=== PATIENT | female | born 1955 | race Caucasian/White ===

== ENCOUNTER 2024-01-01 12:44 | Outpatient (OUT) | payer MEDICARE, SELFPAY ==
--- NOTE | 2024-01-01 12:55 | MM_ITS ---
Patient Name: CASEY HAYES MR#: [id number] : 1955 Exam Date: 01/01/2024 Ordering Doctor: MARIETTA WASHINGTON CNP RADIOLOGY REPORT PROCEDURE: MM TOMOSYNTHESIS SCREENING BI COMPARISON: MG MAMM SCREEN 3D AMNA CAD, 12/30/2022. MG MAMM SCREEN 3D AMNA CAD, 04/22/2021. MG MAMM SCREEN AMNA W CAD, 08/31/2019. MG MAMM AMNA DIAG W CAD DIG, 03/21/2009. INDICATIONS: Screening Calculator Name NCI Breast Cancer Risk Assessment Tool 5 Year Breast Cancer Risk 1.90% Lifetime Breast Cancer Risk 6.40% Personal Breast Cancer No Personal Ovarian Cancer No Treatments None Family Cancers Aunt-maternal with breast cancer at age 80; Mother with colon cancer at age 79; Sister with cervical cancer at age 60. LOCATION: [facility] BREAST COMPOSITION: Scattered areas fibroglandular density. FINDINGS: DIAGNOSTIC CATEGORY 2--BENIGN FINDING: RIGHT BREAST: No significant suspicious finding. Stable rim calcified oil cysts. No significant change has occurred. LEFT BREAST: No significant suspicious finding. Scattered benign-appearing lymph nodes are present. No significant change has occurred. RECOMMENDATIONS: ROUTINE MAMMOGRAM AND CLINICAL EVALUATION IN 12 MONTHS. PLEASE NOTE: A NORMAL MAMMOGRAM DOES NOT EXCLUDE THE POSSIBILITY OF BREAST CANCER. A CLINICALLY SUSPICIOUS PALPABLE LUMP SHOULD BE BIOPSIED. Dictated by: Frank Friedman M.D. on 01/01/2024 at 15:26 Approved by: Frank Friedman M.D. on 01/01/2024 at 15:28
== END 2024-01-01 12:45 | disposition home or self-care (01) ==
LOC: MAMMO 12:49
PROVIDERS: Visit Provider Nurse Practitioner Family
DX: Z12.31 Encounter for screening mammogram for malignant neoplasm of breast (principal); Z80.3 Family history of malignant neoplasm of breast; Z80.0 Family history of malignant neoplasm of digestive organs; Z80.8 Family history of malignant neoplasm of other organs or systems
CPT/HCPCS: 77063; 77067

== ENCOUNTER 2024-03-03 08:41 | Outpatient (OUT) | payer MEDICARE, SELFPAY ==
[2024-03-03 09:23] LABS: Basophils Absolute Auto 0.1 10^3/uL (0.0-0.1); Eosinophils Absolute Auto 0.3 10^3/uL (0.0-0.7); Eosinophils Percent Auto 3.5 % (0.9-7.0); Hematocrit 39.9 % (36.0-48.0); Hemoglobin 12.9 g/dL (12.0-16.0); Immature Granulocytes Abs Auto 0.01 10^3/uL (0.00-0.03); Immature Granulocytes Pct Auto 0.1 % (0.0-0.5); Lymphocytes Absolute Auto 2.1 10^3/uL (1.2-3.8); Mean Corpuscular HGB Conc 32.3 g/dL (29.9-35.2); Mean Corpuscular Hemoglobin 29.7 pg (26.7-34.0); Mean Corpuscular Volume 91.9 fL (81.0-99.0); Mean Platelet Volume 10.8 fL (9.5-13.5); Monocytes Absolute Auto 0.4 10^3/uL (0.3-0.8); Monocytes Percent Auto 6.1 % (1.7-12.0); Neutrophils Absolute Auto 4.3 10^3/uL (1.4-6.5); Neutrophils Percent Auto 60.3 % (43.0-75.0); Platelet Count 180 10^3/uL (150-450); Red Blood Count 4.34 10^6/uL (4.20-5.40); Red Cell Distribution Width 13.3 % (11.0-15.0); White Blood Count 7.2 10^3/uL (4.0-11.0)
[2024-03-03 09:51] LABS: Estimated Average Glucose 171 mg/dL; Glycohemoglobin A1C 7.6 % (4.5-6.2)
[2024-03-03 10:45] LABS: Alanine Aminotransferase 47 U/L (14-59); Albumin Globulin Ratio 1.1; Albumin Level 3.6 g/dL (3.4-5.0); Alkaline Phosphatase 84 U/L (46-116); Anion Gap 13.7; Aspartate Amino Transferase 30 U/L (15-37); Bilirubin Total 0.5 mg/dL (0.2-1.0); Calcium 9.3 mg/dL (8.5-10.1); Carbon Dioxide 25.7 mmol/L (21.0-32.0); Chloride 101 mmol/L (98-107); Chol HDL Ratio 3.3; Cholesterol 131 mg/dL (<=200); Estimated GFR (African America >60 (>=60); Estimated GFR (Non-African Ame >60 (>=60); Free T3 2.36 pg/mL (2.18-3.98); Globulin 3.2 g/dL; Glucose 162 mg/dL (74-106); HDL Cholesterol 40 mg/dL (40-60); Potassium 4.4 mmol/L (3.5-5.1); Sodium 136 mmol/L (136-145); Thyroid Stimulating Hormone 2.278 uIU/mL (0.358-3.740); Total Protein 6.8 g/dL (6.4-8.2); Triglycerides 216 mg/dL (<=150); VLDL CHOLESTEROL 43.2 mg/dL
[2024-03-04 11:11] LABS: Insulin 21.2 uIU/mL (2.6-24.9)
== END 2024-03-03 08:42 | disposition home or self-care (01) ==
LOC: LAB 08:43
PROVIDERS: PCP Nurse Practitioner Family; Visit Provider Nurse Practitioner Family
DX: E11.9 Type 2 diabetes mellitus without complications (principal)
CPT/HCPCS: 36415; 80053; 80061; 82306; 83036; 83525; 83540; 84436; 84443; 84481; 85025

== ENCOUNTER 2024-11-08 15:34 | Outpatient (OUT) | payer MEDICARE, SELFPAY ==
[2024-11-08 15:55] LABS: Hematocrit 41.7 % (36.0-48.0); Hemoglobin 13.8 g/dL (12.0-16.0); Mean Corpuscular HGB Conc 33.1 g/dL (29.9-35.2); Mean Corpuscular Volume 90.7 fL (81.0-99.0); Mean Platelet Volume 10.8 fL (9.5-13.5); Platelet Count 222 10^3/uL (150-450); Red Cell Distribution Width 12.9 % (11.0-15.0); White Blood Count 25.3 10^3/uL (4.0-11.0)
[2024-11-08 16:05] LABS: Alanine Aminotransferase 30 U/L (14-59); Albumin Globulin Ratio 0.8; Albumin Level 3.4 g/dL (3.4-5.0); Alkaline Phosphatase 74 U/L (46-116); Anion Gap 12.8; Aspartate Amino Transferase 25 U/L (15-37); BUN Creatinine Ratio 17.9; Bilirubin Total 1.5 mg/dL (0.2-1.0); Calcium 9.4 mg/dL (8.5-10.1); Carbon Dioxide 29.2 mmol/L (21.0-32.0); Chloride 94 mmol/L (98-107); Estimated GFR (African America >60 (>=60 mL/min/1.73m^2); Estimated GFR (Non-African Ame 52 (>=60 mL/min/1.73m^2); Globulin 4.1 g/dL; Glucose 291 mg/dL (74-106); Sodium 132 mmol/L (136-145); Total Protein 7.5 g/dL (6.4-8.2)
[2024-11-08 16:35] LABS: Lymphocytes Absolute Manual 1.01 10^3/uL (1.20-3.80); Monocytes Absolute Manual 2.02 10^3/uL (0.30-0.80); Segmented Neut Absolute Manual 22.26 10^3/uL (1.4-6.5)
== END 2024-11-08 15:35 | disposition home or self-care (01) ==
PROVIDERS: PCP Nurse Practitioner Family; Visit Provider Nurse Practitioner Family
DX: R10.31 Right lower quadrant pain (principal)
CPT/HCPCS: 36415; 80053; 85007; 85027

== ENCOUNTER 2024-11-08 16:32 | Emergency (ER) | payer MEDICARE, SELFPAY ==
[2024-11-08] VITALS (40 sets, daily range): BP systolic 133; BP diastolic 69; PULSE 81–102; TEMP 36.6; O2SAT 87–98; BMI 43.1
--- NOTE | 2024-11-08 17:14 | ED_ITS ---
HPI HPI - General Adult General Chief complaint: Recheck/Abnormal Lab/Rx Stated complaint: abnormal labs Time Seen by Provider: 11/08/24 16:50 Source: patient Mode of arrival: walk-in Limitations: no limitations History of Present Illness HPI narrative: Patient presented to 4 days of right lower quadrant abdominal pain associated with recently more nausea and vomiting than her baseline, this is associated with no constipation, and also associated with decreased p.o. intake Patient mentioned that the pain is severe 10 out of 10 whenever she moves but when she is resting it can be down to 8 The pain is associated with nausea and vomiting and decreased p.o. intake No burning with urination no blood in urine or stool The patient still have her appendix Related Data Home Medications ?Medication ?Instructions ?Recorded ?Confirmed atorvastatin 40 mg tablet 40 mg PO DAILY 11/08/24 11/08/24 lisinopril 40 mg tablet 40 mg PO DAILY 11/08/24 11/08/24 metformin 1,000 mg tablet 1,000 mg PO BID 11/08/24 11/08/24 Allergies Allergy/AdvReac Type Severity Reaction Status Date / Time No Known Drug Allergies Allergy Verified 11/08/24 16:52 Opioid HPI Opioid Management Most Recent Opioid Data: Last Pain Scale 3 11/08/24 16:55 11/08/24 Review of Systems ROS Status of ROS 10 or more systems reviewed and unremark able except as noted in history and below PFSH PFSH Social History Little interest or pleasure in doing things: not at all Feeling down, depressed, or hopeless: not at all Exam Narrative Exam Narrative: Nurses notes and vital signs reviewed and patient is not hypoxic. General: Well-appearing and in no apparent distress. Skin: Warm, dry, no pallor noted. No rash. Head: Normocephalic, atraumatic. Neck: Supple, non-tender. Eye: Pupils are equal, round and EOMI. No scleral icterus Cardiovascular: Regular Rate and Rhythm without murmur, gallop or rub. Respiratory: No accessory muscle use or respiratory distress. Lungs are clear to auscultation, no wheezing, rales or rhonchi Chest Wall: no tenderness Back: No midline thoracic or lumbar vertebral tenderness. No CVA tenderness Musculoskeletal: normal ROM, no calf or popliteal tenderness, no lower extremity edema/swelling GI: Abdomen is soft, obese abdomen with a right lower quadrant tenderness noted on palpation Constitutional Vital Signs, click to edit/add: Last Vital Signs Temp 97.8 F 11/08/24 16:47 Pulse 95 H 11/08/24 16:47 Resp 15 11/08/24 16:47 BP 133/69 11/08/24 16:47 Pulse Ox 97 11/08/24 16:47 Course Vital Signs Vital signs: Vital Signs Temperature 97.8 F 11/08/24 16:47 Pulse Rate 95 H 11/08/24 16:47 Respiratory Rate 15 11/08/24 16:47 Blood Pressure 133/69 11/08/24 16:47 Pulse Oximetry 97 11/08/24 16:47 Temperature 97.8 F 11/08/24 16:47 Pulse Rate 95 H 11/08/24 16:47 Respiratory Rate 15 11/08/24 16:47 Blood Pressure 133/69 11/08/24 16:47 Pulse Oximetry 97 11/08/24 16:47 Medical Decision Making MDM Narrative Medical decision making narrative: The patient did have a lactic acid 2.8 with a white blood cell that 25 The patient chemistry showed no acute significant pathology except for some low mildly sodium The patient right now had a CAT scan abdomen pelvis with contrast and showed that she have acute cystitis IV fluid given with 1 L with a blood culture obtained and the patient was started on Zosyn The patient case was discussed with And Pepe Pulido from general surgery and Dr. Domenico Dillon accepted the patient under his direct service He requested the patient to be given another liter of fluid not the total sepsis protocol for now as the patient is not tachycardic and to repeat the lactic acid after the second liter of fluid Patient Lab Data Labs: Lab Results 11/08/24 Range/Units 17:43 Lactate 2.8 H* (0.4-2.0) mmol/L Discharge Plan Discharge Chief Complaint: Recheck/Abnormal Lab/Rx Clinical Impression: Acute cholecystitis Patient Disposition: [facility] Time of Disposition Decision: 18:44 Discharge location: pepe Dillon
--- NOTE | 2024-11-08 17:28 | CT_ITS ---
The [address] [address] Patient Name: CASEY HAYES MRN: [id number] date: 1955 Sex: F Assigned Patient Location: ER Current Patient Location: ER Accession/Order Number: [id number] Exam Date: 11/08/2024 17:14 Report Date: 11/08/2024 18:30 At the request of: MARIETTA WASHINGTON Procedure: CT abdomen pelvis w con EXAM: CT abdomen pelvis w con TECHNIQUE: Axial CT images were obtained of the abdomen and pelvis with intravenous contrast. Sagittal and coronal reformatted images were also obtained. Dose reduction techniques were achieved by using automated exposure control and/or adjustment of mA and/or kV according to patient size and/or use of iterative reconstruction technique. HISTORY: Right lower quadrant pain COMPARISON: None. FINDINGS: Lower chest: The lower lungs are clear. Liver: Liver demonstrates diffuse decreased attenuation consistent with steatosis. Gallbladder: There is gallbladder wall thickening and pericholecystic edema. No biliary dilatation. Pancreas: The pancreas is homogeneous without evidence for mass lesion or inflammation. Spleen: The spleen is unremarkable without evidence for mass lesion. Adrenal glands: The adrenal glands are unremarkable Kidneys and bladder: The kidneys are unremarkable with no evidence for mass lesion, hydronephrosis or inflammation. The ureters demonstrate normal caliber. The urinary bladder is unremarkable. GI Tract: Stomach is unremarkable. Visualized small bowel is unremarkable without evidence for obstruction or active inflammation. The appendix is unremarkable.Diverticula are seen of the colon, more significant involving the distal colon. The visualized large bowel is otherwise unremarkable. Reproductive: The uterus has been removed. Lymph nodes: No retroperitoneal or abdominal lymphadenopathy. Vascular: The aorta is not dilated. Dense calcification at the origins of the superior mesenteric and renal arteries. Peritoneum: Small amount of free fluid in the pelvis. Abdominal wall: Degenerative changes of the lumbar spine. Degenerative grade 1 anterolisthesis of L4 on L5. CT/CT abdomen pelvis w con IMPRESSION: Findings of acute cholecystitis. Electronically authenticated by: NILES DA SILVA Date: 11/08/2024 18:30
[2024-11-08] MEDS: 0.9 % SODIUM CHLORIDE 1,000 ML 1000 ML IV ×2 (17:29→19:24)
[2024-11-08] MEDS: ONDANSETRON PF 4 MG/2 ML VIAL IV (17:30)
[2024-11-08] MEDS: MORPHINE SULFATE 4 MG/ML VIAL IV ×2 (17:30→21:14)
[2024-11-08] MEDS: PIPERACILLIN SODIUM/TAZOBACTAM 4.5 GM in 0.9 % SODIUM CHLORIDE 50 ML IV (17:30)
[2024-11-08 18:35] LABS: Lactate/Lactic Acid 2.8 mmol/L (0.4-2.0)
[2024-11-08 21:40] LABS: Lactate/Lactic Acid 1.6 mmol/L (0.4-2.0)
[2024-11-09] VITALS (10 sets, daily range): O2SAT 91–95
== END 2024-11-09 02:04 | disposition short-term general hospital (02) ==
PROVIDERS: Emergency Provider Emergency Medicine; PCP Nurse Practitioner Family
DX: K81.0 Acute cholecystitis (principal); R10.31 Right lower quadrant pain
CPT/HCPCS: 36415; 74177; 80053; 83605; 83690; 85007; 85027; 87040; 96361; 96365; 96375; 96376; 99285; J2270; J2405; J2543; Q9966; Q9967

== ENCOUNTER 2025-01-03 09:52 | Outpatient (OUT) | payer MEDICARE, SELFPAY ==
--- NOTE | 2025-01-03 09:54 | MM_ITS ---
Patient Name: CASEY HAYES MR#: [id number] : 1955 Exam Date: 01/03/2025 Ordering Doctor: MARIETTA WASHINGTON [facility] RADIOLOGY REPORT PROCEDURE: MM TOMOSYNTHESIS SCREENING BI COMPARISON: MM TOMOSYNTHESIS SCREENING BI, 01/01/2024. MG MAMM SCREEN 3D AMNA CAD, 12/30/2022. MG MAMM SCREEN 3D AMNA CAD, 04/22/2021. MG MAMM AMNA DIAG W CAD DIG, 03/21/2009. INDICATIONS: Screening Calculator Name NCI Breast Cancer Risk Assessment Tool 5 Year Breast Cancer Risk 1.90% Lifetime Breast Cancer Risk 6.20% Personal Breast Cancer No Personal Ovarian Cancer No Treatments None Family Cancers Aunt-maternal with breast cancer at age 80; Mother with colon cancer at age 79; Sister with cervical cancer at age 60. LOCATION: [facility] BREAST COMPOSITION: There are scattered areas of fibroglandular density. FINDINGS: DIAGNOSTIC CATEGORY 1--NEGATIVE. LEFT BREAST: No significant suspicious finding. RIGHT BREAST: No significant suspicious finding. RECOMMENDATIONS: ROUTINE MAMMOGRAM AND CLINICAL EVALUATION IN 12 MONTHS. PLEASE NOTE: A NORMAL MAMMOGRAM DOES NOT EXCLUDE THE POSSIBILITY OF BREAST CANCER. A CLINICALLY SUSPICIOUS PALPABLE LUMP SHOULD BE BIOPSIED. Dictated by: Sage Nguyen DO on 01/03/2025 at 16:03 Approved by: Sage Nguyen DO on 01/03/2025 at 16:08
--- OUTSIDE RECORDS SUMMARY | 2025-01-03 10:04 | XMS_ITS | CCD ---
Author Organization [facility] Care Team Providers Care National Account Representative Name Role Phone MARIETTA WASHINGTON Admitting Unavailable MARIETTA WASHINGTON Attending Unavailable SAMMY LAINEZ Primary Care Unavailable MARIETTA WASHINGTON Consulting Unavailable MARIETTA WASHINGTON Admitting Unavailable MARIETTA WASHINGTON Attending Unavailable SAMMY LAINEZ Primary Care Unavailable DR TRACE CALVO V Consulting Unavailable MARIETTA WASHINGTON Unavailable Domenico Loo Attending Unavailable Domenico Loo Admitting Unavailable MD Domenico Loo Attending Unavailable MD Domenico Loo Admitting Unavailable MARIETTA WASHINGTON Primary Care Physician [phone] MD Domenico Loo Attending Unavailable MD Domenico Loo Admitting Unavailable Jose Issa Attending Unavailable Tulio London Attending UnavailDannielle Park Referring Unavailable Medications Current Medications Medication Drug Class(es) Dates Sig (Normalized) Sig (Original) acetaminophen 325 mg oral tablet (2 sources) Start: 11-10-2024 take 3 tablets by mouth every six hours acetaminophen 325 mg Tab 975 mg = 3 tab(s), Oral, q6hr, Refills(s) 0 Start Date: 11/10/24 Status: Ordered amoxicillin 875 mg / clavulanate 125 mg oral tablet (1 source) Penicillin-class Antibacterial Start: 11-10-2024 End: 11-14-2024 take 1 tablet by mouth every twelve hours Augmentin 875 mg oral tablet = 1 tab(s), Oral, q12hr, X 4 day(s), # 8 tab(s), Refills(s) 0 Start Date: 11/10/24 Stop Date: 11/14/24 Status: Ordered aspirin 81 mg delayed release oral tablet (2 sources) Platelet Aggregation Inhibitor, Nonsteroidal Anti-inflammatory Drug Start: 11-09-2024 take 1 tablet by mouth once daily aspirin 81 mg Oral EC Tab 81 mg = 1 tab(s), Oral, Daily, # 30 tab(s), Refills(s) 0 Start Date: 11/09/24 Status: Ordered atorvastatin 40 mg oral tablet (2 sources) HMG-CoA Reductase Inhibitor Start: 11-09-2024 take 1 tablet by mouth once daily atorvastatin 40 mg Tab 40 mg = 1 tab(s), Oral, Daily, # 30 tab(s), Refills(s) 0 Start Date: 11/09/24 Status: Ordered Garlic preparation (2 sources) Non-Standardized Food Allergenic Extract Start: 11-09-2024 Garlic Refill(s) 0 Start Date: 11/09/24 Status: Ordered metFORMIN hydrochloride 1000 mg oral tablet (2 sources) Biguanide Start: 11-09-2024 take 1 tablet by mouth twice daily metformin 1000 mg Tab 1,000 mg = 1 tab(s), Oral, BID, # 180 tab(s), Refills(s) 0 Start Date: 11/09/24 Status: Ordered oxyCODONE hydrochloride 5 mg oral tablet (1 source) Opioid Agonist Start: 11-10-2024 End: 11-13-2024 oxyCODONE 5 mg Tab 5 mg = 1 tab(s), Oral, q6hr, PRN Pain 8-10, X 3 day(s), # 12 tab(s), Refills(s) 0 Start Date: 11/10/24 Stop Date: 11/13/24 Status: Ordered sennosides, senior living 8.6 mg oral tablet (2 sources) Start: 11-10-2024 End: 11-20-2024 take 1 tablet by mouth once daily at bedtime as needed for constipation senna 8.6 mg Tab 8.6 mg = 1 tab(s), Oral, Once a day (at bedtime), PRN as needed for constipation, X 10 day(s), # 10 tab(s), Refills(s) 0 Start Date: 11/10/24 Stop Date: 11/20/24 Status: Ordered Vitamin D3 1000 intl units (25 mcg) Tab (2 sources) Start: 11-09-2024 take 1 tablet by mouth once daily Vitamin D3 1000 intl units (25 mcg) Tab 25 mcg = 1 tab(s), Oral, Daily, Refills(s) 0 Start Date: 11/09/24 Status: Ordered Completed/Discontinued Medications Medication Drug Class(es) Dates Sig (Normalized) Sig (Original) lisinopril 20 mg oral tablet (3 sources) Angiotensin Converting Enzyme Inhibitor Start: 11-10-2024 End: 11-10-2024 lisinopril 20 mg Tab 40 mg = 2 tab(s), Tab, Oral, Start date 11/10/24 9:00:00 AM EST, 11/09/24 7:27:00 EST Start Date: 11/10/24 Stop Date: 11/10/24 Status: Completed Start: 11-09-2024 take 1 tablet by jose th once daily lisinopril 40 mg Tab 40 mg = 1 tab(s), Oral, Daily, # 30 tab(s), Refills(s) 0 Start Date: 11/09/24 Status: Ordered Problems Active Problems Problem Classification Problem Date Documented Date Episodic/Chronic Biliary tract disease (6 sources) Acute cholecystitis; Translations: [K81.0] Onset: 11-09-2024 Episodic Diabetes mellitus with complications (1 source) Hyperglycemia due to type 2 diabetes mellitus; Translations: [Type 2 diabetes mellitus with hyperglycemia] Onset: 11-10-2024 Chronic Diabetes mellitus without complication (4 sources) Type 2 diabetes mellitus without complications; Translations: [TYPE 2 DM WITHOUT COMPLICATIONS] Onset: 12-29-2022 Chronic Diabetes mellitus without complication (1 source) Other abnormal glucose; Translations: [OTHER ABNORMAL GLUCOSE] Onset: 01-05-2023 Episodic Disorders of lipid metabolism (1 source) Hyperlipidemia, unspecified; Translations: [HYPERLIPIDEMIA UNSPECIFIED] Onset: 01-05-2023 Chronic Other nervous system disorders (1 source) Postoperative pain ; Translations: [Other acute postprocedural pain] Onset: 11-10-2024 Episodic Other screening for suspected conditions (not mental disorders or infectious disease) (4 sources) Encounter for screening mammogram for malignant neoplasm of breast; Translations: [ENC SCR MAMMO MALIG NEOPLASM BREAST] Onset: 12-30-2022 Episodic Residual codes; unclassified (1 source) Family history of malignant neoplasm of breast; Translations: [FAMILY HX MALIG NEOPLASM OF BREAST] Onset: 01-05-2023 Episodic Residual codes; unclassified (1 source) Family history of malignant neoplasm of digestive organs; Translations: [FAM HX MALIG NEOPLASM DIGESTIV ORGN] Onset: 01-05-2023 Episodic Residual codes; unclassified (1 source) Family history of malignant neoplasm of other genital organs; Translations: [SALVADOR ALLAN NEOPLSM OTH GENIT ORGN] Onset: 01-05-2023 Episodic Past or Other Problems Problem Classification Problem Date Documented Da te Episodic/Chronic Chronic obstructive pulmonary disease and bronchiectasis (1 source) Chronic obstructive pulmonary disease and bronchiectasis 11-11-2024 Results Test Name Value Interpretation Reference Range Facility Trauma Office/Clinic Noteon 11-16-2024 Trauma Office/Clinic Note Trauma Office/Clinic Note Chief Complaint s/p cholecystectomy HPI Staff Ciera is a 69 y.o. female here for wound check Patient was a direct admit from OSH due to cholecystitis s/p cholecystectomy done 11/10/24. CALI drain placed patient states she has intermittent RLQ pain described as sharp or ache History of Present Illness 69-year-old female status postcholecystectomy, here for postop visit and CALI drain evaluation and removal. CALI drain placed due to concerns for potential of necrosis of the cystic duct stump. Patient states that she is overall doing well, CALI drain output has been minimal and serosanguineous per denies any dark green/brown or bile appearing fluid. Has been tolerating regular without issue, no fevers or chills, ambulating without issue. Review of Systems PHQ Score Initial Depression Screen Score: 0 SCORE All organ systems are reviewed. Pertinent positive and negative findings as mentioned in the HPI. Physical Exam Vitals & Measurements HR: 61(Peripheral) BP: 121/70 HT: 61 in HT: 154 cm WT: 103 kg WT: 227.076 lb BMI: 43.43 GENERAL: alert, pleasant, conversational. HEENT: normocephalic. oral mucosa moist. CARDIOVASCULAR: RRR. PULMONARY: CTAB. breathing comfortably on room air ABDOMINAL: abdomen is nontender., nondistended. Lap sandra incisions C/D/I. No erythema, drainage, induration, fluctuance noted. CALI drain right upper quadrant with scant amount of serosanguineous output. No evidence of bilious output. EXTREMITIES: moves all extremities with equal strength NEUROLOGICAL: AxO x3 Assessment/Plan 69-year-old female status postcholecystectomy, here for postop visit and CALI drain evaluation and removal - Pathology reviewed, no evidence of malignancy - Pt afebrile, VSS, incisions C/D/I without evidence of infection - Pt advancing as expected, tolerating diet w/o N/V. Voiding spontaneously -CALI drain without evidence of bile or bile leak, removed at bedside, patient tolerated well. - Pt to follow with [facility] clinic as needed, no indication for scheduled f/u Dannielle Kim PA-C Trauma Surgery/Surgical Critical Care/Emergency General Surgery Problem List/Past Medical History Ongoing No qualifying data Historical COPD (Chronic Obstructive Pulmonary Disease) Assessment Test scale Procedure/Surgical History Cholecystectomy (11/09/2024). Medications acetaminophen 325 mg Tab, 975 mg= 3 tab(s), Oral, q6hr aspirin 81 mg Oral EC Tab, 81 mg= 1 tab(s), Oral, Daily atorvastatin 40 mg Tab, 40 mg= 1 tab(s), Oral, Daily Garlic lisinopril 40 mg Tab, 40 mg= 1 tab(s), Oral, Daily metformin 1000 mg Tab, 1000 mg= 1 tab(s), Oral, BID senna 8.6 mg Tab, 8.6 mg= 1 tab(s), Oral, Once a day (at bedtime), PRN Vitamin D3 1000 intl units (25 mcg) Tab, 25 mcg= 1 tab(s), Oral, Daily Allergies No Known Allergies Social History Alcohol - Denies Alcohol Use, 11/11/2024 Substance Abuse - Denies Substance Abuse, 11/11/2024 Tobacco - Denies Tobacco Use, 11/11/2024 Never (less than 100 in lifetime) Tobacco Use:. Never Smokeless Tobacco Use:. Cigarettes, 11/16/2024 Immunizations Vaccine Date Status Comments zoster vaccine, inactivated 07/17/2023 Recorded influenza virus vaccine, inactivated 07/17/2023 Recorded zoster vaccine, inactivated 04/16/2023 Recorded SARS-CoV-2 (COVID-19) [id number] 08/21/2022 Recorded 2024-11-16: TPV65 SARS-CoV-2 (COVID-19) mRNA-1273 vaccine 10/23/2021 Recorded 2024-11-16: TPV65 SARS-CoV-2 (COVID-19) mRNA-1273 vaccine 01/12/2021 Recorded 2024-11-16: TPV65 SARS-CoV-2 (COVID-19) mRNA-1273 vaccine 12/15/2020 Recorded 2024-11-16: TPV65 influenza virus vaccine, inactivated 07/21/2017 Recorded pneumococcal 23-valent vaccine 03/19/2010 Recorded Normal [facility] Comment on above: Result Comment: Elec tronically Signed By: Dannielle Kim PA-C\.br\Date and Time Signed: 11/16/24 11:17 EST\.br\Electronically Co-Signed By: Lita KING, Tulio López\.br\Date and Time Co-Signed: 11/16/24 11:31 EST Surgical Pathology Reporton 11-14-2024 Surgical Pathology Report [facility] [address] [place] [address]- Surgical Pathology Report Collected Date/Time: 11/09/2024 14:16 EST Pathologist: Michael KING PhD, Melania Carlson Received Date/Time: 11/10/2024 08:31 EST Santana KING, Domenico Loo MD, Domenico Sky 07 Surgical Pathology Report - 11/14/2024 11:01 EST - Auth (Verified) Final Diagnosis GALLBLADDER, CHOLECYSTECTOMY: - EXTENSIVE HEMORRHAGIC GANGRENOUS CHOLECYSTITIS WITH TRANSMURAL INVOLVEMENT. (Electronic Signature) Melania Rodriguez MD PhD 11/14/2024 11:01 Clinical Information Acute cholecystitis Pre-Op Diagnosis: Acute cholecystitis Procedure: Cholecystectomy Post-Op Diagnosis: Acute gangrenous cholecystitis Specimen(s) Received Gallbladder Gross Description Received in formalin labeled with patient name, number, and gallbladder is a previously opened gallbladder measuring 9 x 5.4 x 3 cm. The serosal surface is guan, fatty, with a slightly hemorrhagic fragmented appearance. Surgical clip is identified at the cystic duct end which is inked green. The wall of the gallbladder measures up to 0.9 cm in thickness. The mucosal surface is guan, hemorrhagic, and has a light green plaque-like discoloration. Specimen is submitted in a total of six cassettes: 1 - Cystic duct region 2-6 - Real Estate Lawyer portion of the remainder of gallbladder (DC) DC:[facility] Microscopic Description Microscopic examination performed unless gross only specified. This report was transcribed using voice recognition technology and might contain unintended computerized bus mechanic errors. Normal [facility] Comment on above: Performed By: #### [id number] #### [facility] [address] [place] [id number] ED Clinical Summaryon 2024 ED Clinical Summary ED Clinical Summary [address] [address] ED Clinical Summary Person Information Name: CIERA HAYES [facility] Age: 69 Years : 1955 Sex: Female Language: Faroese PCP: MARIETTA WASHINGTON CNP Marital Status: Visit Id: Visit Reason: Post surgical problem; POST SURGICAL PROBLEMS Speciality: Acuity: 2 Enc Type: Emergency Med Service: Emergency Arrival: 11/11/2024 10:55:52 Discharge: 11/11/2024 12:14:41 LOS: 000 01:19 Checkin: 11/11/2024 10:55:52 Checkout: 11/11/2024 12:14:41 Dispo Type: Home (Routine DC) EVENTS: Event Name Event Status Request Date/Time Start Date/Time Complete Date/Time Arrive Complete 11/11/2024 10:55:52 11/11/2024 10:55:52 11/11/2024 10:55:52 Document Home Meds Request 11/11/2024 10:55:52 Triage Complete 11/11/2024 10:55:52 11/11/2024 11:14:57 11/11/2024 11:14:57 Bed Assign Complete 11/11/2024 11:04:54 11/11/2024 11:04:54 11/11/2024 11:04:54 Dr Exam Complete 11/11/2024 11:04:54 11/11/2024 11:05:13 11/11/2024 11:05:13 RN Exam Complete 11/11/2024 11:04:54 11/11/2024 11:16:07 11/11/2024 11:16:07 Registration Complete 11/11/2024 11:05:13 11/11/2024 11:05:22 11/11/2024 11:06:27 Reg Complete Request 11/11/2024 11:06:27 Reg Bed Request Complete 11/11/2024 11:06:27 11/11/2024 11:06:27 11/11/2024 11:06:27 Discharge Complete 11/11/2024 11:41:59 11/11/2024 12:14:46 11/11/2024 12:14:46 Patient Care Complete 11/11/2024 11:42:55 11/11/2024 12:13:45 Transfer Complete 11/11/2024 12:14:46 11/11/2024 12:14:46 11/11/2024 12:14:46 ADDRESS: [address] [id number] PHYS DOC NOTES: MEDICAL INFORMATION: Prescriptions Given: Medications to Continue with No Changes Other Medications acetaminophen (acetaminophen 325 mg Tab) 3 Tablets By Mouth every 6 hours. amoxicillin-clavulana te (Augmentin 875 mg oral tablet) 1 Tablets By Mouth every 12 hours for 4 Days. Refills: 0. aspirin (aspirin 81 mg Oral EC Tab) 1 Tablets By Mouth every day. atorvastatin (atorvastatin 40 mg Tab) 1 Tablets By Mouth every day. cholecalciferol (Vitamin D3 1000 intl units (25 mcg) Tab) 1 Tablets By Mouth every day. garlic (Garlic) lisinopril (lisinopril 40 mg Tab) 1 Tablets By Mouth every day. metformin (metformin 1000 mg Tab) 1 Tablets By Mouth 2 times a day. oxycodone (oxyCODONE 5 mg Tab) 1 Tablets By Mouth every 6 hours as needed Pain 8-10 for 3 Days. Refills: 0. senna (senna 8.6 mg Tab) 1 Tablets By Mouth once a day (at bedtime) as needed as needed for constipation for 10 Days. Refills: 0. PATIENT EDUCATION INFORMATION: Instructions: Follow up: With: Address: When: Domenico Bean, [facility] [address], [facility] [address] [place] [address] [phone] Business (1) In 5 days 11/16/2024 With: Address: When: MARIETTA WASHINGTON [address], [facility] [place] [address] [phone] Business (1) In 3 days DIAGNOSIS: Visit for wound check [facility] ED Note-Nursingon 11-11-2024 ED Note-Nursing ED Note-Nursing RN sent pt home with x3 t-sponge dressings and tape per Dr. Loo's request Normal [facility] ED Note-Physicianon 11-11-19 ED Note-Physician ED Note-Physician Basic Information Time Seen: Jose Issa DO 11/11/2024 11:05 Chief Complaint had gallbladder taken out by dr loo yesterday. reporting drainage around drain tube. History of Present Illness 69 female presents emergency department with concerns about postoperative drainage. Patient states that she was just here had a cholecystectomy yesterday with our surgical team. She came back today because she has noticed some drainage around the tube and became concerned about pathology around that tube. She is not complaining of any increased pain there is been no fevers no vomiting she otherwise feels okay. She does not recall any specific injury to this area but does recall that they told her she needed to be very careful so as not to pull out any of the stitches involved with this tube in the right side of her abdomen. She is not on any blood thinning medications has not noticed any blood from the area. She has had some drainage into her drain as well but reports no changes with this. No other aggravating or relieving factors no other associated symptoms no other prior treatments or complaints. Family: Reviewed and noncontributory Social: lives at home Review of systems negative unless otherwise specified in the HPI. Physical Exam Vitals & Measurements T: 37 ???C(Oral) HR: 95(Peripheral) RR: 18 BP: 150/75 SpO2: 95% HT: 154.94 cm WT: 1110.5 kg BMI: 462.58 General: The patient appears well and in no apparent distress. Patient is resting comfortably on cart. Skin: Warm, dry, no pallor noted. Incision sites are clean, dry, intact. I did take down the dressing around the CALI drain from the right side of the abdomen postsurgical sites and I do not see any active drainage or bleeding there is no redness or pus to this area. The tube does seem to be stitched to the skin surrounding the area Head: Normocephalic, atraumatic Neck: No JVD Eye: PERRLA, EOMI ENT: Moist mucus membranes Cardiovascular: Regular rate normal peripheral perfusion Respiratory: No respiratory distress no accessory muscle use no obvious audible wheezing Chest Wall: no deformity Musculoskeletal: normal ROM, no deformity, no swelling GI: Soft no obvious distention. No rebound or rigidity. No guarding. Appropriately tender to palpation given the patient's surgery yesterday however I was not able to elicit any focal tenderness or guarding. Neurological: A&O moves all extremities equal strength and symmetry Psychiatric: Cooperative and appropriate Medical Decision Making Case was discussed with surgery in consultation they did evaluate the patient. Dressing here was changed there was no further intervention needed at this time they will follow-up in the outpatient setting return to ER if symptoms should develop. Assessment/Plan Visit for wound check (Z51.89: Encounter for other specified aftercare) Orders: Dressing Care/Change Disposition Plan Discharge Prescription List Prescriptions Augmentin 875 mg oral tablet, 1 tab(s), Oral, q12hr oxyCODONE 5 mg Tab, 5 mg= 1 tab(s), Oral, q6hr, PRN senna 8.6 mg Tab, 8.6 mg= 1 tab(s), Oral, Once a day (at bedtime), PRN Follow-up With When Contact Information Domenico Loo In 5 days 11/16/[address] [facility], [facility] [address] [address] [phone] Business (1) Additional Instructions: MARIETTA WASHINGTON In 3 days [address] [facility], [facility] [place] [address] [phone] Business (1) Additional Instructions: Problem List/Past Medical History Ongoing No qualifying data Historical COPD (Chronic Obstructive Pulmonary Disease) Assessment Test scale Procedure/Surgical History Cholecystectomy (11/09/2024). Medications Inpatient No active inpatient medications Home acetaminophen 325 mg Tab, 975 mg= 3 tab(s), Oral, q6hr aspirin 81 mg Oral EC Tab, 81 mg= 1 tab(s), Oral, Daily atorvastatin 40 mg Tab, 40 mg= 1 tab(s), Oral, Daily Augmentin 875 mg oral tablet, 1 tab(s), Oral, q12hr Garlic lisinopril 40 mg Tab, 40 mg= 1 tab(s), Oral, Daily metformin 1000 mg Tab, 1000 mg= 1 tab(s), Oral, BID oxyCODONE 5 mg Tab, 5 mg= 1 tab(s), Oral, q6hr, PRN senna 8.6 mg Tab, 8.6 mg= 1 tab(s), Oral, Once a day (at bedtime), PRN Vitamin D3 1000 intl units (25 mcg) Tab, 25 mcg= 1 tab(s), Oral, Daily Allergies No Known Allergies Social History Alcohol - Denies Alcohol Use, 11/11/2024 Substance Abuse - Denies Substance Abuse, 11/11/2024 Tobacco - Denies Tobacco Use, 11/11/2024 Lab Results No qualifying data available. Diagnostic Results No qualifying data available. Normal [facility] Comment on above: Result Comment: Elec tronically Signed By: Jose Issa DO\.br\Date and Time Signed: 11/11/24 11:43 EST ED Patient Education Noteon 11-11-2024 ED Patient Education Note ED Patient Education Note Normal [facility] ED Patient Summaryon 025 ED Patient Summary ED Patient Summary [place] [id number] Patient Discharge Instructions Person Information Name: CIERA HAYES Age: 69 Years Arrival Date: 11/11/2024 10:55:52 Discharge Diagnosis: Visit for wound check Primary Care Physician: MARIETTA WASHINGTON CNP Provider Information Primary Provider: Jose Issa DO Advanced Automotive Project Engineer:None The exam and treatment you received in the Emergency Department were for an urgent problem and are not intended as complete care. It is important that you follow up with a doctor, nurse practitioner, or physician???s emergency room physician assistant for ongoing care. If your symptoms become worse or you do not improve as expected and you are unable to reach your usual health care provider, you should return to the Emergency Department. We are available 24 hours a day. CIERA HAYES has been given the following list of patient education materials, prescriptions and follow-up instructions: Follow-up Instructions: With: Address: When: Domenico Loo [address] [place] [address], [address], [place] [id number] [phone] Business (1) In 5 days 11/16/2024 With: Address: When: MARIETTA WASHINGTON [address], [place] [address] [phone] Business (1) In 3 days In the event that this physician does not participate in your insurance network, please consult with your insurance company to find a nearby participating provider. Patient Education Materials: A MESSAGE TO ALL PATIENTS REGARDING OPIOIDS PRESCRIPTION OPIOIDS: WHAT YOU NEED TO KNOW Prescription opioids can be used to help relieve [id number] pain and are often prescribed following a surgery or injury, or for certain health conditions. These medications can be an important part of the treatment but also come with serious risks. It is important to work with your healthcare provider to make sure you are getting the safest, most effective care. WHAT ARE THE RISKS AND SIDE EFFECTS OF OPIOID USE? Prescription opioids carry serious risks of addiction and overdose, especially with prolonged use. An opioid overdose, often marked by slowed breathing, can cause sudden . The use of prescription opioids can have a number of side effects as well, even when taken as directed: ??? Tolerance???meaning you might need to take more of the medication for the same pain relief ??? Physical dependence???meaning you have symptoms of withdrawal when a medication is stopped ??? Increased sensitivity to pain ??? Constipation ??? Nausea, vomiting, and dry mouth ??? Sleepiness and dizziness ??? Confusion ??? Depression ??? Low levels of testosterone that can result in lower sex drive, energy, and strength ??? Itching and sweating RISKS ARE GREATER WITH: ??? History of drug misuse, substance use disorder, or overdose ??? Mental health conditions (such as depression or anxiety) ??? Sleep apnea ??? Older age (65 years and older) ??? Avoid alcohol while taking prescription opioids. Also, unless specifically advised by your health care provider, medications to avoid include: ??? Benzodiazepines (such as Xanax or Valium) ??? Muscle relaxants (such as Soma or Flexeril) ??? Hypnotics (such as Ambien or Lunesta) ??? Other prescription opioids KNOW YOUR OPTIONS Talk to your health care provider about ways to manage your pain that don???t involve prescription opioids. Some of these options may actually work better and have fewer risks and side effects. Options may include: ??? Pain relievers such as acetaminophen, ibuprofen, and naproxen ??? Some medication that are also used for depression or seizures ??? Physical therapy and exercise ??? Cognitive behavioral therapy, a psychological, goal-directed approach, in which patients learn how to modify physical, behavioral, and emotional triggers of pain and stress. IF YOU ARE PRESCRIBED OPIOIDS FOR PAIN: ??? Never take opioids in greater amounts or more often than prescribed. ??? Follow up with your primary health care provider. o Work together to create a plan on how to manage your pain. o Talk about ways to help manage your pain that don???t involve prescription opioids. o Talk about any and all concerns and side effects. ??? Help prevent misuse and abuse o Never sell or share prescription opioids. o Never use another person???s prescription opioids. ??? Store prescription opioids in a secure place and out of reach of others (this may include visitors, children, friends, and family). ??? Safely dispose of unused prescription opioids: Find your community drug take-back program or your pharmacy mail-back program, or flush them down the toilet, following guidance from the Food and Drug Administration (www.fda.gov/Drugs/Re sourcesForYou). ??? Visit www.cdc.gov/drugoverd ose to learn about the risks of opioids abuse and overdose. ??? If you andie (more content not included)... Normal [facility] Main OR Intraoperative Recor don 11-11-2024 Main OR Intraoperative Record Main OR Intraoperative Record IntraOp Document Type FT Summary Primary Physician: Domenico Loo MD Finalized Date/Time: 11/11/24 08:40:02 Pt. Name: CIERA HAYES/Sex: 1955 Female Med Rec #: [id number] Physician: Domenico Loo MD Financial #: [id number] Pt. Type: O Room/Bed: N309/ Admit/Disch: 11/09/24 03:12:02 - 11/10/24 18:03:57 Institution: Case Times FT Entry 1 Patient Times In Room 11/09/24 13:03:00 Out Room 11/09/24 16:17:00 Procedure Times Start 11/09/24 13:24:00 Stop 11/09/24 16:06:00 Anesthesia Times Start 11/09/24 13:03:00 Stop 11/09/24 16:17:00 Last Modified By: Manuel SALCIDO, Arianna Gutiérrez 11/09/24 16:16:57 General Comments: 11/11/24 Chart opened to review and send charges [facility] Case Attendance FT Entry 1 Entry 2 Entry 3 Case Attendee Santana KING, Domenico FERRIS, Jose Jackson RN, Arianna Gutiérrez Role Performed Surgeon - Primary Anesthesiologist Demand Planning Manager - Primary Benefits Director Time In 11/09/24 13:14:00 11/09/24 13:03:00 11/09/24 13:03:00 Time Out 11/09/24 16:17:00 11/09/24 16:17:00 11/09/24 16:17:00 Procedure CHOLECYSTECTOMY CHOLECYSTECTOMY CHOLECYSTECTOMY LAPAROSCOPIC W/ LAPAROSCOPIC W/ LAPAROSCOPIC W/ CHOLANGI(.) CHOLANGI(.) CHOLANGI(.) Comments dr. kumar supervising out for break at [phone] Last Modified By: Manuel SALCIDO, Arianna Jackson RN, Arianna Jackson RN, Arianna Gutiérrez 11/09/24 Richa P 11/09/24 Richa P 11/09/24 16:16:58 16:16:58 16:16:58 Entry 4 Entry 5 Entry 6 Case Attendee Ruby Lynne SANDBLAST CARVER, Christine Demarco RN, Victorina Boogie Role Performed Scrub - Primary SANDBLAST CARVER/SA Staff - Other Time In 11/09/24 13:03:00 11/09/24 13:05:00 11/09/24 13:05:00 Time Out 11/09/24 16:17:00 11/09/24 13:19:00 11/09/24 13:17:00 Procedure CHOLECYSTECTOMY CHOLECYSTECTOMY CHOLECYSTECTOMY LAPAROSCOPIC W/ LAPAROSCOPIC W/ LAPAROSCOPIC W/ CHOLANGI(.) CHOLANGI(.) CHOLANGI(.) Comments helping in room Last Modified By: Manuel SALCIDO, Arianna Jackson RN, Arianna Jackson RN, Arianna Gutiérrez 11/09/24 Richa P 11/09/24 Richa P 11/09/24 16:16:58 16:16:58 16:16:58 Entry 7 Entry 8 Case Attendee Chase PENN, Bryant Cota, Jean Carlos Gutierrez Role Performed PA/[employer] [employer] [facility] Demand Planning Manager - Relief Time In 11/09/24 13:14:00 11/09/24 14:53:00 Time Out 11/09/24 16:17:00 11/09/24 15:17:00 Procedure CHOLECYSTECTOMY CHOLECYSTECTOMY LAPAROSCOPIC W/ LAPAROSCOPIC W/ CHOLANGI(.) CHOLANGI(.) Comments break relief Last Modified By: Manuel SALCIDO, Arianna Jackson RN, Arianna Gutiérrez 11/09/24 Richa Gutiérrez 11/09/24 16:16:58 16:16:58 Perioperative Protocols FT Pre-Care Text: Implements protective measures prior to operative or invasive procedure, confirms identity before the operative or invasive procedure, verifies operative procedure, surgical site, and laterality Entry 1 Procedure(s) CHOLECYSTECTOMY Patient Identity Birthday, Blood Band, LAPAROSCOPIC W/ Verified (select at ID Band Check, Patient CHOLANGI(.) least 2): Participation Consents / H and P Anesthesia Consent, Operative Site N/A Verified H&P, Surgery/Procedure Marking Verified Consent, Transfusion Consent Surgical Site Yes Laterality Verified n/a Verified Procedure Verified Yes Correct Patient Yes Position Verified Availability Equipment, Medication, Prep Dry Yes Verified (If X-ray Applicable) PreOp Antibiotic Yes Time Out Domenico Loo MD, Gower Given Participants Jose FERRIS, Manuel SALCIDO, Maged Pulido Laura C Time Out Complete 11/09/24 13:22:00 Outcomes Met? Yes Last Modified By: Arianna Jackson RN 11/09/24 13:56:16 Post-Care Text: The patient is free from signs and symptoms of injury caused by extraneous objects Allergy Information FT Pre-Care Text: Verifies allergies Entry 1 Allergies Reviewed? Yes Allergies Reviewed Self/Patient With Outcomes Met? Yes Last Modified By: Arianna Jackson RN 11/09/24 13:56:21 Post-Care Text: The patient received appropriate medication(s) safely administered during the perioperative period Surgical Procedures FT Entry 1 Procedure Description Procedure CHOLECYSTECTOMY Modifiers . LAPAROSCOPIC W/ CHOLANGIOGRAM Surgeon Description LAPAROSCOPIC CHOLECYSTECTOMY, INTRAOPERATIVE TAP BLOCK Primary Procedure Yes Primary Surgeon Domenico Loo MD Start 11/09/24 13:24:00 Stop 11/09/24 16:06:00 Anesthesia Type General Surgical Service General Wound Class 2 - Clean-Contaminated Last Modified By: Arianna Jackson RN 11/09/24 16:06:44 General Case Data FT Pre-Care Text: Classifies surgical wound, implements aseptic technique, initiates traffic control Entry 1 Case Information OR OR 4 FT Case Level Level 3 Wound Class 2 - Clean-Contaminated Specialty General ASA Class 3 Preop Diagnosis ACUTE CHOLECYSTITIS Postop Same As Preop Yes Postop Diagnosis ACUTE CHOLECYSTITIS Outcomes Met? Yes Last Modified By: Manuel SALCIDO, Arianna Chaudhry Marla 11/09/24 14:07:26 Post-C (more content not included)... Normal [facility] ABO/Rh History Checkon 11-10 ABO/Rh History Check Type verified by second s Normal [facility] Comment on above: Performed By: #### 1 [id number] #### [facility] [address] [place] [address] ABO/Rh Retypeon 11-10-2024 ABO/Rh Retype Interp Positive Invalid Interpretation Code [facility] Comment on above: Performed By: #### 1 [id number] #### [facility] [address] [place] [address] BLOOD BANKOrdered By: Jordyn Heck on 11-10-2024 ABO/Rh Retype Interp Positive Invalid Interpretation Code [facility] [place] Subsection BMPon 11-10-2024 Anion gap [Moles/Vol] 12 mmol/L Normal 6-16 [facility] Comment on above: Performed By: #### 2 [id number] #### [facility] [address] [place] [address] Calcium [Mass/Vol] 8.3 mg/dL Low 8.9-11.1 [facility] Comment on above: Performed By: #### 2 [id number] #### [facility] [address] [place] [address] Chloride [Moles/Vol] 101 mmol/L Normal 101-111 [facility] Comment on above: Performed By: #### 2 [id number] #### [facility] [address] [place] [address] CO2 [Moles/Vol] 24 mmol/L Normal 21-31 [facility] Comment on above: Performed By: #### 2 [id number] #### [facility] [address] [place] [address] Creatinine [Mass/Vol] 1.2 mg/dL Normal 0.5-1.3 [facility] Comment on above: Performed By: #### 2 [id number] #### [facility] [address] [place] [address] Glucose [Mass/Vol] 245 mg/dL High 55-199 [facility] Comment on above: Performed By: #### 2 [id number] #### [facility] [address] [place] [address] Potassium [Moles/Vol] 3.9 mmol/L Normal 3.5-5.3 [facility] Comment on above: Performed By: #### 2 [id number] #### [facility] [address] [place] [address] Sodium [Moles/Vol] 133 mmol/L Low 135-145 [facility] Comment on above: Performed By: #### 2 [id number] #### [facility] [address] [place] [address] Urea nitrogen [Mass/Vol] 35 mg/dL High 5-21 [facility] Comment on above: Performed By: #### 2 [id number] #### [facility] [address] [place] [address] Urea nitrogen/Creatinine [Mass ratio] 29 No Units High 10-20 [facility] Comment on above: Performed By: #### 2 [id number] #### [facility] [address] [place] [address] CBC w/ Auto Diffon 5 Basophils/100 WBC (Bld) 0.1 % Normal 0.0-2.0 [facility] Comment on above: Performed By: #### 2 [id number] #### [facility] [address] [place] [address] Basophils/Leukocytes Auto (Bld) [Pure # fraction] 0.0 E9/L Normal 0.0-0.2 [facility] Comment on above: Performed By: #### 2 [id number] #### [facility] [address] [place] [address] Eosinophils (Bld) [#/Vol] 0.0 E9/L Normal 0.0-0.5 [facility] Comment on above: Performed By: #### 2 [id number] #### [facility] [address] [place] [address] Eosinophils/100 WBC (Bld) 0.0 % Normal 0.0-8.0 [facility] Comment on above: Performed By: #### 2 [id number] #### [facility] [address] [place] [address] Erythrocyte distribution width (RBC) [Ratio] 13.7 % Normal 10.9-14.2 [facility] Comment on above: Performed By: #### 2 [id number] #### [facility] [address] [place] [address] Hematocrit (Bld) [Volume fraction] 30.5 % Low 34.0-46.0 [facility] Comment on above: Performed By: #### 2 [id number] #### [facility] [address] [place] [address] Hemoglobin (Bld) [Mass/Vol] 10.1 g/dL Low 12.0-16.0 [facility] Comment on above: Performed By: #### 2 [id number] #### [facility] [address] [place] [address] Lymphocytes (Bld) [#/Vol] 0.5 E9/L Low 1.0-4.0 [facility] Comment on above: Performed By: #### 2 [id number] #### [facility] [address] [place] [address] Lymphocytes/100 WBC (Bld) 3.9 % Low 14.0-50.0 [facility] Comment on above: Performed By: #### 2 [id number] #### [facility] [address] [place] [address] MCH (RBC) [Entitic mass] 30.1 pg Normal 27.0-34.0 [facility] Comment on above: Performed By: #### 2 [id number] #### [facility] [address] [place] [address] MCHC (RBC) [Mass/Vol] 33.2 g/dL Normal 31.4-36.0 [facility] Comment on above: Performed By: #### 2 [id number] #### [facility] [address] [place] [address] MCV (RBC) [Entitic vol] 90.9 fL Normal 80.0-100.0 [facility] Comment on above: Performed By: #### 2 [id number] #### [facility] [address] [place] [address] Monocytes (Bld) [#/Vol] 0.6 E9/L Normal 0.2-1.0 [facility] Comment on above: Performed By: #### 2 [id number] #### [facility] [address] [place] [address] Neutrophils (Bld) [#/Vol] 11.4 E9/L High 2.0-7.5 [facility] Comment on above: Performed By: #### 2 [id number] #### [facility] [address] [place] [address] Neutrophils/100 WBC (Bld) 90.9 % High 36.0-75.0 [facility] Comment on above: Performed By: #### 2 [id number] #### [facility] [address] [place] [address] Platelet mean volume (Bld) [Entitic vol] 9.5 fL Normal 6.4-10.8 [facility] Comment on above: Performed By: #### 2 [id number] #### [facility] [address] [place] [address] Platelets (Bld) [#/Vol] 151.0 E9/L Normal 150.0-500.0 [facility] Comment on above: Performed By: #### 2 [id number] #### [facility] [address] [place] [address] RBC (Bld) [#/Vol] 3.4 E12/L Low 4.3-5.9 [facility] Comment on above: Performed By: #### 2 [id number] #### [facility] [address] [place] [address] WBC corrected for nucl RBC Auto (Bld) [#/Vol] 12.5 E9/L High 4.0-11.0 [facility] Comment on above: Performed By: #### 2 [id number] #### [facility] [address] [place] [address] CHEMISTRYOrdered By: Lab ROP User on 11-10-2024 Glucose [Mass/Vol] 248 mg/dL High 55 - 99 mg/dL [facility] [place] Subsection Comment on above: Result Comment: Maris FUENTES POC Username CLARISSA COOPER Invalid Interpretation Code [facility] [place] Subsection Sodium [Moles/Vol] 458056809958 mmol/L Invalid Interpretation Code [facility] [place] Subsection Sodium [Moles/Vol] 385834715 mmol/L Invalid Interpretation Code [facility] [place] Subsection Glucose [Mass/Vol] 232 mg/dL High 55 - 99 mg/dL [facility] [place] Subsection Comment on above: Result Comment: Maris FUENTES POC Username CLARISSA COOPER Invalid Interpretation Code [facility] [place] Subsection Sodium [Moles/Vol] [id number] mmol/L Invalid Interpretation Code [facility] [place] Subsection Sodium [Moles/Vol] 341310896 mmol/L Invalid Interpretation Code [facility] [place] Subsection CHEMISTRYOrdered By: SYSTEM SYSTEM on 11-10-2024 Albumin [Mass/Vol] 3.4 g/dL Normal 3.3 - 5.0 gm/dL [facility] Albumin/Globulin [Mass ratio] 1.4 {ratio} Normal 1.1 - 2.2 [facility] ALP [Catalytic activity/Vol] 57 [iU]/d Normal 21 - 98 Int._Unit/L [facility] ALT No additional P-5'-P [Catalytic activity/Vol] 69 [iU]/d High 6 - 46 Int._Unit/L [facility] Anion gap [Moles/Vol] 12 mmol/L Normal 6 - 16 mEq/L R emisol Chem AST [Catalytic activity/Vol] 84 [iU]/d High 5 - 43 Int._Unit/L [facility] Bilirubin [Mass/Vol] 1.0 mg/dL Normal 0.0 - 1 .1 mg/dL [facility] Bilirubin.direct [Mass/Vol] 0.3 mg/dL Normal 0.0 - 0.4 mg/dL [facility] Bilirubin.indirect [Mass or moles/Vol] 0.7 mg/dL Normal 0.1 - 0.9 mg/dL [facility] Calcium [Mass/Vol] 8.3 mg/dL Low 8.9 - 11. 1 mg/dL [facility] Chloride [Moles/Vol] 101 mmol/L Normal 101 - 1 11 mmol/L [facility] CO2 [Moles/Vol] 24 mmol/L Normal 21 - 31 mmol/L [facility] Creatinine [Mass/Vol] 1.2 mg/dL Normal 0.5 - 1.3 mg/dL [facility] eGFR 49 mL/min/1.73 m2 Low >=59mL/min /1 .73 m2 [facility] Globulin (S) [Mass/Vol] 2.5 g/dL Normal 1.4 - 4.0 gm/dL [facility] Glucose [Mass/Vol] 245 mg/dL High 55 - 199 mg/dL [facility] Potassium [Moles/Vol] 3.9 mmol/L Normal 3.5 - 5.3 mmol/L [facility] Protein [Mass/Vol] 5.9 g/dL Low 6.0 - 7.8 gm/dL [facility] Sodium [Moles/Vol] 133 mmol/L Low 135 - 145 mmol/L [facility] Urea nitrogen [Mass/Vol] 35 mg/dL High 5 - 21 mg/dL [facility] Urea nitrogen/Creatinine [Mass ratio] 29 mg/mg High 10 - 20 [facility] Capillary Glucose [facility] 10-20 Glucose [Mass/Vol] 248 mg/dL High 55-99 [facility] Comment on above: Result Comment: Maris madrid RN/ Performed By: #### 2 [id number] #### [facility] [address] [place] [address] Glucose [Mass/Vol] 232 mg/dL High 55-99 [facility] Comment on above: Result Comment: Maris madrid RN/MD Performed By: #### 2 [id number] #### [facility] [address] [place] [address] Discharge Note-Nursingon Discharge Note-Nursing Discharge Note-Nursing CIERA HAYES :1955 Visit Date:11/09/2024 Inpatient Discharge Instructions Your Care Team Admitting Physician - Domenico Loo MD Reason for Your Visit ACUTE CHOLECYSTITIS Your Diagnosis Acute cholecystitis Poorly controlled diabetes mellitus Acute post-operative pain Tests Performed ABO/Rh History Check -- Results Pending -- ABO/Rh Retype -- Results Pending -- Gallbladder US Please visit your patient portal for your results or contact your primary care physician. This Is Your Medications List acetaminophen (acetaminophen 325 mg Tab) amoxicillin-clavulana te (Augmentin 875 mg oral tablet) aspirin (aspirin 81 mg Oral EC Tab) atorvastatin (atorvastatin 40 mg Tab) cholecalciferol (Vitamin D3 1000 intl units (25 mcg) Tab) garlic (Garlic) lisinopril (lisinopril 40 mg Tab) metformin (metformin 1000 mg Tab) oxycodone (oxyCODONE 5 mg Tab) senna (senna 8.6 mg Tab) Procedure History Cholecystectomy (11/09/2024). Discharge Vitals Temperature (Axillary) 36.6 ???C Heart Rate (Monitored) 76 Respiratory Rate 18 Blood Pressure 109/66 Weight 110.5 kg What to do next Instructions From Your Doctor Event Name Event Result Pending Diagnostic Test Results Biopsy/pathology Discharge Instructions Tylenol and Motrin for mild to moderate pain, oxycodone for severe pain. No lifting heavier than 15 pounds for 3 weeks. No swimming, submerging, soaking until CALI drain is removed and incision is healed. You may shower if the wound is covered. New Follow Up Appointments after Discharge Follow Up with trauma clinic When: 11/16/2024 09:45 AM EST Comments: Call to schedule/confirm followup appointment Where: [address] [facility] [address], second floor, [address] [place] [address]- [phone] Follow Up with MARIETTA WASHINGTON CNP When: 11/15/2024 10:30 AM EST Where: [address] [address]- [phone] Medications What How Much When Why Instructions Next Dose New acetaminophen (acetaminophen 325 mg Tab) 3 Tablets By Mouth Every 6 hours New amoxicillin-clavulana te (Augmentin 875 mg oral tablet) 1 Tablets By Mouth Every 12 hours Duration: 4 Days Printed Prescription New oxycodone (oxyCODONE 5 mg Tab) 1 Tablets By Mouth Every 6 hours as needed for Pain 8-10 Acute cholecystitis Duration: 3 Days Printed Prescription New senna (senna 8.6 mg Tab) 1 Tablets By Mouth Once a day (at bedtime) as needed for as needed for constipation Duration: 10 Days Printed Prescription Unchanged aspirin (aspirin 81 mg Oral EC Tab) 1 Tablets By Mouth Every day Unchanged atorvastatin (atorvastatin 40 mg Tab) 1 Tablets By Mouth Every day Unchanged cholecalciferol (Vitamin D3 1000 intl units (25 mcg) Tab) 1 Tablets By Mouth Every day Unchanged garlic (Garlic) Unchanged lisinopril (lisinopril 40 mg Tab) 1 Tablets By Mouth Every day Unchanged metformin (metformin 1000 mg Tab) 1 Tablets By Mouth 2 times a day Test Results CBC BMP WBC: 12.5 E9/L High (11/10/24 06:12:00) Glucose Lvl: 245 mg/dL High (11/10/24 06:12:00) RBC: 3.4 E12/L Low (11/10/24 06:12:00) BUN: 35 mg/dL High (11/10/24 06:12:00) HGB: 10.1 gm/dL Low (11/10/24 06:12:00) Creatinine: 1.2 mg/dL (11/10/24 06:12:00) Hct: 30.5 % Low (11/10/24 06:12:00) BUN/Creat Ratio: 29 High (11/10/24 06:12:00) MCV: 90.9 fL (11/10/24 06:12:00) Sodium Lvl: 133 mmol/L Low (11/10/24 06:12:00) MCH: 30.1 pg (11/10/24 06:12:00) Potassium Lvl: 3.9 mmol/L (11/10/24 06:12:00) MCHC: 33.2 gm/dL (11/10/24 06:12:00) Chloride: 101 mmol/L (11/10/24 06:12:00) RDW: 13.7 % (11/10/24 06:12:00) CO2: 24 mmol/L (11/10/24 06:12:00) Platelet: 151 E9/L (11/10/24 06:12:00) AGAP: 12 mEq/L (11/10/24 06:12:00) MPV: 9.5 fL (11/10/24 06:12:00) Calcium Lvl: 8.3 mg/dL Low (11/10/24 06:12:00) Allergies No Known Allergies Education Materials Carbohydrate Counting for Diabetes Mellitus, Adult Carbohydrate counting is a method of keeping track of how many carbohydrates you eat. Eating carbohydrates increases the amount of sugar (glucose) in the blood. Counting how many carbohydrates you eat improves how well you manage your blood glucose. This, in turn, helps you manage your diabetes. Carbohydrates are measured in grams (g) per serving. It is important to know how many carbohydrates (in grams or by serving size) you can have in each meal. This is different for every person. A dietitian can help you make a meal plan and calculate how many carbohydrates you should have at each meal and snack. What foods contain carbohydrates? Carbohydrates are found in the following foods: ??? Grains, such as breads and cereals. ??? Dried beans and soy products. ??? Starchy vegetables, such as potatoes, peas, and corn. ??? Fruit and fruit juices. ??? Milk and yogurt. ??? Sweets and snack foods, such as cake, cookies, candy, chips, and soft drinks. How do I co (more content not included)... Normal [facility] Discharge Note-Nursing Discharge Note-Nursing CIERA HAYES :1955 Visit Date:11/09/2024 Inpatient Discharge Instructions Your Care Team Admitting Physician - Domenico Loo MD Reason for Your Visit ACUTE CHOLECYSTITIS Your Diagnosis Acute cholecystitis Poorly controlled diabetes mellitus Acute post-operative pain Tests Performed ABO/Rh History Check -- Results Pending -- ABO/Rh Retype -- Results Pending -- Gallbladder US Please visit your patient portal for your results or contact your primary care physician. This Is Your Medications List acetaminophen (acetaminophen 325 mg Tab) amoxicillin-clavulana te (Augmentin 875 mg oral tablet) aspirin (aspirin 81 mg Oral EC Tab) atorvastatin (atorvastatin 40 mg Tab) cholecalciferol (Vitamin D3 1000 intl units (25 mcg) Tab) garlic (Garlic) lisinopril (lisinopril 40 mg Tab) metformin (metformin 1000 mg Tab) oxycodone (oxyCODONE 5 mg Tab) senna (senna 8.6 mg Tab) Procedure History Cholecystectomy (11/09/2024). Discharge Vitals Temperature (Axillary) 36.6 ???C Heart Rate (Monitored) 76 Respiratory Rate 18 Blood Pressure 109/66 Weight 110.5 kg What to do next Instructions From Your Doctor Event Name Event Result Pending Diagnostic Test Results Biopsy/pathology Discharge Instructions Tylenol and Motrin for mild to moderate pain, oxycodone for severe pain. No lifting heavier than 15 pounds for 3 weeks. No swimming, submerging, soaking until CALI drain is removed and incision is healed. You may shower if the wound is covered. New Follow Up Appointments after Discharge Follow Up with trauma clinic When: 11/16/2024 09:45 AM EST Comments: Call to schedule/confirm followup appointment Where: [address] [place] [address] [address], second floor, [address] [place] [address]- [phone] Follow Up with MARIETTA WASHINGTON CNP When: 11/15/2024 10:30 AM EST Where: [address] [place] [address]- [phone] Medications What How Much When Why Instructions Next Dose New acetaminophen (acetaminophen 325 mg Tab) 3 Tablets By Mouth Every 6 hours New amoxicillin-clavulana te (Augmentin 875 mg oral tablet) 1 Tablets By Mouth Every 12 hours Duration: 4 Days Printed Prescription New oxycodone (oxyCODONE 5 mg Tab) 1 Tablets By Mouth Every 6 hours as needed for Pain 8-10 Acute cholecystitis Duration: 3 Days Printed Prescription New senna (senna 8.6 mg Tab) 1 Tablets By Mouth Once a day (at bedtime) as needed for as needed for constipation Duration: 10 Days Printed Prescription Unchanged aspirin (aspirin 81 mg Oral EC Tab) 1 Tablets By Mouth Every day Unchanged atorvastatin (atorvastatin 40 mg Tab) 1 Tablets By Mouth Every day Unchanged cholecalciferol (Vitamin D3 1000 intl units (25 mcg) Tab) 1 Tablets By Mouth Every day Unchanged garlic (Garlic) Unchanged lisinopril (lisinopril 40 mg Tab) 1 Tablets By Mouth Every day Unchanged metformin (metformin 1000 mg Tab) 1 Tablets By Mouth 2 times a day Test Results CBC BMP WBC: 12.5 E9/L High (11/10/24 06:12:00) Glucose Lvl: 245 mg/dL High (11/10/24 06:12:00) RBC: 3.4 E12/L Low (11/10/24 06:12:00) BUN: 35 mg/dL High (11/10/24 06:12:00) HGB: 10.1 gm/dL Low (11/10/24 06:12:00) Creatinine: 1.2 mg/dL (11/10/24 06:12:00) Hct: 30.5 % Low (11/10/24 06:12:00) BUN/Creat Ratio: 29 High (11/10/24 06:12:00) MCV: 90.9 fL (11/10/24 06:12:00) Sodium Lvl: 133 mmol/L Low (11/10/24 06:12:00) MCH: 30.1 pg (11/10/24 06:12:00) Potassium Lvl: 3.9 mmol/L (11/10/24 06:12:00) MCHC: 33.2 gm/dL (11/10/24 06:12:00) Chloride: 101 mmol/L (11/10/24 06:12:00) RDW: 13.7 % (11/10/24 06:12:00) CO2: 24 mmol/L (11/10/24 06:12:00) Platelet: 151 E9/L (11/10/24 06:12:00) AGAP: 12 mEq/L (11/10/24 06:12:00) MPV: 9.5 fL (11/10/24 06:12:00) Calcium Lvl: 8.3 mg/dL Low (11/10/24 06:12:00) Allergies No Known Allergies Education Materials Carbohydrate Counting for Diabetes Mellitus, Adult Carbohydrate counting is a method of keeping track of how many carbohydrates you eat. Eating carbohydrates increases the amount of sugar (glucose) in the blood. Counting how many carbohydrates you eat improves how well you manage your blood glucose. This, in turn, helps you manage your diabetes. Carbohydrates are measured in grams (g) per serving. It is important to know how many carbohydrates (in grams or by serving size) you can have in each meal. This is different for every person. A dietitian can help you make a meal plan and calculate how many carbohydrates you should have at each meal and snack. What foods contain carbohydrates? Carbohydrates are found in the following foods: ??? Grains, such as breads and cereals. ??? Dried beans and soy products. ??? Starchy vegetables, such as potatoes, peas, and corn. ??? Fruit and fruit juices. ??? Milk and yogurt. ??? Sweets and snack foods, such as cake, cookies, candy, chips, and soft drinks. How do I co (more content not included)... Normal [facility] Discharge Note-Nursing Discharge Note-Nursing CIERA HAYES :1955 Visit Date:11/09/2024 Inpatient Discharge Instructions Your Care Team Admitting Physician - Domenico Loo MD Reason for Your Visit ACUTE CHOLECYSTITIS Your Diagnosis Acute cholecystitis Poorly controlled diabetes mellitus Acute post-operative pain Tests Performed ABO/Rh History Check -- Results Pending -- ABO/Rh Retype -- Results Pending -- Gallbladder US Please visit your patient portal for your results or contact your primary care physician. This Is Your Medications List acetaminophen (acetaminophen 325 mg Tab) amoxicillin-clavulana te (Augmentin 875 mg oral tablet) aspirin (aspirin 81 mg Oral EC Tab) atorvastatin (atorvastatin 40 mg Tab) cholecalciferol (Vitamin D3 1000 intl units (25 mcg) Tab) garlic (Garlic) lisinopril (lisinopril 40 mg Tab) metformin (metformin 1000 mg Tab) oxycodone (oxyCODONE 5 mg Tab) senna (senna 8.6 mg Tab) Procedure History Cholecystectomy (11/09/2024). Discharge Vitals Temperature (Axillary) 36.6 ???C Heart Rate (Monitored) 76 Respiratory Rate 18 Blood Pressure 109/66 Weight 110.5 kg What to do next Instructions From Your Doctor Event Name Event Result Pending Diagnostic Test Results Biopsy/pathology Discharge Instructions Tylenol and Motrin for mild to moderate pain, oxycodone for severe pain. No lifting heavier than 15 pounds for 3 weeks. No swimming, submerging, soaking until CALI drain is removed and incision is healed. You may shower if the wound is covered. New Follow Up Appointments after Discharge Follow Up with trauma clinic When: 11/16/2024 09:45 AM EST Comments: Call to schedule/confirm followup appointment Where: [address] [place] [address] 3, second floor, [address] [place] [address]- [phone] Follow Up with MARIETTA WASHINGTON CNP When: 11/15/2024 10:30 AM EST Where: [address] [place] [address]- [phone] Medications What How Much When Why Instructions Next Dose New acetaminophen (acetaminophen 325 mg Tab) 3 Tablets By Mouth Every 6 hours Resume as needed every 6 hours for pain to keep pain under control New amoxicillin-clavulana te (Augmentin 875 mg oral tablet) 1 Tablets By Mouth Every 12 hours Duration: 4 Days Printed Prescription 9pm New oxycodone (oxyCODONE 5 mg Tab) 1 Tablets By Mouth Every 6 hours as needed for Pain 8-10 Acute cholecystitis Duration: 3 Days Printed Prescription Next dose due after 7pm New senna (senna 8.6 mg Tab) 1 Tablets By Mouth Once a day (at bedtime) as needed for as needed for constipation Duration: 10 Days Printed Prescription 9pm Unchanged aspirin (aspirin 81 mg Oral EC Tab) 1 Tablets By Mouth Every day 11/11 @9am Unchanged atorvastatin (atorvastatin 40 mg Tab) 1 Tablets By Mouth Every day 11/11 @9am Unchanged cholecalciferol (Vitamin D3 1000 intl units (25 mcg) Tab) 1 Tablets By Mouth Every day 11/11 @9am Unchanged garlic (Garlic) resume Unchanged lisinopril (lisinopril 40 mg Tab) 1 Tablets By Mouth Every day 11/11 @9am Unchanged metformin (metformin 1000 mg Tab) 1 Tablets By Mouth 2 times a day 9pm Test Results CBC BMP WBC: 12.5 E9/L High (11/10/24 06:12:00) Glucose Lvl: 245 mg/dL High (11/10/24 06:12:00) RBC: 3.4 E12/L Low (11/10/24 06:12:00) BUN: 35 mg/dL High (11/10/24 06:12:00) HGB: 10.1 gm/dL Low (11/10/24 06:12:00) Creatinine: 1.2 mg/dL (11/10/24 06:12:00) Hct: 30.5 % Low (11/10/24 06:12:00) BUN/Creat Ratio: 29 High (11/10/24 06:12:00) MCV: 90.9 fL (11/10/24 06:12:00) Sodium Lvl: 133 mmol/L Low (11/10/24 06:12:00) MCH: 30.1 pg (11/10/24 06:12:00) Potassium Lvl: 3.9 mmol/L (11/10/24 06:12:00) MCHC: 33.2 gm/dL (11/10/24 06:12:00) Chloride: 101 mmol/L (11/10/24 06:12:00) RDW: 13.7 % (11/10/24 06:12:00) CO2: 24 mmol/L (11/10/24 06:12:00) Platelet: 151 E9/L (11/10/24 06:12:00) AGAP: 12 mEq/L (11/10/24 06:12:00) MPV: 9.5 fL (11/10/24 06:12:00) Calcium Lvl: 8.3 mg/dL Low (11/10/24 06:12:00) Allergies No Known Allergies Education Materials Carbohydrate Counting for Diabetes Mellitus, Adult Carbohydrate counting is a method of keeping track of how many carbohydrates you eat. Eating carbohydrates increases the amount of sugar (glucose) in the blood. Counting how many carbohydrates you eat improves how well you manage your blood glucose. This, in turn, helps you manage your diabetes. Carbohydrates are measured in grams (g) per serving. It is important to know how many carbohydrates (in grams or by serving size) you can have in each meal. This is different for every person. A dietitian can help you make a meal plan and calculate how many carbohydrates you should have at each meal and snack. What foods contain carbohydrates? Carbohydrates are found in the following foods: ??? Grains, such as breads and cereals. ??? Dried beans and soy products. ??? Starchy vegetables, such as potatoes, peas, and corn. ??? (more content not included)... Normal [facility] HEMATOLOGYOrdered By: SYSTEM SYSTEM on 11-10-2024 Basophils/100 WBC (Bld) 0.1 % Normal 0.0 - 2.0 % Remisol Heme Basophils/Leukocytes Auto (Bld) [Pure # fraction] 0.0 E9/L Normal 0.0 - 0.2 E9/L Remisol Heme Eosinophils (Bld) [#/Vol] 0.0 E9/L Normal 0.0 - 0.5 E9/L Remisol Heme Eosinophils/100 WBC (Bld) 0.0 % Normal 0.0 - 8.0 % Remisol Heme Erythrocyte distribution width (RBC) [Ratio] 13.7 % Normal 10.9 - 14.2 % Remisol Heme Hematocrit (Bld) [Volume fraction] 30.5 % Low 34.0 - 46.0 % Remisol Heme Hemoglobin (Bld) [Mass/Vol] 10.1 g/dL Low 12.0 - 16.0 gm/dL Remisol Heme Lymphocytes (Bld) [#/Vol] 0.5 E9/L Low 1.0 - 4.0 E9/L Remisol Heme Lymphocytes/100 WBC (Bld) 3.9 % Low 14.0 - 50.0 % Remisol Heme MCH (RBC) [Entitic mass] 30.1 pg Normal 27.0 - 34.0 pg Remisol Heme MCHC (RBC) [Mass/Vol] 33.2 g/dL Normal 31.4 - 36.0 gm/dL Remisol Heme MCV (RBC) [Entitic vol] 90.9 fL Normal 80.0 - 100.0 fL Remisol Heme Monocytes (Bld) [#/Vol] 0.6 E9/L Normal 0.2 - 1.0 E9/L Remisol Heme Monocytes/100 WBC (Bld) 5.1 % Normal 4.0 - 14.0 % Remisol Heme Neutrophils (Bld) [#/Vol] 11.4 E9/L High 2.0 - 7.5 E9/L Remisol Heme Neutrophils/100 WBC (Bld) 90.9 % High 36.0 - 75.0 % Remisol Heme Platelet mean volume (Bld) [Entitic vol] 9.5 fL Normal 6.4 - 10.8 fL Remisol Heme Platelets (Bld) [#/Vol] 151.0 E9/L Normal 150.0 - 500.0 E9/L Remisol Heme RBC (Bld) [#/Vol] 3.4 E12/L Low 4.3 - 5.9 E12/L Remisol Heme WBC corrected for nucl RBC Auto (Bld) [#/Vol] 12.5 E9/L High 4.0 - 11.0 E9/L Remisol Heme Hep Func Panelon 11-10-2024 Albumin [Mass/Vol] 3.4 g/dL Normal 3.3-5.0 [facility] Comment on above: Performed By: #### 2 [id number] #### [facility] [address] [place] [address] Albumin/Globulin (S) [Mass conc ratio] 1.4 Normal 1.1-2.2 [facility] Comment on above: Performed By: #### 2 [id number] #### [facility] [address] [place] [address] ALP [Catalytic activity/Vol] 57 Int._Unit/L Normal 21-98 [facility] Comment on above: Performed By: #### 2 [id number] #### [facility] [address] [place] [address] ALT No additional P-5'-P [Catalytic activity/Vol] 69 Int._Unit/L High 6-46 [facility] Comment on above: Performed By: #### 2 [id number] #### [facility] [address] [place] [address] AST [Catalytic activity/Vol] 84 Int._Unit/L High 5-43 [facility] Comment on above: Performed By: #### 2 [id number] #### [facility] [address] [place] [address] Bilirubin [Mass/Vol] 1.0 mg/dL Normal 0.0-1.1 [facility] Comment on above: Performed By: #### 2 [id number] #### [facility] [address] [place] [address] Bilirubin.direct [Mass/Vol] 0.3 mg/dL Normal 0.0-0.4 [facility] Comment on above: Performed By: #### 2 [id number] #### [facility] [address] [place] [address] Bilirubin.indirect [Mass or moles/Vol] 0.7 mg/dL Normal 0.1-0.9 [facility] Comment on above: Performed By: #### 2 [id number] #### [facility] [address] [place] [address] Globulin (S) [Mass/Vol] 2.5 g/dL Normal 1.4-4.0 [facility] Comment on above: Performed By: #### 2 [id number] #### [facility] [address] [place] [address] Protein [Mass/Vol] 5.9 g/dL Low 6.0-7.8 [facility] Comment on above: Performed By: #### 2 [id number] #### [facility] [address] [place] [address] Inpatient Clinical Summaryon 11-10-2024 Inpatient Clinical Summary Inpatient Clinical Summary [address] [address] Clinical Summary Person Information: Name: CIERA HAYES Age: 69 Years : 1955 Sex: Female PCP: MARIETTA WASHINGTON CNP Marital Status: Race: White Ethnicity: Non- or Language: Faroese N: [id number] Visit Id: Visit Reason: ACUTE CHOLECYSTITIS Speciality: Acuity: Enc Type: Observation Med Service: Surgery Arrival: 11/09/2024 03:12:02 Discharge: Dispo Type: Address: [place] [address] [id number] Provider Notes: Diagnosis: 2:Poorly controlled diabetes mellitus; 3:Acute post-operative pain Problems No Problems Documented Smoking Status: Former Smoker Functional Status: Sensory Deficits: History of Falls: Mobility Assistance Prior to Admission: ADLs: Independent Current Level of Assistance for Self-Care/Mobility: Cognitive Status: Allergies No Known Allergies Measurements: Height: 154.94 cm Weight: 110.5 kg Blood Pressure: 109 mmHg / 66 mmHg BMI: 44.53 kg/m2 Procedures Cholecystectomy (11/09/2024) Immunizations No Immunizations Documented This Visit Final Med List: acetaminophen (acetaminophen 325 mg Tab) 3 Tablets By Mouth every 6 hours. amoxicillin-clavulana te (Augmentin 875 mg oral tablet) 1 Tablets By Mouth every 12 hours for 4 Days. Refills: 0. aspirin (aspirin 81 mg Oral EC Tab) 1 Tablets By Mouth every day. atorvastatin (atorvastatin 40 mg Tab) 1 Tablets By Mouth every day. cholecalciferol (Vitamin D3 1000 intl units (25 mcg) Tab) 1 Tablets By Mouth every day. garlic (Garlic) lisinopril (lisinopril 40 mg Tab) 1 Tablets By Mouth every day. metformin (metformin 1000 mg Tab) 1 Tablets By Mouth 2 times a day. oxycodone (oxyCODONE 5 mg Tab) 1 Tablets By Mouth every 6 hours as needed Pain 8-10 for 3 Days. Refills: 0. senna (senna 8.6 mg Tab) 1 Tablets By Mouth once a day (at bedtime) as needed as needed for constipation for 10 Days. Refills: 0. Care Team Members: Attending Physician: Domenico Loo MD Consulting Physician: Referring Physician: Follow up: With: Address: When: trauma clinic [address] [place] [address] 3, second floor, [address] [place] [address] 11/16/2024 9:45 AM Comments: Call to schedule/confirm followup appointment With: Address: When: MARIETTA WASHINGTON CNP [address] [phone] Within 7 to 10 days Comments: Call to schedule appointment for hospital follow up and high blood sugars Patient Education Information: Carbohydrate Counting for Diabetes Mellitus, Adult; Hyperglycemia, [id number]; Mckinnon - JacksonPratt Drainage Tube Care(CUSTOM); Minimally Invasive Cholecystectomy, Care After, [id number]; Cholecystitis Normal [facility] Inpatient Patient Summaryon 11-10-2024 Inpatient Patient Summary Inpatient Patient Summary [address] [address] Patient Discharge Instructions PERSON INFORMATION Name: CIERA HAYES Date of : 1955 Current Date: 11/10/2024 13:52:42 PHYSICIANS Admitting Physician: Domenico Loo MD Primary Care Physician: MARIETTA WASHINGTON CNP PCP Phone Number: [phone] Comment: Discharge Diagnosis: 2:Poorly controlled diabetes mellitus; 3:Acute post-operative pain Condition at Discharge: Improved CIERA HAYES has been given the following list of follow-up instructions, prescriptions, and patient education materials: PATIENT FOLLOW-UP INFORMATION Diet: Discharge Activity: Discharge Restrictions: Wound Care Instructions: Remove Your Dressing In Days Call Your Doctor For: IF UNABLE TO CONTACT YOUR PHYSICIAN AND YOU FEEL IT IS AN EMERGENCY, GO TO THE NEAREST EMERGENCY ROOM OR CALL 911 Home Treatment: Devices/Equipment: None Special Services: Additional Instructions: Tylenol and Motrin for mild to moderate pain, oxycodone for severe pain. No lifting heavier than 15 pounds for 3 weeks. No swimming, submerging, soaking until CALI drain is removed and incision is healed. You may shower if the wound is covered. Primary Care Physician to provide the following pending test results: Biopsy/pathology Follow up: With: Address: When: trauma clinic [address] [place] [address] 3, second floor, [address] [place] [address] 11/16/2024 9:45 AM Comments: Call to schedule/confirm followup appointment With: Address: When: MARIETTA WASHINGTON CNP [address] [place] [phone] Within 7 to 10 days Comments: Call to schedule appointment for hospital follow up and high blood sugars In the event that this physician does not participate in your insurance network, please consult with your insurance company to find a nearby participating provider. Comment: ABIGAIL Caba ELLEN S, have received the attached patient education materials/instruction s and have verbalized understanding: Patient Signature Date Clinican/Nurse Signature Date HERE ARE THE MEDICATION CHANGES THAT OCCURRED DURING YOUR HOSPITAL STAY New Medications Printed Prescriptions amoxicillin-clavulana te (Augmentin 875 mg oral tablet) 1 Tablets By Mouth every 12 hours for 4 Days. Refills: 0. Last Dose: ____Next Dose: ____ oxycodone (oxyCODONE 5 mg Tab) 1 Tablets By Mouth every 6 hours as needed Pain 8-10 for 3 Days. Refills: 0. Last Dose: ____Next Dose: ____ senna (senna 8.6 mg Tab) 1 Tablets By Mouth once a day (at bedtime) as needed as needed for constipation for 10 Days. Refills: 0. Last Dose: ____Next Dose: ____ Other Medications acetaminophen (acetaminophen 325 mg Tab) 3 Tablets By Mouth every 6 hours. Last Dose: ____Next Dose: ____ Medications to Continue with No Changes Other Medications aspirin (aspirin 81 mg Oral EC Tab) 1 Tablets By Mouth every day. Last Dose: ____Next Dose: ____ atorvastatin (atorvastatin 40 mg Tab) 1 Tablets By Mouth every day. Last Dose: ____Next Dose: ____ cholecalciferol (Vitamin D3 1000 intl units (25 mcg) Tab) 1 Tablets By Mouth every day. Last Dose: ____Next Dose: ____ garlic (Garlic) Last Dose: ____Next Dose: ____ lisinopril (lisinopril 40 mg Tab) 1 Tablets By Mouth every day. Last Dose: ____Next Dose: ____ metformin (metformin 1000 mg Tab) 1 Tablets By Mouth 2 times a day. Last Dose: ____Next Dose: ____ Comment: MEDICATION LIST PROVIDED FOR YOU IS A LIST OF YOUR CURRENT MEDICATIONS. PLEASE CARRY THIS WITH YOU AT ALL TIMES. acetaminophen (acetaminophen 325 mg Tab) 3 Tablets By Mouth every 6 hours. amoxicillin-clavulana te (Augmentin 875 mg oral tablet) 1 Tablets By Mouth every 12 hours for 4 Days. Refills: 0. aspirin (aspirin 81 mg Oral EC Tab) 1 Tablets By Mouth every day. atorvastatin (atorvastatin 40 mg Tab) 1 Tablets By Mouth every day. cholecalciferol (Vitamin D3 1000 intl units (25 mcg) Tab) 1 Tablets By Mouth every day. garlic (Garlic) lisinopril (lisinopril 40 mg Tab) 1 Tablets By Mouth every day. metformin (metformin 1000 mg Tab) 1 Tablets By Mouth 2 times a day. oxycodone (oxyCODONE 5 mg Tab) 1 Tablets By Mouth every 6 hours as needed Pain 8-10 for 3 Days. Refills: 0. senna (senna 8.6 mg Tab) 1 Tablets By Mouth once a day (at bedtime) as needed as needed for constipation for 10 Days. Refills: 0. Pharmacy Information: Comment: PATIENT EDUCATION INFORMATION Instructions: Carbohydrate Counting (more content not included)... [facility] Interdisciplinary Note - Bravo e Manageron 11-10-2024 Interdisciplinary Note - Machinist Interdisciplinary Note - Machinist CRM to room 309 Patient is awake, alert and oriented. Patient is from home with her spouse. Him or family will be her ride at [place]. Patient verified PCP, DME and insurance. Patient is an observation. She came in from [facility] for Acute Sandra. Patient declined DC needs for DME, HH or Paramed . She declined any concerns to return home. Patient is assigned to Trauma, CRM is awaiting updates. CRM provided contact info, white board updated. CRM following DC date TBD Per Dannielle patient is a possible DC Desat ordered, still pending Patient was put on RA at 1053 AM Does not require home O2 CRM did update her daughter in hospital that she is a possible DC today [facility] Comment on above: Result Comment: Elec tronically Signed By: Neha Keyes\.br\Date and Time Signed: 11/10/24 12:57 EST Interdisciplinary Note - Machinist Interdisciplinary Note - Machinist CRM to room 309 Patient is awake, alert and oriented. Patient is from home with her spouse. Him or family will be her ride at [place]. Patient verified PCP, DME and insurance. Patient is an observation. She came in from [facility] for Acute Sandra. Patient declined DC needs for DME, HH or Paramed . She declined any concerns to return home. Patient is assigned to Trauma, CRM is awaiting updates. CRM provided contact info, white board updated. CRM following DC date TBD [facility] Comment on above: Result Comment: Elec tronically Signed By: Neha Keyes\.br\Date and Time Signed: 11/10/24 09:41 EST Operative Reporton 5 Operative Report Operative Report [facility] [place]ative Report Date of Service: 11/09/24 Preop Diagnosis: Acute cholecystitis Postop Diagnosis: Acute gangrenous cholecystitis Procedure: laparoscopic cholecystectomy Surgeon:Domenico Loo MD Benefits Director: Bryant Stone PA-C Anesthesia: General endotracheal EBL: 20 mL Wound Class: Clean contaminated Drains: None Complications: None Specimens: Gallbladder Intraoperative Findings: Patchy areas of gangrene over the gallbladder, severely thickened peritoneum overlying the gallbladder, dense inflammatory reaction at the infundibulum Indications: CIERA HAYES is a 69 Years Female who was having abdominal pain the past 2 days. Her signs and symptoms were consistent with acute cholecystitis. The risks, benefits, and alternatives to laparoscopic cholecystectomy were explained to the patient who provided informed consent for the procedure. Operative Note: The patient was brought to the operating room and positioned on the operating table in a supine manner. SCDs were placed on bilateral lower extremities and pre-operative antibiotics were administered. General endotracheal anesthesia was induced. The patient was then prepped and draped in the usual sterile fashion. A time out was performed by the entire operating room team to confirm the correct patient, the correct site, and the correct procedure. An vision was made in the left upper quadrant and a Veress needle was introduced and pneumoperitoneum was achieved. A 5 mm Optiview trocar was then placed in the supra umbilical space, which was later upsized to a 12 mm trocar. Three additional 5 mm trocars were placed in the epigastrium and along the right upper quadrant under direct visualization. The patient was placed in reverse Trendelenburg position with the right side up. The right upper quadrant was inspected and there was noted to be murky fluid in the gallbladder fossa and around the liver. There were omental adhesions covering the gallbladder that were lysed with electrocautery. The gallbladder was tense so an aspiration needle was used to decompress the gallbladder. Once the gallbladder was able to be visualized there were multiple areas throughout the length of the gallbladder that appeared gangrenous. The peritoneum overlying the gallbladder was severely thickened as well. The gallbladder dome was grasped and elevated over the dome of the liver. The the peritoneum overlying the infundibulum was dissected with electrocautery. The infundibulum was retracted laterally and the peritoneum overlying the cystic duct and artery was dissected. Once the cystic duct and artery were identified, multiple endoclips were placed on the structures and were sharply divided. The gallbladder was then dissected off the liver with electrocautery the posterior wall of the gallbladder was adherently fused to the liver bed. During the retraction and dissection of the gallbladder multiple holes were made in the gallbladder due to its friable nature and there was bile spillage. The gallbladder fossa was then inspected for hemostasis and achieved through electrocautery the gallbladder was placed in an Endo Catch bag. The gallbladder fossa and right upper quadrant were copiously irrigated with normal saline until the aspirate was clear the clips on the cystic artery and duct were again visualized and found to be in good position there was raw surface oozing coming from the liver edge which was controlled with Brianne powder. A 15 Grenadian round CALI drain was inserted through the right most lateral port and placed into the gallbladder fossa. This was mainly done in case the cystic duct stump became necrotic, leading to a cystic duct leak. A bilateral tap block was then performed using a mixture of Marcaine, Exparel and injectable saline. The gallbladder was then removed through the supraumbilical 12 mm port site. Because of the thickened peritoneum on the gallbladder it was not easily compressible and the fascial defect had to be widened to allow for extraction. The fascial defect was closed with 0 Vicryl. The skin for this incision was closed with interrupted, 3-0 Vicryl deep dermal sutures. The rest of the skin incisions were closed with 4-0 Monocryl. Steri-Strips and a sterile surgical dressing were then applied over the incisions At the end of the case, all instrument and sponge counts were correct. General anesthesia was withdrawn and the patient was awoken and extubated. The patient was transferred to PACU in good condition. I was present for all parts of the procedure. Domenico Loo MD [facility] Comment on above: Result Comment: Elec tronically Signed By: Santana KING, Domenico Sky\.br\Date and Time Signed: 11/10/24 17:45 EST eGFRon 11-10-2024 eGFR 49 mL/min/1.73 m2 Low >=59 [facility] Comment on above: Performed By: #### 1 [id number] #### [facility] [address] [place] [id number] ABO/Rhon 11-09-2024 ABO/Rh Positive Invalid Interpretation Code [facility] Comment on above: Performed By: #### 2 [id number] #### [facility] [address] [place] [address] ABSCon 11-09-2024 ABSC Gel Interp Negative Normal [facility] Comment on above: Performed By: #### 1 [id number] #### [facility] [address] [place] [address] BLOOD BANKOrdered By: Gage Chan on 11-09-2024 ABO/Rh Interp Positive Invalid Interpretation Code [facility] [place] Subsection ABSC Gel Interp Negative (11/09/24 7:44 AM) Normal [facility] [place] BB Subsection BMPon 11-09-2024 Anion gap [Moles/Vol] 12 mmol/L Normal 6-16 [facility] Comment on above: Performed By: #### 2 [id number] #### [facility] [address] [place] [address] Calcium [Mass/Vol] 9.1 mg/dL Normal 8.9-11.1 [facility] Comment on above: Performed By: #### 2 [id number] #### [facility] [address] [place] [address] Chloride [Moles/Vol] 97 mmol/L Low 101-111 [facility] Comment on above: Performed By: #### 2 [id number] #### [facility] [address] [place] [address] CO2 [Moles/Vol] 27 mmol/L Normal 21-31 [facility] Comment on above: Performed By: #### 2 [id number] #### [facility] [address] [place] [address] Creatinine [Mass/Vol] 0.8 mg/dL Normal 0.5-1.3 [facility] Comment on above: Performed By: #### 2 [id number] #### [facility] [address] [place] [address] Glucose [Mass/Vol] 222 mg/dL High 55-199 [facility] Comment on above: Performed By: #### 2 [id number] #### [facility] [address] [place] [address] Potassium [Moles/Vol] 3.8 mmol/L Normal 3.5-5.3 [facility] Comment on above: Performed By: #### 2 [id number] #### [facility] [address] [place] [address] Sodium [Moles/Vol] 132 mmol/L Low 135-145 [facility] Comment on above: Performed By: #### 2 [id number] #### [facility] [address] [place] [address] Urea nitrogen [Mass/Vol] 21 mg/dL Normal 5-21 [facility] Comment on above: Performed By: #### 2 [id number] #### [facility] [address] [place] [address] Urea nitrogen/Creatinine [Mass ratio] 26 No Units High 10-20 [facility] Comment on above: Performed By: #### 2 [id number] #### [facility] [address] [place] [address] Blood Bank ID#on 11-09-2024 BBID# [id number] Invalid Interpretation Code [facility] Comment on above: Performed By: #### 1 [id number] #### [facility] [address] [place] [address] CBC w/ Auto Diffon 5 Band form neutrophils/100 WBC (Bld) 1.0 % Normal 0.0-6.0 [facility] Comment on above: Performed By: #### 2 [id number] #### [facility] [address] [place] [address] Basophils (Bld) [#/Vol] 0.0 E9/L Normal 0.0-0.2 [facility] Comment on above: Performed By: #### 2 [id number] #### [facility] [address] [place] [address] Eosinophils (Bld) [#/Vol] 0.0 E9/L Normal 0.0-0.5 [facility] Comment on above: Performed By: #### 2 [id number] #### [facility] [address] [place] [address] Eosinophils/100 WBC (Bld) 0.0 % Normal 0.0-8.0 [facility] Comment on above: Performed By: #### 2 [id number] #### [facility] [address] [place] [address] Lymphocytes (Bld) [#/Vol] 1.4 E9/L Normal 1.0-4.0 [facility] Comment on above: Performed By: #### 2 [id number] #### [facility] [address] [place] [address] Lymphocytes/100 WBC (Bld) 7.0 % Low 14.0-50.0 [facility] Comment on above: Performed By: #### 2 [id number] #### [facility] [address] [place] [address] Monocytes (Bld) [#/Vol] 0.6 E9/L Normal 0.2-1.0 [facility] Comment on above: Performed By: #### 2 [id number] #### [facility] [address] [place] [address] Neutrophils (Bld) [#/Vol] 18.1 E9/L Invalid Interpretation Code [facility] Comment on above: Performed By: #### 2 [id number] #### [facility] [address] [place] [address] Segmented neutrophils/100 WBC (Bld) 89.0 % High 36.0-75.0 [facility] Comment on above: Performed By: #### 2 [id number] #### [facility] [address] [place] [address] Erythrocyte distribution width (RBC) [Ratio] 13.6 % Normal 10.9-14.2 [facility] Comment on above: Performed By: #### 2 [id number] #### [facility] [address] [place] [address] Hematocrit (Bld) [Volume fraction] 36.0 % Normal 34.0-46.0 [facility] Comment on above: Performed By: #### 2 [id number] #### [facility] [address] [place] [address] Hemoglobin (Bld) [Mass/Vol] 12.4 g/dL Normal 12.0-16.0 [facility] Comment on above: Performed By: #### 2 [id number] #### [facility] [address] [place] [address] MCH (RBC) [Entitic mass] 30.4 pg Normal 27.0-34.0 [facility] Comment on above: Performed By: #### 2 [id number] #### [facility] [address] [place] [address] MCHC (RBC) [Mass/Vol] 34.6 g/dL Normal 31.4-36.0 [facility] Comment on above: Performed By: #### 2 [id number] #### [facility] [address] [place] [address] MCV (RBC) [Entitic vol] 87.9 fL Normal 80.0-100.0 [facility] Comment on above: Performed By: #### 2 [id number] #### [facility] [address] [place] [address] Platelet 168.0 E9/L Normal 150.0-500.0 [facility] Comment on above: Performed By: #### 2 [id number] #### [facility] [address] [place] [address] Platelet mean volume (Bld) [Entitic vol] 8.8 fL Normal 6.4-10.8 [facility] Comment on above: Performed By: #### 2 [id number] #### [facility] [address] [place] [address] RBC (Bld) [#/Vol] 4.1 E12/L Low 4.3-5.9 [facility] Comment on above: Performed By: #### 2 [id number] #### [facility] [address] [place] [address] WBC corrected for nucl RBC Auto (Bld) [#/Vol] 20.1 E9/L High 4.0-11.0 [facility] Comment on above: Performed By: #### 2 [id number] #### [facility] [address] [place] [address] CHEMISTRYOrdered By: Lab ROP User on 11-09-2024 Glucose [Mass/Vol] 266 mg/dL High 55 - 99 mg/dL [facility] [place] Comment on above: Result Comment: Maris madrid RN/ POC Username TAINA MOORE Invalid Interpretation Code [facility] [place] Subsection Sodium [Moles/Vol] 734456534841 mmol/L Invalid Interpretation Code [facility] [place] Subsection Sodium [Moles/Vol] 626163603 mmol/L Invalid Interpretation Code [facility] [place] Sub[place] CHEMISTRYOrdered By: SYSTEM SYSTEM on 11-09-2024 Albumin [Mass/Vol] 3.7 g/dL Normal 3.3 - 5.0 gm/dL [facility] Albumin/Globulin [Mass ratio] 1.2 {ratio} Normal 1.1 - 2.2 [facility] ALP [Catalytic activity/Vol] 63 [iU]/d Normal 21 - 98 Int._Unit/L [facility] ALT No additional P-5'-P [Catalytic activity/Vol] 44 [iU]/d Normal 6 - 46 Int._Unit/L [facility] Anion gap [Moles/Vol] 12 mmol/L Normal 6 - 16 mEq/L R em[facility] Chem AST [Catalytic activity/Vol] 45 [iU]/d High 5 - 43 Int._Unit/L [facility] Bilirubin [Mass/Vol] 2.0 mg/dL High 0.0 - 1 .1 mg/dL [facility] Bilirubin.direct [Mass/Vol] 0.7 mg/dL High 0.0 - 0.4 mg/dL [facility] Bilirubin.indirect [Mass or moles/Vol] 1.3 mg/dL High 0.1 - 0.9 mg/dL [facility] Calcium [Mass/Vol] 9.1 mg/dL Normal 8.9 - 11. 1 mg/dL [facility] Chloride [Moles/Vol] 97 mmol/L Low 101 - 1 11 mmol/L [facility] CO2 [Moles/Vol] 27 mmol/L Normal 21 - 31 mmol/L [facility] Creatinine [Mass/Vol] 0.8 mg/dL Normal 0.5 - 1.3 mg/dL [facility] eGFR 80 mL/min/1.73 m2 Normal >=59mL/min /1 .73 m2 [facility] Globulin (S) [Mass/Vol] 3.0 g/dL Normal 1.4 - 4.0 gm/dL [facility] Glucose [Mass/Vol] 222 mg/dL High 55 - 199 mg/dL [facility] Potassium [Moles/Vol] 3.8 mmol/L Normal 3.5 - 5.3 mmol/L [facility] Protein [Mass/Vol] 6.7 g/dL Normal 6.0 - 7.8 gm/dL [facility] Sodium [Moles/Vol] 132 mmol/L Low 135 - 145 mmol/L [facility] Urea nitrogen [Mass/Vol] 21 mg/dL Normal 5 - 21 mg/dL [facility] Urea nitrogen/Creatinine [Mass ratio] 26 mg/mg High 10 - 20 [facility] Capillary Glucose POCon 10-20 Glucose [Mass/Vol] 266 mg/dL High 55-99 [facility] Comment on above: Result Comment: Maris FUENTES Performed By: #### 2 [id number] #### [facility] [address] [place] [address] Glucose [Mass/Vol] 272 mg/dL High 55-99 [facility] Comment on above: Result Comment: Maris FUENTES Performed By: #### 2 [id number] #### [facility] [address] [place] [address] Glucose [Mass/Vol] 215 mg/dL High 55-99 [facility] Comment on above: Result Comment: Maris FUENTES Performed By: #### 2 [id number] #### [facility] [address] [place] [address] Glucose [Mass/Vol] 216 mg/dL High 55-99 [facility] Comment on above: Result Comment: Maris madrid RN/ Performed By: #### 2 [id number] #### [facility] [address] [place] [address] Extra Blueon 11-09-2024 Tube Collected Plasma Yes Invalid Interpretation Code [facility] Comment on above: Performed By: #### 1 [id number] #### [facility] [address] [place] [address] HEMATOLOGYOrdered By: SYSTEM SYSTEM on 11-09-2024 Band form neutrophils/100 WBC (Bld) 1.0 % Normal 0.0 - 6.0 % [facility] Basophils (Bld) [#/Vol] 0.0 E9/L Normal 0.0 - 0.2 E9/L [facility] Basophils/100 WBC (Bld) 0.0 % Normal 0.0 - 2.0 % [facility] Eosinophils (Bld) [#/Vol] 0.0 E9/L Normal 0.0 - 0.5 E9/L [facility] Eosinophils/100 WBC (Bld) 0.0 % Normal 0.0 - 8.0 % [facility] Erythrocyte distribution width (RBC) [Ratio] 13.6 % Normal 10.9 - 14.2 % [facility] Hematocrit (Bld) [Volume fraction] 36.0 % Normal 34.0 - 46.0 % [facility] Hemoglobin (Bld) [Mass/Vol] 12.4 g/dL Normal 12.0 - 16.0 gm/dL [facility] Lymphocytes (Bld) [#/Vol] 1.4 E9/L Normal 1.0 - 4.0 E9/L [facility] Lymphocytes/100 WBC (Bld) 7.0 % Low 14.0 - 50.0 % [facility] MCH (RBC) [Entitic mass] 30.4 pg Normal 27.0 - 34.0 pg [facility] MCHC (RBC) [Mass/Vol] 34.6 g/dL Normal 31.4 - 36.0 gm/dL [facility] MCV (RBC) [Entitic vol] 87.9 fL Normal 80.0 - 100.0 fL [facility] Monocytes (Bld) [#/Vol] 0.6 E9/L Normal 0.2 - 1.0 E9/L [facility] Monocytes/100 WBC (Bld) 3.0 % Low 4.0 - 14.0 % [facility] Neutrophils (Bld) [#/Vol] 18.1 E9/L Invalid Interpretation Code [facility] Platelet 168.0 E9/L Normal 150.0 - 500.0 E9/L [facility] Platelet mean volume (Bld) [Entitic vol] 8.8 fL Normal 6.4 - 10.8 fL [facility] RBC (Bld) [#/Vol] 4.1 E12/L Low 4.3 - 5.9 E12/L [facility] Segmented neutrophils/100 WBC (Bld) 89.0 % High 36.0 - 75.0 % [facility] WBC corrected for nucl RBC Auto (Bld) [#/Vol] 20.1 E9/L High 4.0 - 11.0 E9/L [facility] Hep Func Panelon 11-09-2024 Albumin [Mass/Vol] 3.7 g/dL Normal 3.3-5.0 [facility] Comment on above: Performed By: #### 2 [id number] #### [facility] [address] [place] [address] Albumin/Globulin (S) [Mass conc ratio] 1.2 Normal 1.1-2.2 [facility] Comment on above: Performed By: #### 2 [id number] #### [facility] [address] [place] [address] ALP [Catalytic activity/Vol] 63 Int._Unit/L Normal 21-98 [facility] Comment on above: Performed By: #### 2 [id number] #### [facility] [address] [place] [address] ALT No additional P-5'-P [Catalytic activity/Vol] 44 Int._Unit/L Normal 6-46 [facility] Comment on above: Performed By: #### 2 [id number] #### [facility] [address] [place] [address] AST [Catalytic activity/Vol] 45 Int._Unit/L High 5-43 [facility] Comment on above: Performed By: #### 2 [id number] #### [facility] [address] [place] [address] Bilirubin [Mass/Vol] 2.0 mg/dL High 0.0-1.1 [facility] Comment on above: Performed By: #### 2 [id number] #### [facility] [address] [place] [address] Bilirubin.direct [Mass/Vol] 0.7 mg/dL High 0.0-0.4 [facility] Comment on above: Performed By: #### 2 [id number] #### [facility] [address] [place] [address] Bilirubin.indirect [Mass or moles/Vol] 1.3 mg/dL High 0.1-0.9 [facility] Comment on above: Performed By: #### 2 [id number] #### [facility] [address] [place] [address] Globulin (S) [Mass/Vol] 3.0 g/dL Normal 1.4-4.0 [facility] Comment on above: Performed By: #### 2 [id number] #### [facility] [address] [place] [address] Protein [Mass/Vol] 6.7 g/dL Normal 6.0-7.8 [facility] Comment on above: Performed By: #### 2 [id number] #### [facility] [address] [place] [address] Interdisciplinary Note - Bravo e Manageron 11-09-2024 Interdisciplinary Note - Machinist Interdisciplinary Note - Machinist CRM to room 309 Patient is getting ready to be taken to the OR CRM will come back later this date if able or on 11/10 Patient was a direct admit from [facility] for Acute Sandra. Patient is going to OR today with Dr Loo Patient DC dates and plans TBD. CRM contact info to [place]. CRM following Patient is still not back from OR CRM will have to see on 11/10 [facility] Comment on above: Result Comment: Elec tronically Signed By: Neha Keyes\.br\Date and Time Signed: 11/09/24 15:27 EST Interdisciplinary Note - Machinist Interdisciplinary Note - Machinist CRM to room 309 Patient is getting ready to be taken to the OR CRM will come back later this date if able or on 11/10 Patient was a direct admit from [facility] for Acute Sandra. Patient is going to OR today with Dr Loo Patient DC dates and plans TBD. CRM contact info to [place] nathan. CRM following Normal [facility] Comment on above: Result Comment: Elec tronically Signed By: Neha Keyes\.br\Date and Time Signed: 11/09/24 11:47 EST Main OR Intraoperative Recor don 11-09-2024 Main OR Intraoperative Record Main OR Intraoperative Record IntraOp Document Type FT Summary Primary Physician: Domenico Loo MD Finalized Date/Time: 11/09/24 16:18:01 Pt. Name: CIERA HAYES Perfecto Linares/Sex: 1955 Female Med Rec #: [id number] Physician: Domenico Loo MD Financial #: [id number] Pt. Type: O Room/Bed: [place] [address] Admit/Disch: 11/09/24 03:12:02 - Institution: Case Times FT Entry 1 Patient Times In Room 11/09/24 13:03:00 Out Room 11/09/24 16:17:00 Procedure Times Start 11/09/24 13:24:00 Stop 11/09/24 16:06:00 Anesthesia Times Start 11/09/24 13:03:00 Stop 11/09/24 16:17:00 Last Modified By: Manuel SALCIDO, Arianna Gutiérrez 11/09/24 16:16:57 Case Attendance FT Entry 1 Entry 2 Entry 3 Case Attendee Domenico Loo MD [facility], Jose Jackson RN, Arianna Gutiérrez Role Performed Surgeon - Primary Anesthesiologist Demand Planning Manager - Primary Benefits Director Time In 11/09/24 13:14:00 11/09/24 13:03:00 11/09/24 13:03:00 Time Out 11/09/24 16:17:00 11/09/24 16:17:00 11/09/24 16:17:00 Procedure CHOLECYSTECTOMY CHOLECYSTECTOMY CHOLECYSTECTOMY LAPAROSCOPIC W/ LAPAROSCOPIC W/ LAPAROSCOPIC W/ CHOLANGI(.) CHOLANGI(.) CHOLANGI(.) Comments dr. kumar supervising out for break at [phone] Last Modified By: Manuel RN, Arianna Jackson RN, Arianna Jackson RN, Arianna Chaudhry P 11/09/24 Richa P 11/09/24 Richa P 11/09/24 16:16:58 16:16:58 16:16:58 Entry 4 Entry 5 Entry 6 Case Attendee Ruby Lynne SANDBLAST CARVER, Christine Demarco RN, Victorina Boogie Role Performed Scrub - Primary SANDBLAST CARVER/SA Staff - Other Time In 11/09/24 13:03:00 11/09/24 13:05:00 11/09/24 13:05:00 Time Out 11/09/24 16:17:00 11/09/24 13:19:00 11/09/24 13:17:00 Procedure CHOLECYSTECTOMY CHOLECYSTECTOMY CHOLECYSTECTOMY LAPAROSCOPIC W/ LAPAROSCOPIC W/ LAPAROSCOPIC W/ CHOLANGI(.) CHOLANGI(.) CHOLANGI(.) Comments helping in room Last Modified By: Manuel RN, Arianna Jackson RN, Arianna Jackson RN, Arianna Chaudhry P 11/09/24 Richa P 11/09/24 Richa P 11/09/24 16:16:58 16:16:58 16:16:58 Entry 7 Entry 8 Case Attendee Chase PENN, Jean Carlos Rojas Role Performed PA/[facility] Demand Planning Manager - Relief Time In 11/09/24 13:14:00 11/09/24 14:53:00 Time Out 11/09/24 16:17:00 11/09/24 15:17:00 Procedure CHOLECYSTECTOMY CHOLECYSTECTOMY LAPAROSCOPIC W/ LAPAROSCOPIC W/ CHOLANGI(.) CHOLANGI(.) Comments break relief Last Modified By: Manuel RN, Arianna Jackson RN, Arianna Chaudhry P 11/09/24 Richa P 11/09/24 16:16:58 16:16:58 Perioperative Protocols FT Pre-Care Text: Implements protective measures prior to operative or invasive procedure, confirms identity before the operative or invasive procedure, verifies operative procedure, surgical site, and laterality Entry 1 Procedure(s) CHOLECYSTECTOMY Patient Identity Birthday, Blood Band, LAPAROSCOPIC W/ Verified (select at ID Band Check, Patient CHOLANGI(.) least 2): Participation Consents / H and P Anesthesia Consent, Operative Site N/A Verified H&P, Surgery/Procedure Marking Verified Consent, Transfusion Consent Surgical Site Yes Laterality Verified n/a Verified Procedure Verified Yes Correct Patient Yes Position Verified Availability Equipment, Medication, Prep Dry Yes Verified (If X-ray Applicable) PreOp Antibiotic Yes Time Out Domenico Loo MD, Gower Given Participants Jose FERRIS, Manuel SALCIDO, Maged Pulido Laura C Time Out Complete 11/09/24 13:22:00 Outcomes Met? Yes Last Modified By: Arianna Jackson RN 11/09/24 13:56:16 Post-Care Text: The patient is free from signs and symptoms of injury caused by extraneous objects Allergy Information FT Pre-Care Text: Verifies allergies Entry 1 Allergies Reviewed? Yes Allergies Reviewed Self/Patient With Outcomes Met? Yes Last Modified By: Arianna Jackson RN 11/09/24 13:56:21 Post-Care Text: The patient received appropriate medication(s) safely administered during the perioperative period Surgical Procedures FT Entry 1 Procedure Description Procedure CHOLECYSTECTOMY Modifiers . LAPAROSCOPIC W/ CHOLANGIOGRAM Surgeon Description LAPAROSCOPIC CHOLECYSTECTOMY, INTRAOPERATIVE TAP BLOCK Primary Procedure Yes Primary Surgeon Domenico Loo MD Start 11/09/24 13:24:00 Stop 11/09/24 16:06:00 Anesthesia Type General Surgical Service General Wound Class 2 - Clean-Contaminated Last Modified By: Arianna Jackson RN 11/09/24 16:06:44 General Case Data FT Pre-Care Text: Classifies surgical wound, implements aseptic technique, initiates traffic control Entry 1 Case Information OR OR 4 FT Case Level Level 3 Wound Class 2 - Clean-Contaminated Specialty General ASA Class 3 Preop Diagnosis ACUTE CHOLECYSTITIS Postop Same As Preop Yes Postop Diagnosis ACUTE CHOLECYSTITIS Outcomes Met? Yes Last Modified By: Arianna Jackson RN 11/09/24 14:07:26 Post-Care Text: The patient is free from signs and symptoms of infection Skin Assessment (Pre Procedure (more content not included)... Normal [facility] Main OR PACU I Recordon 10-20 Main OR PACU I Record Main OR PACU I Rec ord PACU Phase I Document Type FT Summary Primary Physician: Domenico Loo MD Finalized Date/Time: 11/09/24 17:40:25 Pt. Name: CIERA HAYES Perfecto Greenberg/Sex: 1955 Female Med Rec #: [id number] Physician: Domenico Loo MD Financial #: [id number] Pt. Type: O Room/Bed: [place] [address] Admit/Disch: 11/09/24 03:12:02 - Institution: Case Times PACU I FT Pre-Care Text: Identifies barriers to communication and implements measures to provide psychological support Develops individualized plan of care, and ensures continuity of care Maintains patient's dignity and privacy, and maintains patient confidentiality Identifies and reports philosophical, cultural, and spiritual beliefs and values Identifies individual values and wishes concerning care Implements aseptic technique, and administers prescribed antibiotic therapy and immunizing agents as ordered Evaluates postoperative tissue perfusion Implements thermoregulation measures, and monitors body temperature Evaluates postoperative respiratory status Evaluates postoperative cardiac status Evaluates postoperative neurological status Assesses pain control, collaborated in initiating patient-controlled analgesia and implements alternative methods of pain control Verifies allergies, administers prescribed medications and solutions, evaluates response to medications Entry 1 In PACU I 11/09/24 16:19:00 Discharge from PACU 11/09/24 16:49:00 I Outcomes Met? Yes Last Modified By: Sun Michael RN 11/09/24 17:40:11 Post-Care Text: The patient demonstrates knowledge of the expected response to the operative or invasive procedure The patient's care is consistent with the individualized perioperative plan of care The patient's right to privacy is maintained The patient's value system, lifestyle, ethnicity, and culture are considered, respected, and incorporated into the perioperative plan of care The patient participates in decisions affecting his or her perioperative plan of care The patient is free from signs and symptoms of infection The patient has wound/tissue perfusion consistent with or improved from baseline levels established preoperatively The patient is at or returning to normothermia at the conclusion of the immediate postoperative period The patient's respiratory function is consistent with or improved from baseline levels established preoperatively The patient's cardiovascular status is consistent with or improved from baseline levels established preoperatively The patient's cardiovascular status is consistent with or improved from baseline levels established preoperatively The patient demonstrates and/or reports adequate pain control throughout the perioperative period The patient received appropriate medication(s), safely administered during the perioperative period Acuity Level PACU I FT Entry 1 Start Time 11/09/24 16:19:00 Stop Time 11/09/24 16:49:00 Acuity Level Acuity Level I Last Modified By: Sun Michael RN 11/09/24 17:40:21 Finalized By: Sun Michael RN Document Signatures Signed By: Sun Michael RN 11/09/24 17:40 Normal [facility] Main OR Preoperative Recordo n 11-09-2024 Main OR Preoperative Record Main OR Preoperative Record PreOp Document Type FT Summary Primary Physician: Domenico Loo MD Finalized Date/Time: 11/09/24 14:07:41 Pt. Name: CIERA HAYES Perfecto /Sex: 1955 Female Med Rec #: [id number] Physician: Domenico Loo MD Financial #: [id number] Pt. Type: O Room/Bed: [place] [address] Admit/Disch: 11/09/24 03:12:02 - Institution: Case Times PreOp FT Pre-Care Text: Verifies consent for planned procedure, identifies individual values and wishes concerning care, includes family members in perioperative teaching Entry 1 Patient Times. In Pre Surgery 11/09/24 12:00:00 Out Pre Surgery 11/09/24 13:01:00 Outcomes Met? Yes Last Modified By: Arianna Jackson RN 11/09/24 14:07:40 Post-Care Text: The patient participates in decisions affecting his or her perioperative plan of care Finalized By: Arianna Jackson RN Document Signatures Signed By: Arianna Jackson RN 11/09/24 14:07 Normal [facility] US Gallbladderon 11-09-2024 US Gallbladder Exam Date/Time: 11/09/2024 09:43 EST Reason for Exam: eval gallbladder;Other (please specify) Report IMPRESSION: FINDINGS CONSISTENT WITH ACUTE CHOLECYSTITIS. MILDLY ENLARGED FATTY LIVER. EXAM: US Gallbladder DATE: 11/09/2024 9:05 AM CLINICAL HISTORY: eval gallbladder. COMPARISON: Outside CT abdomen and pelvis 11/08/2024. TECHNIQUE: Transabdominal ultrasound of the right upper quadrant was performed. FINDINGS: The study is moderately limited by the patient's body habitus. Small gallstones are noted within the mild to moderately distended gallbladder. Moderate irregular wall thickening and mild pericholecystic fluid appears similar to the previous CT. There is no abnormal biliary dilatation or other acute findings identified. The common duct measures approximately 4 mm at the reyes hepatis. The liver is mildly enlarged measuring over 20 cm in length with mildly increased echogenicity, most consistent with fatty infiltration. The visualized pancreas, right kidney, and great vessels are unremarkable. Ordering Provider: Bryant Stone FINAL REPORT Dictated: 11/09/2024 12:17 pm Guillermo Adkins MD Signed (Electronic Signature): 11/09/2024 12:17 pm Signed by: Guillermo Adkins MD Transcribed by: [employer] Technologist: NIMISHA Otero [facility] eGFRon 11-09-2024 eGFR 80 mL/min/1.73 m2 Normal >=59 [facility] Comment on above: Performed By: #### 1 [id number] #### [facility] [address] [place] [address] MG MAMM SCREEN 3D AMNA CADon 12-30-2022 MG MAMM SCREEN 3D AMNA CAD Patient: CIERA HAYES Exam Date: 12/30/2022 : 1955 Gender:F Ordering : [facility] Admission #: [id number] Family : Order #: [id number] CLICK HERE TO VIEW EXAM RADIOLOGY REPORT PROCEDURE: MAMMOGRAM SCREENING 3D BILATERAL CAD COMPARISON: MG MAMM SCREEN AMNA W CAD, 08/31/2019. MG MAMM SCREEN 3D AMNA CAD, 04/22/2021. INDICATIONS: Screening mammography Calculator Name NCI Breast Cancer Risk Assessment Tool 5 Year Breast Cancer Risk 1.90% Lifetime Breast Cancer Risk 6.70% Personal Breast Cancer No Personal Ovarian Cancer No Treatments None Family Cancers Aunt-maternal with breast cancer at age 80; Mother with colon cancer at age 79; Sister with cervical cancer at age 60. LOCATION: [facility] BREAST COMPOSITION: Scattered areas fibroglandular density. FINDINGS: DIAGNOSTIC CATEGORY 2--BENIGN FINDING. NO CHANGE FROM COMPARISON. Scattered benign-appearing nodules are present. Scattered benign-appearing calcifications are present. Scattered benign-appearing lymph nodes are present. RIGHT BREAST: No significant suspicious finding. Multiple stable coarse calcifications anterior breast. LEFT BREAST: No significant suspicious finding. RECOMMENDATIONS: ROUTINE MAMMOGRAM AND CLINICAL EVALUATION IN 12 MONTHS. PLEASE NOTE: A NORMAL MAMMOGRAM DOES NOT EXCLUDE THE POSSIBILITY OF BREAST CANCER. A CLINICALLY SUSPICIOUS PALPABLE LUMP SHOULD BE BIOPSIED. Dictated by: Trace Calvo MD on 12/31/2022 at 06:51 Approved by: Trace Calvo MD on 12/31/2022 at 06:55 Normal [facility] CBC AUTO DIFFon 12-29-2022 BASO # 0.1 103/ul Normal 0.0-0.1 [facility] Comment on above: Performed By: #### C BC #### [facility] [address] [place] [address] Dr. Melania Rodriguez Basophils/100 WBC (Bld) 0.6 % Normal 0.2-2.0 [facility] Comment on above: Performed By: #### C BC #### [facility] [address] [place] [address] Dr. Melania Rodriguez EO # 0.3 103/ul Normal 0.0-0.7 [facility] Comment on above: Performed By: #### C BC #### [facility] [address] [place] [address] Dr. Melania Rodriguez Eosinophils/100 WBC (Bld) 3.9 % Normal 0.9-7.0 [facility] Comment on above: Performed By: #### C BC #### [facility] [address] [place] [address] Dr. Melania Rodriguez Erythrocyte distribution width (RBC) [Ratio] 13.4 % Normal 11.0-15.0 [facility] Comment on above: Performed By: #### C BC #### [facility] [address] [place] [address] Dr. Melania Rodriguez Hematocrit (Bld) [Volume fraction] 42.5 % Normal 36.0-48.0 [facility] Comment on above: Performed By: #### C BC #### [facility] [address] [place] [address] Dr. Melania Rodriguez Hemoglobin (Bld) [Mass/Vol] 13.8 g/dL Normal 12.0-16.0 [facility] Comment on above: Performed By: #### C BC #### [facility] [address] [place] [address] Dr. Melania Rodriguez IG # 0.03 10e3/ul Normal 0.00-0.03 [facility] Comment on above: Performed By: #### C BC #### [facility] [address] [place] [address] Dr. Melania Rodriguez IG % 0.4 % Normal 0.0-0.5 [facility] Comment on above: Performed By: #### C BC #### [facility] [address] [place] [address] Dr. Melania Rodriguez LYMPH # 3.0 103/ul Normal 1.2-3.8 [facility] Comment on above: Performed By: #### C BC #### [facility] [address] [place] [address] Dr. Melania Rodriguez Lymphocytes/100 WBC (Bld) 35.1 % Normal 20.5-60.0 [facility] Comment on above: Performed By: #### C BC #### [facility] [address] [place] [address] Dr. Melania Rodriguez MANUAL DIFF REQ NO Normal [facility] Comment on above: Performed By: #### C BC #### [facility] [address] [place] [address] Dr. Melania Rodriguez MCH (RBC) [Entitic mass] 29.5 pg Normal 26.7-34.0 [facility] Comment on above: Performed By: #### C BC #### [facility] [address] [place] [address] Dr. Melania Rodriguez MCHC (RBC) [Mass/Vol] 32.5 g/dL Normal 29.9-35.2 [facility] Comment on above: Performed By: #### C BC #### [facility] [address] [place] [address] Dr. Melania Rodriguez MCV (RBC) [Entitic vol] 90.8 fL Normal 81.0-99.0 [facility] Comment on above: Performed By: #### C BC #### [facility] [address] [address] [address] Melania Rodriguez MONO # 0.4 103/ul Normal 0.3-0.8 [facility] Comment on above: Performed By: #### C BC #### [facility] [address] [address] [address] Melania Rodriguez Monocytes/100 WBC (Bld) 5.1 % Normal 1.7-12.0 [facility] Comment on above: Performed By: #### C BC #### [facility] [address] [place] [address] Dr. Melania Rodriguez NEUT # 4.7 103/ul Normal 1.4-6.5 [facility] Comment on above: Performed By: #### C BC #### [facility] [address] [place] [address] Dr. Melania Rodriguez Neutrophils/100 WBC (Bld) 54.9 % Normal 43.0-75.0 [facility] Comment on above: Performed By: #### C BC #### [facility] [address] [place] [address] Dr. Melania Rodriguez Platelet mean volume (Bld) [Entitic vol] 10.9 fL Normal 9.5-13.5 [facility] Comment on above: Performed By: #### C BC #### [facility] [address] [place] [address] Dr. Melania Rodriguez PLT 196 103/ul Normal 150-450 [facility] Comment on above: Performed By: #### C BC #### [facility] [address] [place] [address] Dr. Melania Rodriguez RBC 4.68 106/ul Normal 4.20-5.40 [facility] Comment on above: Performed By: #### C BC #### [facility] [address] [place] [address] Dr. Melania Rodriguez WBC 8.6 103/ul Normal 4.0-11.0 [facility] Comment on above: Performed By: #### C BC #### [facility] [address] [place] [address] Dr. Melania Rodriguez FREE THYROXINE INDEX T7on FTI 2.58 Normal 1.30-4.50 [facility] Comment on above: Performed By: #### C MP, T7, TSH, LIPID #### [facility] [address] [place] [address] Dr. Melania Rodriguez T3U 34.0 % Normal 30.0-39.0 [facility] Comment on above: Performed By: #### C MP, T7, TSH, LIPID #### [facility] [address] [place] [address] Dr. Melania Rodriguez T4 [Mass/Vol] 7.60 ug/dL Normal 4.80-13.90 [facility] Comment on above: Performed By: #### C MP, T7, TSH, LIPID #### [facility] [address] [place] [address] Dr. Melania Rodriguez GLYCOHEMOGLOBIN A1Con 2022 ADA RECOMMENDATION SEE BELOW Normal [facility] Comment on above: Result Comment: ADA RECOMMENDED LIMIT 4.0 - 6.0 ADA THERAPEUTIC TARGET < 7.0 ACTION SUGGESTED > 7.0 Performed By: #### A 1C #### [facility] [address] [place] [address] Dr. Melania Rodriguez Glucose [Mass/Vol] 146 mg/dL Normal [facility] Comment on above: Performed By: #### A 1C #### [facility] [address] [place] [address] Dr. Melania Rodriguez HbA1c (Bld) [Mass fraction] 6.7 % Critically high 4.5-6.2 [facility] Comment on above: Performed By: #### A 1C #### [facility] [address] [place] [address] Dr. Melania Rodriguez LIPID PROFILEon 12-29-2022 CHOL-HDL RATIO NORM SEE BELOW Normal [facility] Comment on above: Result Comment: 3.3 - 4.4 LOW RISK 4.4 - 7.1 AVERAGE RISK 7.1 - 11.0 MODERATE RISK >11.0 HIGH RISK Performed By: #### C MP, T7, TSH, LIPID #### [facility] [address] [address] [address] Melania Rodriguez Cholesterol [Mass/Vol] 140 mg/dL Normal <=200 [facility] Comment on above: Performed By: #### C MP, T7, TSH, LIPID #### [facility] [address] [address] [address] Melania Rodriguez Cholesterol in HDL [Mass/Vol] 40 mg/dL Normal 40-60 [facility] Comment on above: Performed By: #### C MP, T7, TSH, LIPID #### [facility] [address] [address] [address] Melania Rodriguez Cholesterol in LDL [Mass/Vol] 57.2 mg/dL Normal [facility] Comment on above: Performed By: #### C MP, T7, TSH, LIPID #### [facility] [address] [address] [address] Melania Rodriguez Cholesterol.total/Cho lesterol in HDL [Mass ratio] 3.5 {ratio} Normal [facility] Comment on above: Performed By: #### C MP, T7, TSH, LIPID #### [facility] [address] [address] [address] Melania Rodriguez HDL NORMAL > or = 60 mg/dl - LO W CARDIOVASCULAR RISK <40 mg/dl - HIGH CARDIOVASCULAR RISK Normal [facility] Comment on above: Performed By: #### C MP, T7, TSH, LIPID #### [facility] [address] [address] [address] Melania Rodriguez LDL CALC NORMAL SEE BELOW Normal [facility] Comment on above: Result Comment: <100 mg/dl OPTIMAL 100 - 129 mg/dl NEAR OR ABOVE OPTIMAL 130 - 159 mg/dl BORDERLINE HIGH 160 - 189 mg/dl HIGH >190 mg/dl VERY HIGH Performed By: #### C MP, T7, TSH, LIPID #### [facility] [address] [address] [address] Melania Rodriguez Triglyceride [Mass/Vol] 214 mg/dL Critically high <=150 [facility] Comment on above: Performed By: #### C MP, T7, TSH, LIPID #### [facility] [address] [address] [address] Melania Rodriguez VLDL CALC 42.8 mg/dL Normal [facility] Comment on above: Performed By: #### C MP, T7, TSH, LIPID #### [facility] [address] [address] [address] Melania Rodriguez PROF 14(COMP METB)on 023 Albumin [Mass/Vol] 3.8 g/dL Normal 3.4-5.[address] [facility] Comment on above: Performed By: #### C MP, T7, TSH, LIPID #### [facility] [address] [address] [address] Melania Rodriguez Albumin/Globulin [Mass ratio] 1.2 {ratio} Normal [facility] Comment on above: Performed By: #### C MP, T7, TSH, LIPID #### [facility] [address] [place] [address] Dr. Melania Rodriguez ALP [Catalytic activity/Vol] 73 U/L Normal 46-116 [facility] Comment on above: Performed By: #### C MP, T7, TSH, LIPID #### [facility] [address] [place] [address] Dr. Melania Rodriguez ALT [Catalytic activity/Vol] 37 U/L Normal 14-59 [facility] Comment on above: Performed By: #### C MP, T7, TSH, LIPID #### [facility] [address] [address] [address] Melania Rodriguez Anion gap [Moles/Vol] 12.8 mmol/L Normal [facility] Comment on above: Performed By: #### C MP, T7, TSH, LIPID #### [facility] [address] [place] [address] Dr. Melania Rodriguez AST [Catalytic activity/Vol] 25 U/L Normal 15-37 [facility] Comment on above: Performed By: #### C MP, T7, TSH, LIPID #### [facility] [address] [place] [address] Dr. Melania Rodriguez Bilirubin [Mass/Vol] 0.7 mg/dL Normal 0.2-1.0 [facility] Comment on above: Performed By: #### C MP, T7, TSH, LIPID #### [facility] [address] [place] [address] Dr. Melania Rodriguez Calcium [Mass/Vol] 9.6 mg/dL Normal 8.5-10.[address] [facility] Comment on above: Performed By: #### C MP, T7, TSH, LIPID #### [facility] [address] [place] [address] Dr. Melania Rodriguez Chloride [Moles/Vol] 103 mmol/L Normal 98-107 [facility] Comment on above: Performed By: #### C MP, T7, TSH, LIPID #### [facility] [address] [place] [address] Dr. Melania Rodriguez CO2 [Moles/Vol] 29.4 mmol/L Normal 21.0-32.0 [facility] Comment on above: Performed By: #### C MP, T7, TSH, LIPID #### [facility] [address] [place] [address] Dr. Melania Rodriguez Creatinine [Mass/Vol] 0.59 mg/dL Normal 0.55-1.02 [facility] Comment on above: Performed By: #### C MP, T7, TSH, LIPID #### [facility] [address] [place] [address] Dr. Melania Rodriguez EGFR-AF CYMRO >60 Normal >=60 [facility] Comment on above: Performed By: #### C MP, T7, TSH, LIPID #### [facility] [address] [place] [address] Dr. Melania Rodriguez EGFR-NON AF CYMRO >60 Normal >=60 [facility] Comment on above: Performed By: #### C MP, T7, TSH, LIPID #### [facility] [address] [place] [address] Dr. Melania Rodriguez Globulin (S) [Mass/Vol] 3.1 g/dL Normal [facility] Comment on above: Performed By: #### C MP, T7, TSH, LIPID #### [facility] [address] [address] [address] Melania Rodriguez Glucose [Mass/Vol] 106 mg/dL Normal 74-106 [facility] Comment on above: Performed By: #### C MP, T7, TSH, LIPID #### [facility] [address] [address] [address] Melania Rodriguez Potassium [Moles/Vol] 4.2 mmol/L Normal 3.5-5.1 [facility] Comment on above: Performed By: #### C MP, T7, TSH, LIPID #### [facility] [address] [address] [address] Melania Rodriguez Protein [Mass/Vol] 6.9 g/dL Normal 6.4-8.2 [facility] Comment on above: Performed By: #### C MP, T7, TSH, LIPID #### [facility] [address] [place] [address] Dr. Melania Rodriguez Sodium [Moles/Vol] 141 mmol/L Normal 136-145 [facility] Comment on above: Performed By: #### C MP, T7, TSH, LIPID #### [facility] [address] [address] [address] Melania Rodriguez Urea nitrogen [Mass/Vol] 17.0 mg/dL Normal 7.0-18.0 [facility] Comment on above: Performed By: #### C MP, T7, TSH, LIPID #### [facility] [address] [address] [address] Melania Rodriguez Urea nitrogen/Creatinine [Mass ratio] 28.8 mg/mg Normal [facility] Comment on above: Performed By: #### C MP, T7, TSH, LIPID #### [facility] [address] [address] [address] Melania Rodriguez TSHon 12-29-2022 TSH 2.301 uIU/mL Normal 0.358-3.740 [facility] Comment on above: Performed By: #### C MP, T7, TSH, LIPID #### [facility] [address] [place] [address] Dr. Melania Rodriguez Vital Signs Date Time Vital Sign Value Performing Clinician Faci lity 11-16-2024 09:53-0500 Diastolic blood pressure 70 mm[Hg] Tulio London [facility] 11-16-2024 09:53-0500 Heart rate 61 /min Tulio London [facility] 11-16-2024 09:53-0500 Systolic blood pressure 121 mm[Hg] Tulio London [facility] 11-10-2024 15:00-0500 Hourly Rounding Domenico Loo [facility] 11-10-2024 15:00-0500 Promise to Return Domenico Loo [facility] 11-10-2024 14:00-0500 Hourly Rounding Domenico Loo [facility] 11-10-2024 14:00-0500 Promise to Return Domenico Loo [facility] 11-10-2024 13:00-0500 Hourly Rounding Domenico Loo [facility] 11-10-2024 13:00-0500 Promise to Return Domenico Loo [facility] 11-10-2024 11:07-0500 Heart rate 76 /min Domenico Loo [facility] 11-10-2024 11:07-0500 SaO2% (BldA) [Mass fraction] 98 % Domenico Loo [facility] 11-10-2024 11:03-0500 Body temperature 97.88 [degF] Domenico Loo [facility] 11-10-2024 11:03-0500 Diastolic blood pressure 66 mm[Hg] Domenico Loo [facility] 11-10-2024 11:03-0500 Mean blood pressure 80 mm[Hg] Domenico Loo [facility] 11-10-2024 11:03-0500 Systolic blood pressure 109 mm[Hg] Domenico Loo [facility] 11-10-2024 08:05-0500 Diastolic blood pressure 61 mm[Hg] Domenico Loo [facility] 11-10-2024 08:05-0500 Systolic blood pressure 95 mm[Hg] Domenico Loo [facility] 11-10-2024 07:53-0500 Heart rate 70 /min Domenico Loo [facility] 11-10-2024 07:53-0500 SaO2% (BldA) [Mass fraction] 99 % Domenico Loo [facility] 11-10-2024 07:52-0500 Body temperature 97.7 [degF] Domenico Loo [facility] 11-10-2024 07:52-0500 Diastolic blood pressure 61 mm[Hg] Domenico Loo [facility] 11-10-2024 07:52-0500 Mean blood pressure 72 mm[Hg] Domenico Loo [facility] 11-10-2024 07:52-0500 Systolic blood pressure 95 mm[Hg] Domenico Loo [facility] 11-10-2024 04:07-0500 Body temperature 97.52 [degF] Domenico Loo [facility] 11-10-2024 04:07-0500 Heart rate 68 /min Domenico Loo [facility] 11-10-2024 04:07-0500 Mean blood pressure 74 mm[Hg] Domenico Loo [facility] 11-10-2024 04:07-0500 Respiratory rate 18 /min Domenico Loo [facility] 11-10-2024 04:07-0500 SaO2% (BldA) [Mass fraction] 99 % Domenico Loo [facility] 11-10-2024 01:07-0500 Body temperature 97.16 [degF] Domenico Loo [facility] 11-10-2024 01:07-0500 Mean blood pressure 80 mm[Hg] Domenico Loo [facility] 11-10-2024 01:07-0500 Respiratory rate 18 /min Domenico Loo [facility] 11-09-2024 20:22-0500 Respiratory rate 16 /min Domenico Loo [facility] 11-09-2024 20:22-0500 Body temperature 98.06 [degF] Domenico Loo [facility] 11-09-2024 20:21-0500 Mean blood pressure 83 mm[Hg] Domenico Loo [facility] 11-09-2024 17:00-0500 Body temperature 97.7 [degF] Domenico Loo [facility] 11-09-2024 17:00-0500 Mean blood pressure 75 mm[Hg] Domenico Loo [facility] 11-09-2024 16:55-0500 Blood Pressure Location Domenico Loo [facility] 11-09-2024 16:55-0500 Body temperature 97.52 [degF] Domenico Loo [facility] 11-09-2024 16:55-0500 Respiratory rate 19 /min Domenico Loo [facility] 11-09-2024 16:45-0500 Respiratory rate 19 /min Domenico Loo [facility] 11-09-2024 16:40-0500 Respiratory rate 21 /min Domenico Loo [facility] 11-09-2024 16:19-0500 Body temperature 96.8 [degF] Domenico Loo [facility] 11-09-2024 16:15-0500 FIO2 100 1 Domenico Loo [facility] 11-09-2024 16:10-0500 FIO2 100 1 Domenico Loo [facility] 11-09-2024 16:05-0500 FIO2 60 1 Domenico Loo [facility] 11-09-2024 03:00-0500 Heart rate 93 /min Domenico Loo [facility] Encounters Encounter Date Encounter Type Care Provider Facility Start: 11-16-2024 End: 11-16-2024 [place]ulatory [place]io [place] [place]: 11-16-2024 End: 11-16-2024 Patient encounter procedure Tulio London [facility] Start: 11-11-2024 End: 11-11-2024 Emergency department patient visit Jose Issa [place] [place]: 11-09-2024 End: 11-10-2024 ambulatory Domenico X Loo [place] [place] Start: 11-09-2024 End: 11-10-2024 Observation Domenico X Loo [facility] Start: 12-30-2022 End: 12-31-2022 ambulatory [facility] [place] Facility:[facility] Start: 12-29-2022 End: 12-30-2022 ambulatory [facility] Facility:[facility] Procedures Date Procedure Procedure Detail Performing Clinician Start: 11-09-2024 Cholecystectomy Domenico Mccurdy in Immunizations Immunization Date Immunization Notes Care Provider Emily luther 07-17-2023 influenza virus vacc ine, unspecified formulation Tulio London [facility] 07-17-2023 zoster vaccine recombinant Tulio Lita [facility] 04-16-2023 zoster vaccine recombinant Tulio London [facility] 08-21-2022 SARS-CoV-2 (COVID-19 ) [id number] Tulio London [facility] Comment on above: Result Comment: 2024: [id number] 10-23-2021 SARS-CoV-2 (COVID-19 ) mRNA-1273 vaccine Tulio Lita [facility] Comment on above: Result Comment: 2024: [id number] 01-12-2021 SARS-CoV-2 (COVID-19 ) mRNA-1273 vaccine Tulio Lita [facility] Comment on above: Result Comment: 2024: [id number] 12-15-2020 SARS-CoV-2 (COVID-19 ) mRNA-1273 vaccine Tulio Lita [facility] Comment on above: Result Comment: 2024: [id number] 07-21-2017 influenza virus vacc ine, unspecified formulation Tulio London [facility] 03-19-2010 pneumococcal polysaccharide vaccine, 23 valent Tulio London [facility] Payers Date Payer Category Payer Private Health Insurance [id number] 2021 Unknown [id number] 1955 Unknown [id number] 2.16.84 [id number] 1955 Unknown [id number] 2.16.84 [id number] 1955 Unknown [id number] 2.16.8 [id number] 1956 Unknown [id number] 2.16.8 [id number] 1956 Unknown [id number] 2.16.8 [id number] 1956 Unknown [id number] 2.16.8 [id number] 1956 Unknown [id number] 2.16.8 [id number] 1956 Unknown [id number] 2.16.8 [id number] 1956 Unknown [id number] 2.16.8 [id number] 1956 Unknown [id number] 2.16.8 [id number] 1955 Unknown [id number] 2.16.8 [id number] Social History Date Type Detail Facility Tobacco smoking status No Smokin g Status Entered [facility] Sex Assigned At Female [facility] Start: 11-16-2024 Tobacco smoking status Never s moked tobacco (finding) [facility] Tobacco smoking status Never [facility] Functional Status Date Assessment Result Facility 11-09-2024 Functional Status N/A [facility] - [facility] History and physical note 11-11-2024 Note Date & Type Note Facility 11-11-2024 Note History and Physical ACUTE CARE SURGERY CONSULT / H&P ------ Patient Name: CIERA HAYES Admission Date: 11/09/2024 03:12:02 Chief Complaint: Acute cholecystitis Patient seen and examined on 11/09/2024 HISTORY OF PRESENT ILLNESS CIERA HAYES is a 69 Years-old Female with a PMHx of HTN, T2DM, HLD. Patient was a direct admit from OSH due to acute cholecystitis. Pt reports pain started suddenly on Thursday and has been constant since. Has had nausea and vomiting. Reports pain is located on the right side of the abdomen. does not radiate. Has not eaten much in those 4 days due to pain. Denies fevers or chills. CT abd/pelvis at OSH consistent with acute cholecystitis. Past surgical history includes total hysterectomy. No blood thinners. PAST MEDICAL HISTORY: HTN, HLD, T2DM PAST SURGICAL HISTORY: Total hysterectomy PRE-ADMISSION MEDICATIONS: aspirin: 81 mg = 1 tab(s), Oral, Daily atorvastatin: 40 mg = 1 tab(s), Oral, Daily cholecalciferol: 25 mcg = 1 tab(s), Oral, Daily garlic lisinopril: 40 mg = 1 tab(s), Oral, Daily metformin: 1,000 mg = 1 tab(s), Oral, BID ALLERGIES: Allergies (1) Active Severity Reaction No Known Allergies None Documented SOCIAL HISTORY: Social History No active social history has been recorded Psychosocial History No active psychosocial history has been recorded FAMILY HISTORY: No family history recorded. REVIEW OF SYSTEMS Constitutional: no? fever, no? chills, no? sweats, no? weakness. Skin: no? Jaundice, no? rash, no? lesions, no? petechiae. ENMT: no? ear pain, no? sore throat, no? congestion, no? hoarseness. Respiratory: no? shortness of breath, no? cough, no? orthopnea, no? wheezing. Cardiovascular: no? chest pain, no? palpitations, no? edema. Gastrointestinal: +abdominal pain, N/V Genitourinary: no? dysuria, no? hematuria, no? discharge, no? pain. Musculoskeletal: no? back pain, no? trauma. Neurologic: no? headache, no? dizziness, no? numbness, no? weakness. Psychiatric: no? sleeping problems, no? irritability, no? mood swings/depression. Heme/Lymph: no? bleeding tendency, no? bruising tendency, no? petechiae, no? swollen lymph nodes Allergy/Immunologic: Seasonal allergies, no? food allergies, no? recurrent infections, no? impaired immunity PHYSICAL EXAM ------- Constitutional: Sitting up in bed, no acute distress. Not ill appearing HEENT: Atraumatic, normocephalic Cardiovascular: RRR Pulmonary/Chest: Breathing comfortably on RA Abdominal: Soft. Non-distended. Pain with palpation in the RUQ and RLQ Musculoskeletal: Moves all extremities spontaneously. Neurological: A&O x 3 Skin: Warm, dry Psychiatric: Pt has a normal mood and affect. BASIC LABS ------- Last 24 Hours Basic Metabolic Panel: Hematology: : () HGB: 12.4 (11/09/24) : () : () : () : () : () : () : () : () Creatinine: 0.8 (11/09/24) : () Additional - Last 24 Hours A/G Ratio: 1.2 (11/09/24) ABO/Rh: O POS (11/09/24) ABSC Gel Interp: Negative (11/09/24) AGAP: 12 (11/09/24) Albumin Lvl: 3.7 (11/09/24) Alk Phos: 63 (11/09/24) ALT: 44 (11/09/24) AST: 45 (11/09/24) Band Man: 1.0 (11/09/24) Basophil Abs Man: 0.0 (11/09/24) Basophil Man: 0.0 (11/09/24) Bili Direct: 0.7 (11/09/24) Bili Indirect: 1.3 (11/09/24) Bili Total: 2.0 (11/09/24) BUN: 21 (11/09/24) BUN/Creat Ratio: 26 (11/09/24) Calcium Lvl: 9.1 (11/09/24) Chloride: 97 (11/09/24) CO2: 27 (11/09/24) eGFR: 80 (11/09/24) Eos Abs Man: 0.0 (11/09/24) Eos Man: 0.0 (11/09/24) Globulin: 3.0 (11/09/24) Glucose Cap: 215 (11/09/24) Glucose Lvl: 222 (11/09/24) Hct: 36.0 (11/09/24) Lymph Abs Man: 1.4 (11/09/24) Lymph Man: 7.0 (11/09/24) MCH: 30.4 (11/09/24) MCHC: 34.6 (11/09/24) MCV: 87.9 (11/09/24) [place] Abs Man: 0.6 (11/09/24) Monocyte Man: 3.0 (11/09/24) MPV: 8.8 (11/09/24) Platelet: 168.0 (11/09/24) POC Device SN: [id number] (11/09/24) POC User ID: [id number] (11/09/24) POC Username: [email or web address] (11/09/24) Potassium Lvl: 3.8 (11/09/24) RBC: 4.1 (11/09/24) RDW: 13.6 (11/09/24) Segs Abs Man: 18.1 (11/09/24) Segs Man: 89.0 (11/09/24) Sodium Lvl: 132 (11/09/24) Total Protein: 6.7 (11/09/24) WBC: 20.1 (11/09/24) RADIOLOG Y ---- RUQ US: FINDINGS CONSISTENT WITH ACUTE CHOLECYSTITIS. MILDLY ENLARGED FATTY LIVER. MEDICAL DECISION MAKING --------- ASSESSMENT/IMPRESSION: CIERA HAYES is a 69 Years-old Female with a PMHx of HTN, T2DM, HLD. Patient was a direct admit (more content not included)... [facility] Comment on above: Result Comment: Elec tronically Signed By: Chase PENN, Bryant Gutierrez\.br\Date and Time Signed: 11/09/24 16:47 EST\.br\Electronically Co-Signed By: Santana KING, Domenico Sky\.br\Date and Time Co-Signed: 11/11/24 17:28 EST Discharge summary note 11-11-2024 Note Date & Type Note Facility 11-11-2024 Note Discharge [place] [address] CIERA HAYES Date of : 1955 69 Years Female Attending Domenico Loo MD Date of Admission 11/08/2024 Date of Discharge 11/10/2024 DIAGNOSES: cholecystitis hyperglycemia in DM2 PROCEDURES: Procedures Cholecystectomy (11/09/2024) DISCHARGE MEDICATIONS: DISCHARGE MEDICATIONS Medication List Active Medications Ordered acetaminophen: 975 mg, 3 tab(s), Oral, q6hr. aspirin: 81 mg, 1 tab(s), Oral, Daily. atorvastatin: 40 mg, 1 tab(s), Oral, Daily. cholecalciferol: 25 mcg, 1 tab(s), Oral, Daily. enoxaparin: 40 mg, 0.4 mL, SubCutaneous, Daily. HYDROmorphone: 0.5 mg, 0.5 mL, IV Push, q4hr, PRN: Pain. insulin lispro: 0-10 unit(s), SubCutaneous, QIDACHS. lisinopril: 40 mg, 2 tab(s), Oral, Daily. oxycodone: 5 mg, 1 tab(s), Oral, q4hr, PRN: Pain 4-7. oxycodone: 10 mg, 2 tab(s), Oral, q4hr, PRN: Pain 8-10. piperacillin-tazobactam + Sodium Chloride 0.9% intravenous solution 100 mL: 3.375 gm, 1 EA, 200 mL/hr, IV Piggyback, q6hrFT. senna: 8.6 mg, 1 tab(s), Oral, Once a day (at bedtime). Documented acetaminophen: 975 mg, 3 tab(s), Oral, q6hr, 0 Refill(s). aspirin: 81 mg, 1 tab(s), Oral, Daily, 30 tab(s), 0 Refill(s). atorvastatin: 40 mg, 1 tab(s), Oral, Daily, 30 tab(s), 0 Refill(s). cholecalciferol: 25 mcg, 1 tab(s), Oral, Daily, 0 Refill(s). garlic: 0 Refill(s). lisinopril: 40 mg, 1 tab(s), Oral, Daily, 30 tab(s), 0 Refill(s). metformin: 1,000 mg, 1 tab(s), Oral, BID, 180 tab(s), 0 Refill(s). REASON FOR HOSPITALIZATION: CIERA HAYES is a 69 Years-old Female with a PMHx of HTN, T2DM, HLD. Patient was a direct admit from OSH due to acute cholecystitis. Pt reports pain started suddenly on Thursday and has been constant since. Has had nausea and vomiting. Reports pain is located on the right side of the abdomen. does not radiate. Has not eaten much in those 4 days due to pain. Denies fevers or chills. CT abd/pelvis at OSH consistent with acute cholecystitis. Past surgical history includes total hysterectomy. No blood thinners. SIGNIFICANT FINDINGS: acute cholecystitis HOSPITAL COURSE: Patient was seen and evaluated in the ER on 11/09, found to have acute cholecystitis and was taken to the OR for laparoscopic cholecystectomy. CALI drain was left intraoperatively due to concern for potential necrosis of the CBD. On postop day 1 patient is tolerating regular diet, ambulating unassisted, underwent a formal oxygen desaturation study without any documented requirements for home O2. Pain well-controlled. Patient medically cleared for discharge home, patient to be discharged home with CALI drain, given instructions on how to record and drain the drain. Patient given prescription for short course of antibiotics. Patient to follow-up with the [facility] clinic in 1 week for drain check and postop check. Patient to follow with PCP regarding hyperglycemia and poorly controlled diabetes. The patient was seen and examined on the day of discharge with the following findings: GENERAL: alert, pleasant, conversational. HEENT: normocephalic. oral mucosa moist. CARDIOVASCULAR: RRR. PULMONARY: CTAB. breathing comfortably on room air ABDOMINAL: abdomen is nontender., nondistended. Lap sandra incisions C/D/I. CALI drain right upper quadrant with blood-tinged serosanguineous output. EXTREMITIES: moves all extremities with equal strength NEUROLOGICAL: AxO x3 Given the excellent progress, the patient was determined stable for discharge. ANTICIPATED FOLLOW UP: With: Address: When: trauma clinic [address] second floor, [address] [place] [address] 11/16/2024 9:45 AM Comments: Call to schedule/confirm followup appointment With: Address: When: [facility] [address] [place] [address] [phone] Within 7 to 10 days Comments: Call to schedule appointment for hospital follow up and high blood sugars Dannielle Kim PA-C Trauma, Critical Care, & Emergency General Surgery >30 minutes was spent on the discharge of this patient including final examination of the patient, discussion of the hospital stay, instructions for continuing care to all relevant caregivers, preparation of discharge records, prescriptions and referral forms, and clear identification of reasons to return to clinic or to emergency room. [facility] Comment on above: Result Comment: Elec tronically Signed By: Dannielle Kim PA-C\.br\Date and Time Signed: 11/10/24 13:31 EST\.br\Electronically Co-Signed By: Domenico Loo MD\.br\Date and Time Co-Signed: 11/11/24 17:28 EST Hospital Discharge instructions 11-10-2024 Note Date & Type Note Facility 11-10-2024 Hospital Discharg e instructions Patient Education 11/10/2024 13:18:08 Carbohydrate Counting for Diabetes Mellitus, Adult Carbohydrate Counting for Diabetes Mellitus, Adult Carbohydrate counting is a method of keeping track of how many carbohydrates you eat. Eating carbohydrates increases the amount of sugar (glucose) in the blood. Counting how many carbohydrates you eat improves how well you manage your blood glucose. This, in turn, helps you manage your diabetes. Carbohydrates are measured in grams (g) per serving. It is important to know how many carbohydrates (in grams or by serving size) you can have in each meal. This is different for every person. A dietitian can help you make a meal plan and calculate how many carbohydrates you should have at each meal and snack. What foods contain carbohydrates? Carbohydrates are found in the following foods: Grains, such as breads and cereals. Dried beans and soy products. Starchy vegetables, such as potatoes, peas, and corn. Fruit and fruit juices. Milk and yogurt. Sweets and snack foods, such as cake, cookies, candy, chips, and soft drinks. How do I count carbohydrates in foods? There are two ways to count carbohydrates in food. You can read food labels or learn standard serving sizes of foods. You can use either of these methods or a combination of both. Using the Nutrition Facts label The Nutrition Facts list is included on the labels of almost all packaged foods and beverages in the [place]. It includes: The serving size. Information about nutrients in each serving, including the grams of carbohydrate per serving. To use the Nutrition Facts, decide how many servings you will have. Then, multiply the number of servings by the number of carbohydrates per serving. The resulting number is the total grams of carbohydrates that you will be having. Learning the standard serving sizes of foods When you eat carbohydrate foods that are not packaged or do not include Nutrition Facts on the label, you need to measure the servings in order to count the grams of carbohydrates. Measure the foods that you will eat with a food scale or measuring cup, if needed. Decide how many standard-size servings you will eat. Multiply the number of servings by 15. For foods that contain carbohydrates, one serving equals 15 g of carbohydrates. ?For example, if you eat 2 cups or 10 oz (300 g) of strawberries, you will have eaten 2 servings and 30 g of carbohydrates (2 servings x 15 g = 30 g). For foods that have more than one food mixed, such as soups and casseroles, you must count the carbohydrates in each food that is included. The following list contains standard serving sizes of common carbohydrate-rich foods. Each of these servings has about 15 g of carbohydrates: 1 slice of bread. 1 six-inch (15 cm) tortilla. ? cup or 2 oz (53 g) cooked rice or pasta. cup or 3 oz (85 g) cooked or canned, drained and rinsed beans or lentils. cup or 3 oz (85 g) starchy vegetable, such as peas, corn, or squash. cup or 4 oz (120 g) hot cereal. cup or 3 oz (85 g) boiled or mashed potatoes, or or 3 oz (85 g) of a large baked potato. cup or 4 fl oz (118 mL) fruit juice. 1 cup or 8 fl oz (237 mL) milk. 1 small or 4 oz (106 g) apple. or 2 oz (63 g) of a medium banana. 1 cup or 5 oz (150 g) strawberries. 3 cups or 1 oz (28.3 g) popped popcorn. What is an example of carbohydrate counting? To calculate the grams of carbohydrates in this sample meal, follow the steps shown below. Sample meal 3 oz (85 g) chicken breast. ? cup or 4 oz (106 g) brown rice. cup or 3 oz (85 g) corn. 1 cup or 8 fl oz (237 mL) milk. 1 cup or 5 oz (150 g) strawberries with sugar-free whipped topping. Carbohydrate calculation 1.Identify the foods that contain carbohydrates: Rice. [place]. Milk. Strawberries. 2.Calculate how many servings you have of each food: 2 servings rice. 1 serving corn. 1 serving milk. 1 serving strawberries. 3.Multiply each number of servings by 15 servings rice x 15 g = 30 g. 1 serving corn x 15 g = 15 g. 1 serving milk x 15 g = 15 g. 1 serving strawberries x 15 g = 15 g. 4.Add together all of the amounts to find the total grams of carbohydrates eaten: 30 g + 15 g + 15 g + 15 g = 75 g of carbohydrates total. What are tips for following this plan? Shopping Develop a meal plan and then make a shopping list. Buy fresh and frozen vegetables, fresh and frozen fruit, dairy, eggs, beans, lentils, and whole grains. Look at food labels. Choose foods that have more fiber and less sugar. Avoid processed foods and foods with added sugars. Meal planning Aim to have the same number of grams of carbohydrates at each meal and for each snack time. Plan to have regular, balanced meals and snacks. Where to find more information [place] [employer]: diabetes.org Centers for Disease Control and Prevention: cdc.gov Academy of Nutrition and Dietetics: eatright.org Association of Diabetes Care & Education Specialists: diabeteseducator.org Summary Carbohydrate counting is a method of keeping track of how many carbohydrates you eat. Eating carbohydrates increases the amount of sugar (glucose) in your blood. Counting how many carbohydrates you eat improves how well you manage your blood glucose. This helps you manage your diabetes. A dietitian can help you make a meal plan and calculate how many carbohydrates you should have at each meal and snack. This information is not intended to replace advice given to you by your health care provider. Make sure you discuss any questions you have with your health care provider. Document Revised: 05/08/2021 Document Reviewed: 05/08/2021 [employer] Patient Education 2023 Infer. 11/10/2024 13:17:43 Hyperglycemia, Qrug-te-Ohik Hyperglycemia Hyperglycemia is when the sugar (glucose) level in your blood is too high. High blood sugar can happen to people who have or do not have diabetes. High blood sugar can happen quickly. It can be an emergency. What are the causes? If you have diabetes, high blood sugar may be caused by: Medicines that increase blood sugar or affect your control of diabetes. Getting less physical activity. Overeating. Being sick or injured or having an infection. Having surgery. Stress. Not giving yourself enough insulin (if you are taking it). You may have high blood sugar because you have diabetes that has not been diagnosed yet. If you do not have diabetes, high blood sugar may be caused by: Certain medicines. Stress. A bad illness. An infection. Having surgery. Diseases of the pancreas. What increases the risk? This condition is more likely to develop in people who have risk factors for diabetes, such as: Having a family member with diabetes. Certain conditions in which the body's defense system (immune system) attacks itself. These are called autoimmune disorders. Being overweight. Not being active. Having a condition called insulin resistance. Having a history of: ?Prediabetes. ?Diabetes when . ?Polycystic ovarian syndrome (PCOS). What are the signs or symptoms? This condition may not cause symptoms. If you do have symptoms, they may include: Feeling more thirsty than normal. Needing to pee (urinate) more often than normal. Hunger. Feeling very tired. Blurry eyesight (vision). You may get other symptoms as the condition gets worse, such as: Dry mouth. Pain in your belly (abdomen). Not being hungry (loss of appetite). Breath that smells fruity. Weakness. Weight loss that is not planned. A tingling or numb feeling in your hands or feet. A headache. Cuts or bruises that heal slowly. How is this treated? Treatment depends on the cause of your condition. Treatment may include: Taking medicine to control your blood sugar levels. Changing your medicine or dosage if you take insulin or other diabetes medicines. Lifestyle changes. These may include: ?Exercising more. ?Eating healthier foods. ?Losing weight. Treating an illness or infection. Checking your blood sugar more often. Stopping or reducing steroid medicines. If your condition gets very bad, you will need to be treated in the hospital. Follow these instructions at home: General instructions Take sqgq-xbs-ojbdzst and prescription medicines only as told by your doctor. Do not smoke or use any products that contain nicotine or tobacco. If you need help quitting, ask your doctor. If you drink alcohol: ?Limit how much you have to: ?0 1 drink a day for women who are not . ?0 2 drinks a day for men. ?Know how much alcohol is in a drink. In the [place] one drink equals one 12 oz bottle of beer (355 mL), one 5 oz glass of wine (148 mL), or one 1 oz glass of hard liquor (44 mL). Manage stress. If you need help with this, ask your doctor. Do exercises as told by your doctor. Keep all follow-up visits. Eating and drinking Stay at a healthy weight. Make sure you drink enough fluid when you: ?Exercise. ?Get sick. ?Are in hot temperatures. Drink enough fluid to keep your pee (urine) pale yellow. If you have diabetes: Know the symptoms of high blood sugar. Follow your diabetes management plan as told by your doctor. Make sure you: ?Take insulin and medicines as told. ?Follow your exercise plan. ?Follow your meal plan. Eat on time. Do not skip meals. ?Check your blood sugar as often as told. Make sure you check before and after exercise. If you exercise longer or in a different way, check your blood sugar more often. ?Follow your sick day plan whenever you cannot eat or drink normally. Make this plan ahead of time with your doctor. Share your diabetes management plan with people in your workplace, school, and household. Check your pee for ketones when you are ill and as told by your doctor. Carry a card or wear jewelry that says that you have diabetes. Where to find more information [place] Diabetes Association: www.diabetes.org Contact a doctor if: Your blood sugar level is at or above 240 mg/dL (13.3 mmol/L) for 2 days in a row. You have problems keeping your blood sugar in your target range. You have high blood pressure often. You have signs of illness, such as: ?Feeling like you may vomit (feeling nauseous). ?Vomiting. ?A fever. Get help right away if: Your blood sugar monitor reads high even when you are taking insulin. You have trouble breathing. You have a change in how you think, feel, or act (mental status). You feel like you may vomit, and the feeling does not go away. You cannot stop vomiting. These symptoms may be an emergency. Get medical help right away. Call your local emergency services (911 in the [place] Do not wait to see if the symptoms will go away. Do not drive yourself to the hospital. Summary Hyperglycemia is when the sugar (glucose) level in your blood is too high. High blood sugar can happen to people who have or do not have diabetes. Make sure you drink enough fluids and follow your meal plan. Exercise as often as told by your doctor. Contact your doctor if you have problems keeping your blood sugar in your target range. This information is not intended to replace advice given to you by your health care provider. Make sure you discuss any questions you have with your health care provider. Document Revised: 07/18/2021 Document Reviewed: 07/19/2021 [employer] Patient Education 2023 [employer] 11/10/2024 13:17:36 Pratibha Valadez Drainage Tube Care(CUSTOM) [place], [place] Yao Mckinnon MD, FACS DISCHARGE INSTRUCTIONS CARING FOR YOUR ÁNGEL-VILLARREAL DRAINAGE TUBE You have been discharged with a Ángel-Villarreal drainage tube. This tube will help healing and reduce the risk of infection by removing fluid through your incision. It is attached to a drain or collection device where you will see fluid and blood. A bandage at the incision site will protect the open area from infection. You may feel some burning and pulling from the stitch that holds the tube in place. Your drain will be removed when the amount of drainage lessens, usually 5-7 days after surgery. The leon will be removed in 10-14 days after surgery. HOME CARE Don t sleep on the same side as the tube. Secure the tube and bag inside your clothing. This will prevent the tube form being pulled out. Empty your drain at least three times a day: in the morning, afternoon and before bed. Empty it more often as needed. Strip the tubing as much as possible. Lift the opening on the drain. Drain the fluid into a measuring cup. Record the amount of fluid and time that you empty the drain. Share this information with your doctor on your next visit. Squeeze the bulb with your hands until all the air is out of the bulb. Close the opening. Change the dressing around the tube every day. Wash your hands. Remove the old bandage. You may shower and get the drain site wet. Put a new bandage on the incision and tube site. Place one gauze under the drain tube and one over the drain tube and tape it in place. FOLLOW-UP Make a follow-up appointment with your doctor as directed on your discharge paperwork. WHEN TO CALL YOUR DOCTOR call immediately if you have any of the following: Pain, swelling, or fluid around the tube Stitches that become infected Redness or warmth around the incision Tube that falls out Nausea and vomiting Foul smell from incision site Chills or fever above 100 degrees F Fluid draining from your incision. An incision that does not heal Drainage that changes from light pink to dark red CALI OUTPUT IN CC'S #1 AMAFTERNOONPM #2 AMAFTERNOONPM Written: 911/10/2024 13:17:25 Minimally Invasive Cholecystectomy, Care After, Stvt-ie-Exst Minimally Invasive Cholecystectomy, Care After What can I expect after the procedure? After the procedure, it is common to: Have pain at the areas of surgery. You will be given medicines for pain. Vomit or feel like you may vomit. Feel fullness in the belly (bloating) or have pain in the shoulder. This comes from the gas that was used during the surgery. Follow these instructions at home: Medicines Take kepf-wqt-vczgeov and prescription medicines only as told by your doctor. If you were prescribed an antibiotic medicine, take it as told by your doctor. Do not stop taking it even if you start to feel better. If told, take steps to prevent problems with pooping (constipation). You may need to: ?Drink enough fluid to keep your pee (urine) pale yellow. ?Take medicines. You will be told what medicines to take. ?Eat foods that are high in fiber. These include beans, whole grains, and fresh fruits and vegetables. ?Limit foods that are high in fat and sugar. These include fried or sweet foods. Ask your doctor if you should avoid driving or using machines while you are taking your medicine. Incision care Follow instructions from your doctor about how to take care of your cuts from surgery (incisions). Make sure you: ?Wash your hands with soap and water for at least 20 seconds before and after you change your bandage (dressing). If you cannot use soap and water, use hand acid tank liner. ?Change your bandage. ?Leave stitches (sutures) or skin glue in place for at least 2 weeks. ?Leave tape strips alone unless you are told to take them off. You may trim the edges of the tape strips if they curl up. Do not take baths, swim, or use a hot tub. Ask your doctor about taking showers or sponge baths. Check your incision area every day for signs of infection. Check for: ?More redness, swelling, or pain. ?Fluid or blood. ?Warmth. ?Pus or a bad smell. Activity Rest as told by your doctor. Do not do activities that require a lot of effort. Get up to take short walks every 1 to 2 hours. Ask for help if you feel weak or unsteady. Do not lift anything that is heavier than 10 lb (4.5 kg), or the limit that you are told. Do not play contact sports until your doctor says it is okay. Do not return to work or school until your doctor says it is okay. Return to your normal activities when your doctor says that it is safe. General instructions If you were given a sedative during your procedure, do not drive or use machines until your doctor says that it is safe. A sedative is a medicine that helps you relax. Keep all follow-up visits. Contact a doctor if: You get a rash. You have more redness, swelling, or pain around your incisions. You have fluid or blood coming from your incisions. Your incisions feel warm to the touch. You have pus or a bad smell coming from your incisions. You have a fever. One or more of your incisions breaks open. Get help right away if: You have trouble breathing. You have chest pain. You have pain that is getting worse in your shoulders. You faint or feel dizzy when you stand. You have very bad pain in your belly (abdomen). You feel like you may vomit or you vomit, and this lasts for more than one day. You have leg pain. These symptoms may be an emergency. Get help right away. Call 911. Do not wait to see if the symptoms will go away. Do not drive yourself to the hospital. Summary After your surgery, it is common to have pain at the areas of surgery. You may also vomit or feel fullness in the belly. Follow your doctor's instructions about medicine, activity restrictions, and caring for your surgery areas. Do not do activities that require a lot of effort. Contact a doctor if you have a fever or other signs of infection, such as more redness, swelling, or pain around your incisions. Get help right away if you have chest pain, increasing pain in the shoulders, or trouble breathing. This information is not intended to replace advice given to you by your health care provider. Make sure you discuss any questions you have with your health care provider. Document Revised: 04/08/2022 Document Reviewed: 04/08/2022 [employer] Patient Education 2023 Infer. 11/10/2024 13:17:22 Cholecystitis Cholecystitis Cholecystitis is inflammation of the gallbladder. Cholecystitis is often called a gallbladder attack. The gallbladder is a pear-shaped organ that lies beneath the liver on the right side of the body. The gallbladder stores a fluid that helps the body digest fats (bile). If bile builds up in your gallbladder, your gallbladder becomes inflamed and can develop a serious infection. This condition may occur suddenly. Cholecystitis is a serious condition and requires treatment. What are the causes? The most common cause of this condition is gallstones. Gallstones can block the tube (duct) that carries bile out of your gallbladder. This causes bile to build up. Other causes include: Damage to the gallbladder due to decreased blood flow. Infection in the bile duct. Scars, kinks, or adhesions in the bile duct. Tumors in the liver, pancreas, or gallbladder. What increases the risk? You are more likely to develop this condition if: You are female and between the ages of 55 62. You take control pills or use estrogen. You take certain medicines that increase your likelihood of developing gallstones. You are obese. You have a severe reaction to an infection (sepsis). The infection may be bacterial, fungal, parasitic, or viral. You have been hospitalized due to trauma, such as a burn or critical illness. You have not eaten or drank for a long period of time (prolonged fasting). What are the signs or symptoms? Symptoms of this condition include: Tenderness in the upper right part of the abdomen. A lump over the gallbladder. Bloating in the abdomen. Nausea. Vomiting. Fever. Chills. How is this diagnosed? This condition is diagnosed with a medical history and physical exam. You may also have other tests, including: Imaging tests, such as: ?An ultrasound of the abdomen. ?A CT scan of the abdomen. ?A gallbladder nuclear scan (HIDA cholescintigraphy). This allows your health care provider to see the bile moving from your liver to your gallbladder and to your small intestine. ?MRI. Blood tests, such as: ?A complete blood count. The white blood cell count may be higher than normal. ?C-reactive protein (CRP) test. The level of CRP will be higher if there is an infection. ?Liver function tests. Certain types of gallstones cause some results to be higher than normal. How is this treated? Treatment may include: Pain medicine and IV fluids. Not eating or drinking (fasting). This helps to take stress off of your gallbladder. Antibiotic medicine. This is usually given through an IV. Surgery to remove your gallbladder (cholecystectomy). Gallbladder drainage. In this procedure, a tube is placed into the gallbladder to drain fluid. This may be done for people with moderate to severe cholecystitis who cannot have surgery. Follow these instructions at home: Medicines Take nhen-ngj-tesdzej and prescription medicines only as told by your health care provider. If you were prescribed an antibiotic medicine, take it as told by your health care provider. Do not stop taking the antibiotic even if you start to feel better. General instructions Follow instructions from your health care provider about what to eat or drink. When you are allowed to eat, avoid eating or drinking anything that triggers your symptoms. Do not use any products that contain nicotine or tobacco. These products include cigarettes, chewing tobacco, and vaping devices, such as e-cigarettes. If you need help quitting, ask your health care provider. Keep all follow-up visits. This is important. Contact a health care provider if: Your pain is not controlled with medicine. You have a fever. Get help right away if: Your pain moves to another part of your abdomen or to your back. You continue to have symptoms or you develop new symptoms even with treatment. These symptoms may be an emergency. Get help right away. Call 911. Do not wait to see if the symptoms will go away. Do not drive yourself to the hospital. Summary Cholecystitis is inflammation of the gallbladder. The most common cause of this condition is gallstones. Gallstones can block the tube (duct) that carries bile out of your gallbladder. Common symptoms include tenderness in the abdomen, nausea, vomiting, fever, and chills. This condition is treated with fasting, pain medicine, surgery to remove the gallbladder, antibiotic medicines, and gallbladder drainage. Follow your health care provider's instructions for eating and drinking. Avoid eating anything that triggers your symptoms. This information is not intended to replace advice given to you by your health care provider. Make sure you discuss any questions you have with your health care provider. Document Revised: 04/08/2022 Document Reviewed: 04/08/2022 [employer] Patient Education 2023 Infer. Follow Up Care 11/08/2024 20:07:12 With:MARIETTA WASHINGTON CNP Address: [address] [place] [phone] When:11/15/2024 10:30:00 With:trauma clinic Address: [address] [place] [address] 3, second floor, [address] [place] [address]- [phone] When:11/16/2024 09:45:00 Comments:Call to schedule/confirm followup appointment [facility] Clinical Note 11-09-2024 Note Date & Type Note Facility 11-09-2024 Note Progress Note-Physic sandra Patient: CIERA HAYES Age: 69 years Sex: Female : 1955 Associated Diagnoses: None Author: Braeden Kumar Jr., DO Postoperative Information Postoperative disposition: Postoperative disposition: Home. Optimetrix number: Optimetrix number [id number]. Anesthetic utilized: General. Physical Examination Vital Signs 11/09/2024 16:55 EST Heart Rate Monitored 91 bpm Respiratory Rate Monitored 19 br/min Systolic Blood Pressure 96 mmHg Diastolic Blood Pressure 55 mmHg LOW Blood Pressure Location Left arm Mean Arterial Pressure, Cuff 69 mmHg SpO2 98 % 11/09/2024 16:29 EST Heart Rate Monitored 89 bpm Respiratory Rate Monitored 22 br/min Systolic Blood Pressure 112 mmHg Diastolic Blood Pressure 52 mmHg LOW Blood Pressure Location Left arm Mean Arterial Pressure, Cuff 72 mmHg SpO2 94 % 11/09/2024 16:24 EST Heart Rate Monitored 92 bpm Respiratory Rate Monitored 24 br/min Systolic Blood Pressure 118 mmHg Diastolic Blood Pressure 58 mmHg LOW Blood Pressure Location Left arm Mean Arterial Pressure, Cuff 78 mmHg SpO2 100 % 11/09/2024 16:19 EST Temperature Temporal Artery 36 DegC LOW Heart Rate Monitored 91 bpm Respiratory Rate Monitored 22 br/min Systolic Blood Pressure 106 mmHg Diastolic Blood Pressure 60 mmHg Blood Pressure Location Left arm Mean Arterial Pressure, Cuff 75 mmHg SpO2 100 % Pain Assessment: Controlled. General: Awake, Alert, Appropriate. Respiratory: Adequate air exchange, Non-labored. Cardiovascular: Stable, Normal peripheral perfusion. Neurological: Neurologic exam at baseline. No changes.. Assessment Anesthetic outcome No anesthetic complications noted. No nausea/vomiting. Review / Management Condition: Stable. Plan Transfer/Discharge: Transfer/Discharge Discharge when meets criteria ( From PACU to Ambulatory Surgery Unit, and To home ). [facility] Comment on above: Result Comment: Elec tronically Signed By: Braeden Kumar Jr., DO\.br\Date and Time Signed: 11/09/24 17:15 EST Evaluation + Plan note 11-09-2024 Note Date & Type Note Facility 11-09-2024 Evaluation + Plan note Extrac antolin from: Title:ANES Post-operative Note - General Author: Braeden Kumar Jr., DO Date:11/09/24 Plan Transfer/Discharge: Transfer/Discharge Discharge when meets criteria ( From PACU to Ambulatory Surgery Unit, and To home ). Extracted from: Title:ANES Pre-operative Note - Adult Author:Braeden Croft Jr., DO Date:11/09/24 Patient: CIERA HAYES Age: 69 years Sex: Female : 1955 Associated Diagnoses: None Author: Braeden Kumar Jr., DO Preoperative Information Anesthesia Preop Info NPO since midnight Anesthesia history: Patient history: No prior anesthetic problems. Informed consent: Signed by patient. Re-evaluation prior to induction: Initial evaluation reviewed: No significant change. Health Status Allergies: Allergic Reactions (Selected) No Known Allergies, Allergies (1) ActiveSeverityReaction No Known AllergiesNone Documented Current medications: (Selected) Inpatient Medications Ordered HYDROmorphone 0.5 mg/0.5 mL injectable solution: 0.5 mg = 0.5 mL, Injection, IV Push, q4hr PRN Pain, Routine, Start date 11/09/24 3:39:00 EST, 11/09/24 3:39:00 EST HYDROmorphone 1 mg/mL injectable solution: 0.4 mg = 0.4 mL, Injection, IV Push, q4min PRN Pain for 5 dose(s), Stop date Limited # of times, Routine, Start date 11/09/24 12:37:00 EST, 11/09/24 12:37:00 EST Lactated Ringers IV Jess 1000 mL 1,000 mL: 1,000 mL, IV, 100 mL/hr, Routine, Start date 11/09/24 12:37:00 EST, 10 hour(s), Total volume (mL): 1,000, 106.9 kg, 2.14, m2 Lactated Ringers IV Jess 1000 mL 1,000 mL: 1,000 mL, IV, 100, Routine, Start date 11/09/24 3:43:00 EST, Total volume (mL): 1,000, 106.9 kg, 2.14, m2 Sodium Chloride 0.9% IV Jess 1000 mL 1,000 mL: 1,000 mL, IV, 150 mL/hr, Routine, Start date 11/09/24 10:14:00 EST, 6.7 hour(s), Total volume (mL): 1,000, 106.9 kg, 2.14, m2 Vitamin D3 1000 intl units (25 mcg) Tab: 25 mcg = 1 tab(s), Tab, Oral, Daily, Routine, Start date 11/09/24 9:00:00 EST, 11/09/24 7:27:00 EST acetaminophen 325 mg Tab: 975 mg = 3 tab(s), Tab, Oral, q6hr, Routine, Start date 11/09/24 6:00:00 EST, 11/09/24 6:00:00 EST aspirin 81 mg Oral EC Tab: 81 mg = 1 tab(s), Tab-EC, Oral, Daily, Routine, Start date 11/09/24 9:00:00 EST, 11/09/24 7:27:00 EST atorvastatin 40 mg Tab: 40 mg = 1 tab(s), Tab, Oral, Daily, Routine, Start date 11/09/24 9:00:00 EST, 11/09/24 7:27:00 EST enoxaparin 40 mg/0.4 mL SC Jess: 40 mg = 0.4 mL, Injection, SubCutaneous, Daily, Routine, Start date 11/09/24 9:00:00 EST, 11/09/24 7:30:00 EST lisinopril 20 mg Tab: 40 mg = 2 tab(s), Tab, Oral, Daily, Routine, Start date 11/09/24 9:00:00 EST, 11/09/24 7:27:00 EST oxyCODONE 5 mg Tab: 10 mg = 2 tab(s), Tab, Oral, q4hr PRN Pain 8-10, Routine, Start date 11/09/24 7:30:00 EST, Pain score 8-10. oxyCODONE 5 mg Tab: 5 mg = 1 tab(s), Tab, Oral, q4hr PRN Pain 4-7, Routine, Start date 11/09/24 7:30:00 EST, Pain score 4-7. piperacillin-tazobactam additive + Sodium Chloride 0.9% intravenous solution 100 mL: 3.375 gm = 1 EA, Injection, IV Piggyback, q6hrFT, Routine, Start date 11/09/24 6:00:00 EST, 200 mL/hr, Infuse over 30 minute(s) senna 8.6 mg Tab: 8.6 mg = 1 tab(s), Tab, Oral, Once a day (at bedtime), Routine, Start date 11/09/24 21:00:00 EST, 11/09/24 7:30:00 EST Documented Medications Documented Garlic: Refill(s) 0 Vitamin D3 1000 intl units (25 mcg) Tab: 25 mcg = 1 tab(s), Oral, Daily, Refills(s) 0 aspirin 81 mg Oral EC Tab: 81 mg = 1 tab(s), Oral, Daily, # 30 tab(s), Refills(s) 0 atorvastatin 40 mg Tab: 40 mg = 1 tab(s), Oral, Daily, # 30 tab(s), Refills(s) 0 lisinopril 40 mg Tab: 40 mg = 1 tab(s), Oral, Daily, # 30 tab(s), Refills(s) 0 metformin 1000 mg Tab: 1,000 mg = 1 tab(s), Oral, BID, # 180 tab(s), Refills(s) 0, Home Medications (6) Active aspirin 81 mg Oral EC Tab 81 mg = 1 tab(s), Oral, Daily atorvastatin 40 mg Tab 40 mg = 1 tab(s), Oral, Daily Garlic lisinopril 40 mg Tab 40 mg = 1 tab(s), Oral, Daily metformin 1000 mg Tab 1,000 mg = 1 tab(s), Oral, BID Vitamin D3 1000 intl units (25 mcg) Tab 25 mcg = 1 tab(s), Oral, Daily , Medications (15) Active Scheduled: (8) acetaminophen 325 mg Tab UD [F] 975 mg 3 tab(s), Oral, q6hr aspirin 81 mg Oral EC Tab [F] 81 mg 1 tab(s), Oral, Daily atorvastatin 40 mg Tab [F] 40 mg 1 tab(s), Oral, Daily cholecalciferol 1000 intl units (25 microgram) Tab [F] 25 mcg 1 tab(s), Oral, Daily enoxaparin 40 mg/0.4 mL SC Jess [F] 40 mg 0.4 mL, SubCutaneous, Daily lisinopril 20 mg Tab [F] 40 mg 2 tab(s), Oral, Daily piperacillin-tazobactam 3 g-0.375 g + Sodium Chloride 0.9% Minibag 100 mL 3.375 gm 1 EA, IV Piggyback, q6hrFT senna 8.6 mg Tab [F] 8.6 mg 1 tab(s), Oral, Once a day (at bedtime) Continuous: (3) Lactated Ringers 1,000 mL 1,000 mL, IV Lactated Ringers 1,000 mL 1,000 mL, IV, 100 mL/hr Sodium Chloride 0.9% 1,000 mL 1,000 mL, IV, 150 mL/hr PRN: (4) HYDROmorphone 0.5 mg/0.5 mL JESS [F] 0.5 mg 0.5 mL, IV Push, q4hr HYDROmorphone 1 mg/mL SOLN [F] 0.4 mg 0.4 mL, IV Push, q4min oxyCODONE 5 mg Tab UD [F] 5 mg 1 tab(s), Oral, q4hr oxyCODONE 5 mg Tab UD [F] 10 mg 2 tab(s), Oral, q4hr Problem list: No problem items selected or recorded. Histories Past Medical History: No active or resolved past medical history items have been selected or recorded. Procedure history: No active procedure history items have been selected or recorded. Social History Social & Psychosocial Habits No Data Available . Physical Examination Vital Signs 11/09/2024 11:37 EST Heart Rate Monitored 79 bpm SpO2 95 % 11/09/2024 11:37 EST Systolic Blood Pressure 106 mmHg Diastolic Blood Pressure 72 mmHg Mean Arterial Pressure, Monitered 83 mmHg 11/09/2024 11:36 EST Temperature Axillary 36.3 DegC 11/09/2024 8:33 EST Heart Rate Monitored 94 bpm SpO2 98 % 11/09/2024 8:32 EST Systolic Blood Pressure 122 mmHg Diastolic Blood Pressure 63 mmHg 11/09/2024 8:31 EST Systolic Blood Pressure 122 mmHg Diastolic Blood Pressure 63 mmHg Mean Arterial Pressure, Monitered 83 mmHg 11/09/2024 8:31 EST Temperature Axillary 36.5 DegC 11/09/2024 3:00 EST Temperature Oral 36.9 DegC Peripheral Pulse Rate 93 bpm Respiratory Rate 20 br/min Systolic Blood Pressure 135 mmHg Diastolic Blood Pressure 81 mmHg Mean Arterial Pressure, Cuff 99 mmHg Hourly Rounding Yes Promise to Return Yes SpO2 95 % Measurements from flowsheet : Measurements 11/09/2024 11:23 EST Height/Length Measured 154.94 cm Weight Measured 106.9 kg 11/09/2024 3:05 EST Height/Length Measured 154.94 cm BSA Measured 2.14 m2 Body Mass Index Measured 44.53 kg/m2 Weight Measured 106.9 kg 11/09/2024 3:00 EST Height/Length Measured 154.94 cm Height/Length Dosing 154.9 cm Weight Dosing 106.9 kg Weight Measured 106.9 kg Airway: Respiratory: Lungs are clear to auscultation, Respirations are non-labored. Cardiovascular: Regular rhythm. Review / Management Results review: Lab results 11/09/2024 12:05 EST Glucose Cap 215 mg/dL HI POC Device SN [id number] POC User ID [id number] POC Username MAG SRIVASTAVA 11/09/2024 11:39 EST Glucose Cap 216 mg/dL HI POC Device SN [id number] POC User ID [id number] POC Username KRISTIN ALICEA 11/09/2024 7:44 EST WBC 20.1 E9/L HI RBC 4.1 E12/L LOW HGB 12.4 gm/dL Hct 36.0 % MCV 87.9 fL MCH 30.4 pg MCHC 34.6 gm/dL RDW 13.6 % Platelet 168.0 E9/L MPV 8.8 fL Segs Man 89.0 % HI Band Man 1.0 % Lymph Man 7.0 % LOW Monocyte Man 3.0 % LOW Eos Man 0.0 % Basophil Man 0.0 % Segs Abs Man 18.1 E9/L NA Lymph Abs Man 1.4 E9/L [place] Abs Man 0.6 E9/L Eos Abs Man 0.0 E9/L Basophil Abs Man 0.0 E9/L Glucose Lvl 222 mg/dL HI BUN 21 mg/dL Creatinine 0.8 mg/dL eGFR 80 mL/min/1.73 m2 BUN/Creat Ratio 26 HI Sodium Lvl 132 mmol/L LOW Potassium Lvl 3.8 mmol/L Chloride 97 mmol/L LOW CO2 27 mmol/L AGAP 12 mEq/L Calcium Lvl 9.1 mg/dL Alk Phos 63 Int._Unit/L ALT 44 Int._Unit/L AST 45 Int._Unit/L HI Total Protein 6.7 gm/dL Albumin Lvl 3.7 gm/dL Globulin 3.0 gm/dL A/G Ratio 1.2 Bili Total 2.0 mg/dL HI Bili Direct 0.7 mg/dL HI Bili Indirect 1.3 mg/dL HI ABO/Rh O POS ABSC Gel Interp Negative . ECG interpretation: SINUS RHYTHM LOW QRS VOLTAGE IN PRECORDIAL LEADS [QRS DEFLECTION < 1.0 mV IN CHEST LEADS] SEPTAL MYOCARDIAL INFARCTION [40+ ms Q WAVE IN V1/V2], OF INDETERMINATE AGE. Plan [place] [employer] (ASA) physical status classification: Class III, E. Anesthetic Preoperative Plan: Anesthesia General. Addendum by Braeden Kumar Jr., DO on J anuary 2024 12:39 EST Mallampati 3-4 [facility] Clinical Note 11-09-2024 Note Date & Type Note Facility 11-09-2024 Note Progress Note-Physic sandra Patient: CIERA HAYES Age: 69 years Sex: Female : 1955 Associated Diagnoses: None Author: Braeden Kumar Jr., DO Preoperative Information Anesthesia Preop Info NPO since midnight Anesthesia history: Patient history: No prior anesthetic problems. Informed consent: Signed by patient. Re-evaluation prior to induction: Initial evaluation reviewed: No significant change. Health Status Allergies: Allergic Reactions (Selected) No Known Allergies, Allergies (1) Active Severity Reaction No Known Allergies None Documented Current medications: (Selected) Inpatient Medications Ordered HYDROmorphone 0.5 mg/0.5 mL injectable solution: 0.5 mg = 0.5 mL, Injection, IV Push, q4hr PRN Pain, Routine, Start date 11/09/24 3:39:00 EST, 11/09/24 3:39:00 EST HYDROmorphone 1 mg/mL injectable solution: 0.4 mg = 0.4 mL, Injection, IV Push, q4min PRN Pain for 5 dose(s), Stop date Limited # of times, Routine, Start date 11/09/24 12:37:00 EST, 11/09/24 12:37:00 EST Lactated Ringers IV Jess 1000 mL 1,000 mL: 1,000 mL, IV, 100 mL/hr, Routine, Start date 11/09/24 12:37:00 EST, 10 hour(s), Total volume (mL): 1,000, 106.9 kg, 2.14, m2 Lactated Ringers IV Jess 1000 mL 1,000 mL: 1,000 mL, IV, 100, Routine, Start date 11/09/24 3:43:00 EST, Total volume (mL): 1,000, 106.9 kg, 2.14, m2 Sodium Chloride 0.9% IV Jess 1000 mL 1,000 mL: 1,000 mL, IV, 150 mL/hr, Routine, Start date 11/09/24 10:14:00 EST, 6.7 hour(s), Total volume (mL): 1,000, 106.9 kg, 2.14, m2 Vitamin D3 1000 intl units (25 mcg) Tab: 25 mcg = 1 tab(s), Tab, Oral, Daily, Routine, Start date 11/09/24 9:00:00 EST, 11/09/24 7:27:00 EST acetaminophen 325 mg Tab: 975 mg = 3 tab(s), Tab, Oral, q6hr, Routine, Start date 11/09/24 6:00:00 EST, 11/09/24 6:00:00 EST aspirin 81 mg Oral EC Tab: 81 mg = 1 tab(s), Tab-EC, Oral, Daily, Routine, Start date 11/09/24 9:00:00 EST, 11/09/24 7:27:00 EST atorvastatin 40 mg Tab: 40 mg = 1 tab(s), Tab, Oral, Daily, Routine, Start date 11/09/24 9:00:00 EST, 11/09/24 7:27:00 EST enoxaparin 40 mg/0.4 mL SC Jess: 40 mg = 0.4 mL, Injection, SubCutaneous, Daily, Routine, Start date 11/09/24 9:00:00 EST, 11/09/24 7:30:00 EST lisinopril 20 mg Tab: 40 mg = 2 tab(s), Tab, Oral, Daily, Routine, Start date 11/09/24 9:00:00 EST, 11/09/24 7:27:00 EST oxyCODONE 5 mg Tab: 10 mg = 2 tab(s), Tab, Oral, q4hr PRN Pain 8-10, Routine, Start date 11/09/24 7:30:00 EST, Pain score 8-10. oxyCODONE 5 mg Tab: 5 mg = 1 tab(s), Tab, Oral, q4hr PRN Pain 4-7, Routine, Start date 11/09/24 7:30:00 EST, Pain score 4-7. piperacillin-tazobactam additive + Sodium Chloride 0.9% intravenous solution 100 mL: 3.375 gm = 1 EA, Injection, IV Piggyback, q6hrFT, Routine, Start date 11/09/24 6:00:00 EST, 200 mL/hr, Infuse over 30 minute(s) senna 8.6 mg Tab: 8.6 mg = 1 tab(s), Tab, Oral, Once a day (at bedtime), Routine, Start date 11/09/24 21:00:00 EST, 11/09/24 7:30:00 EST Documented Medications Documented Garlic: Refill(s) 0 Vitamin D3 1000 intl units (25 mcg) Tab: 25 mcg = 1 tab(s), Oral, Daily, Refills(s) 0 aspirin 81 mg Oral EC Tab: 81 mg = 1 tab(s), Oral, Daily, # 30 tab(s), Refills(s) 0 atorvastatin 40 mg Tab: 40 mg = 1 tab(s), Oral, Daily, # 30 tab(s), Refills(s) 0 lisinopril 40 mg Tab: 40 mg = 1 tab(s), Oral, Daily, # 30 tab(s), Refills(s) 0 metformin 1000 mg Tab: 1,000 mg = 1 tab(s), Oral, BID, # 180 tab(s), Refills(s) 0, Home Medications (6) Active aspirin 81 mg Oral EC Tab 81 mg = 1 tab(s), Oral, Daily atorvastatin 40 mg Tab 40 mg = 1 tab(s), Oral, Daily Garlic lisinopril 40 mg Tab 40 mg = 1 tab(s), Oral, Daily metformin 1000 mg Tab 1,000 mg = 1 tab(s), Oral, BID Vitamin D3 1000 intl units (25 mcg) Tab 25 mcg = 1 tab(s), Oral, Daily , Medications (15) Active Scheduled: (8) acetaminophen 325 mg Tab UD [F] 975 mg 3 tab(s), Oral, q6hr aspirin 81 mg Oral EC Tab [F] 81 mg 1 tab(s), Oral, Daily atorvastatin 40 mg Tab [F] 40 mg 1 tab(s), Oral, Daily cholecalciferol 1000 intl units (25 microgram) Tab [F] 25 mcg 1 tab(s), Oral, Daily enoxaparin 40 mg/0.4 mL SC Jess [F] 40 mg 0.4 mL, SubCutaneous, Daily lisinopril 20 mg Tab [F] 40 mg 2 tab(s), Oral, Daily piperacillin-tazobactam 3 g-0.375 g + Sodium Chloride 0.9% Minibag 100 mL 3.375 gm 1 EA, IV Piggyback, q6hrFT senna 8.6 mg Tab [F] 8.6 mg 1 tab(s), Oral, Once a day (at bedtime) Continuous: (3) Lactated Ringers 1,000 mL 1,000 mL, IV Lactated Ringers 1,000 mL 1,000 mL, IV, 100 mL/hr Sodium Chloride 0.9% 1,000 mL 1,000 mL, IV, 150 mL/hr PRN: (4) HYDROmorphone 0.5 mg/0.5 mL JESS [F] 0.5 mg 0.5 mL, IV Push, q4hr HYDROmorphone 1 mg/mL SOLN [F] 0.4 mg 0.4 mL, IV Push, q4min oxyCODONE 5 mg Tab UD [F] 5 mg 1 tab(s), Oral, q4hr oxyCODONE 5 mg Tab UD [F] 10 mg 2 tab(s), Oral, q4hr Problem list: No problem items selected or recorded. Histories Past Medical History: No active or resolved past medical history items have been selected or recorded. Proc (more content not included)... [facility] Comment on above: Result Comment: Elec tronically Signed By: Braeden Kumar Jr., DO\.zuyl\Date and Time Signed: 11/09/24 12:39 EST Hospital course Narrative Note Date & Type Note Facility Hospital course Narrative No data available for this section [facility] Hospital Discharge instructions Note Date & Type Note Facility Hospital Discharge instructions No data available for this section [facility] Progress note Note Date & Type Note Facility Progress note No data available for this section [facility] Summary Purpose Family History No Family History Records FoundNo Family History Records FoundNo Family History Records FoundNo Family History Records FoundNo Family History Records FoundNo Family History Records FoundNo Family History Records FoundNo Family History Records FoundNo Family History Records FoundNo Family History Records FoundNo Family History Records FoundNo Family History Records FoundNo Family History Records FoundNo Family History Records FoundNo Family History Records FoundNo Family History Records FoundNo Family History Records FoundNo Family History Records FoundNo Family History Records Found No data available for this section No Family History Records FoundNo Family History Records FoundNo Family History Records Found No data available for this section No Family History Records Found Advance Directives No Advanced Directives Records FoundNo Advanced Directives Records FoundNo Advanced Directives Records FoundNo Advanced Directives Records FoundNo Advanced Directives Records FoundNo Advanced Directives Records FoundNo Advanced Directives Records FoundNo Advanced Directives Records FoundNo Advanced Directives Records FoundNo Advanced Directives Records FoundNo Advanced Directives Records FoundNo Advanced Directives Records FoundNo Advanced Directives Records FoundNo Advanced Directives Records FoundNo Advanced Directives Records FoundNo Advanced Directives Records FoundNo Advanced Directives Records FoundNo Advanced Directives Records FoundNo Advanced Directives Records FoundNo Advanced Directives Records FoundNo Advanced Directives Records FoundNo Advanced Directives Records FoundNo Advanced Directives Records Found Additional Source Comments INFORMATION SOURCE (unrecogn ized section and content) DATE CREATED AUTHOR 01/05/2023 [facility] DATE CREATED AUTHOR AUTHOR'S ORGANIZ ATION 11/10/2024 [facility] DATE CREATED AUTHOR AUTHOR'S ORGANIZ ATION 11/11/2024 [facility] DATE CREATED AUTHOR AUTHOR'S ORGANIZ ATION 11/12/2024 [facility] DATE CREATED AUTHOR AUTHOR'S ORGANIZ ATION 11/15/2024 [facility] DATE CREATED AUTHOR AUTHOR'S ORGANIZ ATION 11/18/2024 [facility] Patient Care team informatio n (unrecognized section and content) Personnel Name: MARIETTA WASHINGTON CNP Address: Address: [address] [place] [address] MEÑO Brooks [address] Personnel Name: MARIETTA WASHINGTON CNP Address: Address: [address] [place] [address] FOR RECORDS PERTAINING TO PATIENTS WHO ARE OR HAVE BEEN ENROLLED IN A CHEMICAL DEPENDENCY/SUBSTANCEABUSE PROGRAM, SOME INFORMATION MAY BE OMITTED. This clinical summary was aggregated from multiple sources. Caution should be exercised in using it in the provision of clinical care. This summary normalizes information from multiple sources, and as a consequence, information in this document may materially change the coding, format and clinical context of patient data. In addition, data may be omitted in some cases. CLINICAL DECISIONS SHOULD BE BASED ON THE PRIMARY CLINICAL RECORDS. [facility]. provides no warranty or guarantee of the accuracy or completeness of information in this document.
== END 2025-01-03 09:53 | disposition home or self-care (01) ==
LOC: MAMMO 09:52
PROVIDERS: PCP Nurse Practitioner Family; Visit Provider Nurse Practitioner Family
DX: Z12.31 Encounter for screening mammogram for malignant neoplasm of breast (principal); Z80.3 Family history of malignant neoplasm of breast; Z80.0 Family history of malignant neoplasm of digestive organs; Z80.8 Family history of malignant neoplasm of other organs or systems
CPT/HCPCS: 77063; 77067

== ENCOUNTER 2025-03-03 09:17 | Outpatient (OUT) | payer MEDICARE, SELFPAY ==
[2025-03-03 09:32] LABS: Basophils Absolute Auto 0.1 10^3/uL (0.0-0.1); Basophils Percent Auto 0.7 % (0.2-2.0); Eosinophils Absolute Auto 0.2 10^3/uL (0.0-0.7); Eosinophils Percent Auto 3.4 % (0.9-7.0); Hematocrit 40.3 % (36.0-48.0); Immature Granulocytes Abs Auto 0.01 10^3/uL (0.00-0.03); Immature Granulocytes Pct Auto 0.1 % (0.0-0.5); Lymphocytes Absolute Auto 2.5 10^3/uL (1.2-3.8); Mean Corpuscular HGB Conc 32.3 g/dL (29.9-35.2); Mean Corpuscular Hemoglobin 28.4 pg (26.7-34.0); Mean Platelet Volume 10.7 fL (9.5-13.5); Monocytes Absolute Auto 0.4 10^3/uL (0.3-0.8); Monocytes Percent Auto 5.9 % (1.7-12.0); Neutrophils Absolute Auto 3.7 10^3/uL (1.4-6.5); Neutrophils Percent Auto 53.9 % (43.0-75.0); Platelet Count 175 10^3/uL (150-450); Red Blood Count 4.58 10^6/uL (4.20-5.40); Red Cell Distribution Width 15.8 % (11.0-15.0); White Blood Count 6.8 10^3/uL (4.0-11.0)
--- OUTSIDE RECORDS SUMMARY | 2025-03-03 09:34 | XMS_ITS | CCD ---
Author Organization [facility] Care Team Providers Care Maintenance Data Analyst Name Role Phone MARIETTA WASHINGTON Admitting Unavailable [...] Admitting Unavailable MARIETTA WASHINGTON Primary Care Physician MD Domenico Loo Attending Unavailable MD Domenico [...] 11/10/24 Stop Date: 11/13/24 Status: Ordered sennosides, alf 8.6 mg oral tablet (2 sources) Start: [...] zoster vaccine, inactivated 04/16/2023 Recorded SARS-CoV-2 (COVID-19) [id number].[id number] 08/21/2022 Recorded 2024-11-16: TPV65 SARS-CoV-2 (COVID-19) mRNA-1273 vaccine 10/23/2021 Recorded 2024-11-16: TPV65 SARS-CoV-2 (COVID-19) mRNA-1273 vaccine 01/12/2021 Recorded 2024-11-16: TPV65 SARS-CoV-2 (COVID-19) mRNA-1273 vaccine 12/15/2020 Recorded 2024-11-16: TPV65 influenza virus vaccine, inactivated 07/21/2017 Recorded pneumococcal 23-valent vaccine 03/19/2010 Recorded Normal [facility] Comment on above: Result Comment: Elec tronically Signed By: Dannielle Kim PA-C\.br\Date and Time Signed: 11/16/24 11:17 EST\.br\Electronically Co-Signed By: Lita KING, Tulio López\.br\Date and Time Co-Signed: 11/16/24 11:31 EST Surgical Pathology Reporton 11-14-2024 Surgical Pathology Report [facility] [address] [place] [address]- Surgical Pathology Report Collected Date/Time: 11/09/2024 14:16 [...] 1 - Cystic duct region 2-6 - Power Lineman Technician portion of the remainder of gallbladder (DC) DC:[facility] Microscopic Description Microscopic examination performed unless gross only specified. This report was transcribed using voice recognition technology and might contain unintended computerized straightedge machine operator helper errors. Normal [facility] Comment on above: Performed By: #### 4 [id number] #### [facility] [address] [place] [address] ED Clinical Summaryon 2024 ED Clinical Summary ED Clinical Summary [address] [address] ED Clinical Summary Person Information Name: CIERA HAYES Connie/[facility] Age: 69 Years : 1955 Sex: Female Language: Telugu PCP: MARIETTA WASHINGTON CNP Marital Status: Visit [...] 11/11/2024 12:14:46 11/11/2024 12:14:46 ADDRESS: [address] [phone] PHYS DOC NOTES: MEDICAL INFORMATION: Prescriptions Given: [...] Follow up: With: Address: When: Domenico Bean, [facility] [address], [facility] [address] [place] [phone] Business (1) In 5 days 11/16/2024 With: Address: When: MARIETTA WASHINGTON [address], [facility] [place] [phone] Business (1) In 3 days DIAGNOSIS: Visit for wound check [facility] ED Note-Nursingon 11-11-2024 ED Note-Nursing ED Note-Nursing RN sent pt home with x3 t-sponge dressings and tape per Dr. Loo's request Normal [facility] ED Note-Physicianon 11-11-19 ED Note-Physician ED [...] bedtime), PRN Follow-up With When Contact Information Dmoenico Loo In 5 days 11/16/2024 EST [facility], [facility] [address] [address] [phone] Business (1) Additional Instructions: MARIETTA WASHINGTON In 3 days [address], [facility] [place] [address] [phone] Business (1) Additional Instructions: Problem List/Past Medical [...] Diagnostic Results No qualifying data available. Normal [facility] Comment on above: Result Comment: Elec tronically Signed By: Jose Issa DO\.br\Date and Time Signed: 11/11/24 11:43 EST ED Patient Education Noteon 11-11-2024 ED Patient Education Note ED Patient Education Note Normal [facility] ED Patient Summaryon 025 ED Patient Summary ED Patient Summary [place] [id number] Patient Discharge Instructions Person Information Name: CIERA HAYES Age: 69 Years Arrival Date: 11/11/2024 10:55:52 Discharge Diagnosis: Visit for wound check Primary Care Physician: MARIETTA WASHINGTON CNP Provider Information Primary Provider: Jose Issa DO Advanced Lodge Attendant:None The exam and treatment you received in the Emergency Department were for an urgent problem and are not intended as complete care. It is important that you follow up with a doctor, nurse practitioner, or physician???s wellness assistant for ongoing care. If your symptoms [...] Follow-up Instructions: With: Address: When: Domenico Loo [address] [place] [address], [address], [place] [phone] Business (1) In 5 days 11/16/2024 With: Address: When: MARIETTA WASHINGTON [address] [place] [address] [phone] Business (1) In 3 days In the event that this physician does not participate in your insurance network, please consult with your insurance company to find a nearby participating provider. Patient Education Materials: A MESSAGE TO ALL PATIENTS REGARDING OPIOIDS PRESCRIPTION OPIOIDS: WHAT YOU NEED TO KNOW Prescription opioids can be used to help relieve loaqtzhv-sv-emxvye pain and are often prescribed following a [...] you andie (more content not included)... Normal [facility] Main OR Intraoperative Recor don 11-11-2024 Main OR Intraoperative Record Main OR Intraoperative Record IntraOp Document Type FT Summary Primary Physician: Domenico Loo MD Finalized Date/Time: 11/11/24 08:40:02 Pt. Name: CIERA HAYES/Sex: 1955 Female Med Rec #: [id number] Physician: Domenico Loo MD Financial #: [id number] Pt. Type: O Room/Bed: N309/ Admit/Disch: 11/09/24 [...] Gutiérrez Role Performed Surgeon - Primary Anesthesiologist Online Media Director - Primary Block Hand Time In 11/09/24 13:14:00 11/09/24 13:03:00 11/09/24 13:03:00 Time Out 11/09/24 16:17:00 11/09/24 16:17:00 11/09/24 16:17:00 Procedure CHOLECYSTECTOMY CHOLECYSTECTOMY CHOLECYSTECTOMY LAPAROSCOPIC W/ LAPAROSCOPIC W/ LAPAROSCOPIC W/ CHOLANGI(.) CHOLANGI(.) CHOLANGI(.) Comments dr. kumar supervising out for break at [phone] Last Modified By: Manuel SALCIDO, Arianna Jackson RN, Arianna Jackson RN, Arianna Gutiérrez 11/09/24 Richa P 11/09/24 Richa P 11/09/24 16:16:58 16:16:58 16:16:58 Entry 4 Entry 5 Entry 6 Case Attendee Ruby Lynne DIRECTOR OF NURSING, Christine Demarco RN, Victorina Boogie Role Performed Scrub - Primary DIRECTOR OF NURSING/SA Staff - Other Time In 11/09/24 13:03:00 [...] Bryant Cota, Jean Carlos Gutierrez Role Performed PA/NIGHT CLERK AUDITOR Online Media Director - Relief Time In 11/09/24 13:14:00 11/09/24 [...] 14:07:26 Post-C (more content not included)... Normal [facility] ABO/Rh History Checkon 11-10 ABO/Rh History Check Type verified by second s Normal [facility] Comment on above: Performed By: #### 1 [id number] #### [facility] [address] [place] [address] ABO/Rh Retypeon 11-10-2024 ABO/Rh Retype Interp Positive Invalid Interpretation Code [facility] Comment on above: Performed By: #### 1 [id number] #### [facility] [address] [place] [address] BLOOD BANKOrdered By: Jordyn Heck on 11-10-2024 ABO/Rh Retype Interp Positive Invalid Interpretation Code [facility] BB Subsection BMPon 11-10-2024 Anion gap [Moles/Vol] 12 mmol/L Normal 6-16 [facility] Comment on above: Performed By: #### 2 [id number] #### [facility] [address] [place] [address] Calcium [Mass/Vol] 8.3 mg/dL Low 8.9-11.1 [facility] Comment on above: Performed By: #### 2 [id number] #### [facility] [address] [place] [address] Chloride [Moles/Vol] 101 mmol/L Normal 101-111 [facility] Comment on above: Performed By: #### 2 114113 #### [facility] [address] [place] [address] CO2 [Moles/Vol] 24 mmol/L Normal 21-31 [facility] Comment on above: Performed By: #### 2 907352 #### [facility] [address] [place] [address] Creatinine [Mass/Vol] 1.2 mg/dL Normal 0.5-1.3 [facility] Comment on above: Performed By: #### 2 [id number] #### [facility] [address] [place] [address] Glucose [Mass/Vol] 245 mg/dL High 55-199 [facility] Comment on above: Performed By: #### 2 354696 #### [facility] [address] [place] [address] Potassium [Moles/Vol] 3.9 mmol/L Normal 3.5-5.3 [facility] Comment on above: Performed By: #### 2 851194 #### [facility] [address] [place] [address] Sodium [Moles/Vol] 133 mmol/L Low 135-145 [facility] Comment on above: Performed By: #### 2 988392 #### [facility] [address] [place] [address] Urea nitrogen [Mass/Vol] 35 mg/dL High 5-21 [facility] Comment on above: Performed By: #### 2 [id number] #### [facility] [address] [place] [address] Urea nitrogen/Creatinine [Mass ratio] 29 No Units High 10-20 [facility] Comment on above: Performed By: #### 2 534205 #### [facility] [address] [place] [address] CBC w/ Auto Diffon 5 Basophils/100 WBC (Bld) 0.1 % Normal 0.0-2.0 [facility] Comment on above: Performed By: #### 2 [id number] #### [facility] [address] [place] [address] Basophils/Leukocytes Auto (Bld) [Pure # fraction] 0.0 E9/L Normal 0.0-0.2 [facility] Comment on above: Performed By: #### 2 595259 #### [facility] [address] [place] [address] Eosinophils (Bld) [#/Vol] 0.0 E9/L Normal 0.0-0.5 [facility] Comment on above: Performed By: #### 2 625925 #### [facility] [address] [place] [address] Eosinophils/100 WBC (Bld) 0.0 % Normal 0.0-8.0 [facility] Comment on above: Performed By: #### 2 882687 #### [facility] [address] [place] [address] Erythrocyte distribution width (RBC) [Ratio] 13.7 % Normal 10.9-14.2 [facility] Comment on above: Performed By: #### 2 012997 #### [facility] [address] [place] [address] Hematocrit (Bld) [Volume fraction] 30.5 % Low 34.0-46.0 [facility] Comment on above: Performed By: #### 2 987777 #### [facility] [address] [place] [address] Hemoglobin (Bld) [Mass/Vol] 10.1 g/dL Low 12.0-16.0 [facility] Comment on above: Performed By: #### 2 879732 #### [facility] [address] [place] [address] Lymphocytes (Bld) [#/Vol] 0.5 E9/L Low 1.0-4.0 [facility] Comment on above: Performed By: #### 2 253227 #### [facility] [address] [place] [address] Lymphocytes/100 WBC (Bld) 3.9 % Low 14.0-50.0 [facility] Comment on above: Performed By: #### 2 997130 #### [facility] [address] [place] [address] MCH (RBC) [Entitic mass] 30.1 pg Normal 27.0-34.0 [facility] Comment on above: Performed By: #### 2 293952 #### [facility] [address] [place] [address] MCHC (RBC) [Mass/Vol] 33.2 g/dL Normal 31.4-36.0 [facility] Comment on above: Performed By: #### 2 580583 #### [facility] [address] [place] [address] MCV (RBC) [Entitic vol] 90.9 fL Normal 80.0-100.0 [facility] Comment on above: Performed By: #### 2 990124 #### [facility] [address] [place] [address] Monocytes (Bld) [#/Vol] 0.6 E9/L Normal 0.2-1.0 [facility] Comment on above: Performed By: #### 2 308375 #### [facility] [address] [place] [address] Neutrophils (Bld) [#/Vol] 11.4 E9/L High 2.0-7.5 [facility] Comment on above: Performed By: #### 2 424336 #### [facility] [address] [place] [address] Neutrophils/100 WBC (Bld) 90.9 % High 36.0-75.0 [facility] Comment on above: Performed By: #### 2 223492 #### [facility] [address] [place] [address] Platelet mean volume (Bld) [Entitic vol] 9.5 fL Normal 6.4-10.8 [facility] Comment on above: Performed By: #### 2 285579 #### [facility] [address] [place] [address] Platelets (Bld) [#/Vol] 151.0 E9/L Normal 150.0-500.0 [facility] Comment on above: Performed By: #### 2 145356 #### [facility] [address] [place] [address] RBC (Bld) [#/Vol] 3.4 E12/L Low 4.3-5.9 [facility] Comment on above: Performed By: #### 2 728490 #### [facility] [address] [place] [address] WBC corrected for nucl RBC Auto (Bld) [#/Vol] 12.5 E9/L High 4.0-11.0 [facility] Comment on above: Performed By: #### 2 [id number] #### [facility] [address] [place] [address] CHEMISTRYOrdered By: Lab ROP User on 11-10-2024 Glucose [Mass/Vol] 248 mg/dL High 55 - 99 mg/dL [facility] POC Subsection Comment on above: Result Comment: Maris FUENTES POC Username CLARISSA COOPER Invalid Interpretation Code [facility] POC Subsection Sodium [Moles/Vol] [id number] mmol/L Invalid Interpretation Code [facility] POC Subsection Sodium [Moles/Vol] [id number] mmol/L Invalid Interpretation Code [facility] POC Subsection Glucose [Mass/Vol] 232 mg/dL High 55 - 99 mg/dL [facility] POC Subsection Comment on above: Result Comment: Maris FUENTES POC Username CLARISSA COOPER Invalid Interpretation Code [facility] POC Subsection Sodium [Moles/Vol] [id number] mmol/L Invalid Interpretation Code [facility] POC Subsection Sodium [Moles/Vol] 568591834 mmol/L Invalid Interpretation Code [facility] POC Subsection CHEMISTRYOrdered By: SYSTEM SYSTEM [...] 10 - 20 Remisol Chem Capillary Glucose [facility] 10-20 Glucose [Mass/Vol] 248 mg/dL High 55-99 [facility] Comment on above: Result Comment: Maris madrid RN/ Performed By: #### 2 [id number] #### [facility] [address] [place] [address] Glucose [Mass/Vol] 232 mg/dL High 55-99 [facility] Comment on above: Result Comment: Maris madrid RN/MD Performed By: #### 2 [id number] #### [facility] [address] [place] [address] Discharge Note-Nursingon Discharge Note-Nursing Discharge Note-Nursing CIERA [...] schedule/confirm followup appointment Where: [address] [facility] 3, second floor, [address] [place] [address]- [phone] Follow Up with MARIETTA WASHINGTON CNP When: 11/15/2024 10:30 AM EST Where: [address] [address]- [phone] Medications What How Much When Why Instructions [...] I co (more content not included)... Normal [facility] Discharge Note-Nursing Discharge Note-Nursing CIERA HAYES [...] Comments: Call to schedule/confirm followup appointment Where: [address] [place] [address] 3, second floor, [address] [place] [address]- [phone] Follow Up with MARIETTA WASHINGTON CNP When: 11/15/2024 10:30 AM EST Where: [address] [place] [address]- [phone] Medications What How Much When Why Instructions [...] I co (more content not included)... Normal [facility] Discharge Note-Nursing Discharge Note-Nursing CIERA HAYES [...] Comments: Call to schedule/confirm followup appointment Where: [address] [place] [address] 3, second floor, [address] [place] [address]- [phone] Follow Up with MARIETTA WASHINGTON CNP When: 11/15/2024 10:30 AM EST Where: [address] [place] [address]- [phone] Medications What How Much When Why Instructions [...] corn. ??? (more content not included)... Normal [facility] HEMATOLOGYOrdered By: SYSTEM SYSTEM on 11-10-2024 [...] 11-10-2024 Albumin [Mass/Vol] 3.4 g/dL Normal 3.3-5.0 [facility] Comment on above: Performed By: #### 2 [id number] #### [facility] [address] [place] [address] Albumin/Globulin (S) [Mass conc ratio] 1.4 Normal 1.1-2.2 [facility] Comment on above: Performed By: #### 2 000507 #### [facility] [address] [place] [address] ALP [Catalytic activity/Vol] 57 Int._Unit/L Normal 21-98 [facility] Comment on above: Performed By: #### 2 003984 #### [facility] [address] [place] [address] ALT No additional P-5'-P [Catalytic activity/Vol] 69 Int._Unit/L High 6-46 [facility] Comment on above: Performed By: #### 2 026256 #### [facility] [address] [place] [address] AST [Catalytic activity/Vol] 84 Int._Unit/L High 5-43 [facility] Comment on above: Performed By: #### 2 607608 #### [facility] [address] [place] [address] Bilirubin [Mass/Vol] 1.0 mg/dL Normal 0.0-1.1 [facility] Comment on above: Performed By: #### 2 974635 #### [facility] [address] [place] [address] Bilirubin.direct [Mass/Vol] 0.3 mg/dL Normal 0.0-0.4 [facility] Comment on above: Performed By: #### 2 980247 #### [facility] [address] [place] [address] Bilirubin.indirect [Mass or moles/Vol] 0.7 mg/dL Normal 0.1-0.9 [facility] Comment on above: Performed By: #### 2 780884 #### [facility] [address] [place] [address] Globulin (S) [Mass/Vol] 2.5 g/dL Normal 1.4-4.0 [facility] Comment on above: Performed By: #### 2 625998 #### [facility] [address] [place] [address] Protein [Mass/Vol] 5.9 g/dL Low 6.0-7.8 [facility] Comment on above: Performed By: #### 2 953261 #### [facility] [address] [place] [address] Inpatient Clinical Summaryon 11-10-2024 Inpatient Clinical Summary Inpatient Clinical Summary [address] [address] Clinical Summary Person Information: Name: CIERA HAYES Age: 69 Years : 1955 Sex: Female PCP: MARIETTA WASHINGTON CNP Marital Status: Race: White Ethnicity: Non- or Language: Telugu N: [id number] Visit Id: Visit Reason: ACUTE CHOLECYSTITIS Speciality: Acuity: Enc Type: Observation Med Service: Surgery Arrival: 11/09/2024 03:12:02 Discharge: Dispo Type: Address: [place] [phone] Provider Notes: Diagnosis: 2:Poorly controlled diabetes mellitus; [...] Follow up: With: Address: When: trauma clinic [address] [place] [address] 3, second floor, [address] [place] [address] 11/16/2024 9:45 AM Comments: Call to schedule/confirm followup appointment With: Address: When: MARIETTA WASHINGTON CNP [address] [place] [phone] Within 7 to 10 days Comments: Call to schedule appointment for hospital follow up and high blood sugars Patient Education Information: Carbohydrate Counting for Diabetes Mellitus, Adult; Hyperglycemia, Mvcc-ai-Gasc; Mckinnon - JacksonPratt Drainage Tube Care(CUSTOM); Minimally Invasive Cholecystectomy, Care After, Qztf-ub-Inny; Cholecystitis Normal [facility] Inpatient Patient Summaryon 11-10-2024 Inpatient Patient Summary Inpatient Patient Summary [address] [address] Patient Discharge Instructions PERSON INFORMATION Name: CIERA HAYES Date of : 1955 Current Date: 11/10/2024 13:52:42 PHYSICIANS Admitting Physician: Domenico Loo MD Primary Care Physician: MARIETTA WASHINGTON CNP PCP Phone Number: [phone] Comment: Discharge Diagnosis: 2:Poorly controlled diabetes mellitus; [...] Follow up: With: Address: When: trauma clinic [address] [place] [address] 3, second floor, [address] [place] [address] 11/16/2024 9:45 AM Comments: Call to schedule/confirm followup appointment With: Address: When: MARIETTA WASHINGTON CNP [address] [phone] Within 7 to 10 days Comments: Call [...] Instructions: Carbohydrate Counting (more content not included)... [facility] Interdisciplinary Note - Bravo e Manageron 11-10-2024 Interdisciplinary Note - Chief Security And Safety Officer Interdisciplinary Note - Chief Security And Safety Officer CRM to room 309 Patient is awake, alert and oriented. Patient is from home with her spouse. Him or family will be her ride at [place]. Patient verified PCP, DME and insurance. Patient is an observation. She came in from [facility] for Acute [facility]. Patient declined DC needs [...] that she is a possible DC today [facility] Comment on above: Result Comment: Elec tronically Signed By: Neha Keyes\.br\Date and Time Signed: 11/10/24 12:57 EST Interdisciplinary Note - Chief Security And Safety Officer Interdisciplinary Note - Chief Security And Safety Officer CRM to room 309 Patient is awake, alert and oriented. Patient is from home with her spouse. Him or family will be her ride at [place]. Patient verified PCP, DME and insurance. Patient is an observation. She came in from [facility] for Acute [facility]. Patient declined DC needs for DME, HH or Paramed . She declined any concerns to return home. Patient is assigned to Trauma, CRM is awaiting updates. CRM provided contact info, white board updated. CRM following DC date TBD [facility] Comment on above: Result Comment: Elec tronically Signed By: Neha Keyes\.br\Date and Time Signed: 11/10/24 09:41 EST Operative Reporton 5 Operative Report Operative Report [facility] Acute Care Surgery Operative Report Date of Service: 11/09/24 Preop Diagnosis: Acute cholecystitis Postop Diagnosis: Acute gangrenous cholecystitis Procedure: laparoscopic cholecystectomy Surgeon:Domenico Loo MD Block Hand: Bryant Stone PA-C Anesthesia: General endotracheal EBL: [...] was controlled with Brianne powder. A 15 Cuban round CALI drain was inserted through the [...] parts of the procedure. Domenico Loo MD [facility] Comment on above: Result Comment: Elec tronically Signed By: Santana KING, Domenico Sky\.br\Date and Time Signed: 11/10/24 17:45 EST eGFRon 11-10-2024 eGFR 49 mL/min/1.73 m2 Low >=59 [facility] Comment on above: Performed By: #### 1 [id number] #### [facility] [address] [place] [address] ABO/Rhon 11-09-2024 ABO/Rh Positive Invalid Interpretation Code [facility] Comment on above: Performed By: #### 2 [id number] #### [facility] [address] [place] [address] ABSCon 11-09-2024 ABSC Gel Interp Negative Normal [facility] Comment on above: Performed By: #### 1 [id number] #### [facility] [address] [place] [address] BLOOD BANKOrdered By: Gage Chan on 11-09-2024 ABO/Rh Interp Positive Invalid Interpretation Code [facility] BB Subsection ABSC Gel Interp Negative (11/09/24 7:44 AM) Normal [facility] BB Subsection BMPon 11-09-2024 Anion gap [Moles/Vol] 12 mmol/L Normal 6-16 [facility] Comment on above: Performed By: #### 2 [id number] #### [facility] [address] [place] [address] Calcium [Mass/Vol] 9.1 mg/dL Normal 8.9-11.1 [facility] Comment on above: Performed By: #### 2 611063 #### [facility] [address] [place] [address] Chloride [Moles/Vol] 97 mmol/L Low 101-111 [facility] Comment on above: Performed By: #### 2 [id number] #### [facility] [address] [place] [address] CO2 [Moles/Vol] 27 mmol/L Normal 21-31 [facility] Comment on above: Performed By: #### 2 998951 #### [facility] [address] [place] [address] Creatinine [Mass/Vol] 0.8 mg/dL Normal 0.5-1.3 [facility] Comment on above: Performed By: #### 2 893956 #### [facility] [address] [place] [address] Glucose [Mass/Vol] 222 mg/dL High 55-199 [facility] Comment on above: Performed By: #### 2 600680 #### [facility] [facility] [address] [place] [address] Potassium [Moles/Vol] 3.8 mmol/L Normal 3.5-5.3 [facility] Comment on above: Performed By: #### 2 [id number] #### [facility] [address] [place] [address] Sodium [Moles/Vol] 132 mmol/L Low 135-145 [facility] Comment on above: Performed By: #### 2 [id number] #### [facility] [address] [place] [address] Urea nitrogen [Mass/Vol] 21 mg/dL Normal 5-21 [facility] Comment on above: Performed By: #### 2 [id number] #### [facility] [address] [place] [address] Urea nitrogen/Creatinine [Mass ratio] 26 No Units High 10-20 [facility] Comment on above: Performed By: #### 2 [id number] #### [facility] [address] [place] [address] Blood Bank ID#on 11-09-2024 BBID# [id number] Invalid Interpretation Code [facility] Comment on above: Performed By: #### 1 [id number] #### [facility] [address] [place] [address] CBC w/ Auto Diffon 5 Band form neutrophils/100 WBC (Bld) 1.0 % Normal 0.0-6.0 [facility] Comment on above: Performed By: #### 2 [id number] #### [facility] [address] [place] [address] Basophils (Bld) [#/Vol] 0.0 E9/L Normal 0.0-0.2 [facility] Comment on above: Performed By: #### 2 [id number] #### [facility] [address] [place] [address] Eosinophils (Bld) [#/Vol] 0.0 E9/L Normal 0.0-0.5 [facility] Comment on above: Performed By: #### 2 [id number] #### [facility] [address] [place] [address] Eosinophils/100 WBC (Bld) 0.0 % Normal 0.0-8.0 [facility] Comment on above: Performed By: #### 2 [id number] #### [facility] [address] [place] [address] Lymphocytes (Bld) [#/Vol] 1.4 E9/L Normal 1.0-4.0 [facility] Comment on above: Performed By: #### 2 [id number] #### [facility] [address] [place] [address] Lymphocytes/100 WBC (Bld) 7.0 % Low 14.0-50.0 [facility] Comment on above: Performed By: #### 2 [id number] #### [facility] [address] [place] [address] Monocytes (Bld) [#/Vol] 0.6 E9/L Normal 0.2-1.0 [facility] Comment on above: Performed By: #### 2 [id number] #### [facility] [address] [place] [address] Neutrophils (Bld) [#/Vol] 18.1 E9/L Invalid Interpretation Code [facility] Comment on above: Performed By: #### 2 [id number] #### [facility] [address] [place] [address] Segmented neutrophils/100 WBC (Bld) 89.0 % High 36.0-75.0 [facility] Comment on above: Performed By: #### 2 332111 #### [facility] [address] [place] [address] Erythrocyte distribution width (RBC) [Ratio] 13.6 % Normal 10.9-14.2 [facility] Comment on above: Performed By: #### 2 [id number] #### [facility] [address] [place] [address] Hematocrit (Bld) [Volume fraction] 36.0 % Normal 34.0-46.0 [facility] Comment on above: Performed By: #### 2 [id number] #### [facility] [address] [place] [address] Hemoglobin (Bld) [Mass/Vol] 12.4 g/dL Normal 12.0-16.0 [facility] Comment on above: Performed By: #### 2 [id number] #### [facility] [address] [place] [address] MCH (RBC) [Entitic mass] 30.4 pg Normal 27.0-34.0 [facility] Comment on above: Performed By: #### 2 [id number] #### [facility] [address] [place] [address] MCHC (RBC) [Mass/Vol] 34.6 g/dL Normal 31.4-36.0 [facility] Comment on above: Performed By: #### 2 [id number] #### [facility] [address] [place] [address] MCV (RBC) [Entitic vol] 87.9 fL Normal 80.0-100.0 [facility] Comment on above: Performed By: #### 2 [id number] #### [facility] [address] [place] [address] Platelet 168.0 E9/L Normal 150.0-500.0 [facility] Comment on above: Performed By: #### 2 [id number] #### [facility] [address] [place] [address] Platelet mean volume (Bld) [Entitic vol] 8.8 fL Normal 6.4-10.8 [facility] Comment on above: Performed By: #### 2 [id number] #### [facility] [address] [place] [address] RBC (Bld) [#/Vol] 4.1 E12/L Low 4.3-5.9 [facility] Comment on above: Performed By: #### 2 604512 #### [facility] [address] [place] [address] WBC corrected for nucl RBC Auto (Bld) [#/Vol] 20.1 E9/L High 4.0-11.0 [facility] Comment on above: Performed By: #### 2 [id number] #### [facility] [address] [place] [address] CHEMISTRYOrdered By: Lab ROP User on 11-09-2024 Glucose [Mass/Vol] 266 mg/dL High 55 - 99 mg/dL [facility] POC Subsection Comment on above: Result Comment: Maris madrid RN/ POC Username TAINA MOORE Invalid Interpretation Code [facility] POC Subsection Sodium [Moles/Vol] [id number] mmol/L Invalid Interpretation Code [facility] POC Subsection Sodium [Moles/Vol] [id number] mmol/L Invalid Interpretation Code [facility] POC Subsection CHEMISTRYOrdered By: SYSTEM SYSTEM [...] 10-20 Glucose [Mass/Vol] 266 mg/dL High 55-99 [facility] Comment on above: Result Comment: Maris FUENTES Performed By: #### 2 [id number] #### [facility] [address] [place] [address] Glucose [Mass/Vol] 272 mg/dL High 55-99 [facility] Comment on above: Result Comment: Maris FUENTES Performed By: #### 2 [id number] #### [facility] [address] [place] [address] Glucose [Mass/Vol] 215 mg/dL High 55-99 [facility] Comment on above: Result Comment: Maris FUENTES Performed By: #### 2 [id number] #### [facility] [address] [place] [address] Glucose [Mass/Vol] 216 mg/dL High 55-99 [facility] Comment on above: Result Comment: Maris madrid RN/ Performed By: #### 2 [id number] #### [facility] [address] [place] [address] Extra Blueon 11-09-2024 Tube Collected Plasma Yes Invalid Interpretation Code [facility] Comment on above: Performed By: #### 1 [id number] #### [facility] [address] [place] [address] HEMATOLOGYOrdered By: SYSTEM SYSTEM on 11-09-2024 Band [...] 11-09-2024 Albumin [Mass/Vol] 3.7 g/dL Normal 3.3-5.0 [facility] Comment on above: Performed By: #### 2 [id number] #### [facility] [address] [place] [address] Albumin/Globulin (S) [Mass conc ratio] 1.2 Normal 1.1-2.2 [facility] Comment on above: Performed By: #### 2 [id number] #### [facility] [address] [place] [address] ALP [Catalytic activity/Vol] 63 Int._Unit/L Normal 21-98 [facility] Comment on above: Performed By: #### 2 [id number] #### [facility] [address] [place] [address] ALT No additional P-5'-P [Catalytic activity/Vol] 44 Int._Unit/L Normal 6-46 [facility] Comment on above: Performed By: #### 2 753161 #### [facility] [address] [place] [address] AST [Catalytic activity/Vol] 45 Int._Unit/L High 5-43 [facility] Comment on above: Performed By: #### 2 [id number] #### [facility] [address] [place] [address] Bilirubin [Mass/Vol] 2.0 mg/dL High 0.0-1.1 [facility] Comment on above: Performed By: #### 2 [id number] #### [facility] [address] [place] [address] Bilirubin.direct [Mass/Vol] 0.7 mg/dL High 0.0-0.4 [facility] Comment on above: Performed By: #### 2 522805 #### [facility] [address] [place] [address] Bilirubin.indirect [Mass or moles/Vol] 1.3 mg/dL High 0.1-0.9 [facility] Comment on above: Performed By: #### 2 [id number] #### [facility] [address] [place] [address] Globulin (S) [Mass/Vol] 3.0 g/dL Normal 1.4-4.0 [facility] Comment on above: Performed By: #### 2 [id number] #### [facility] [address] [place] [address] Protein [Mass/Vol] 6.7 g/dL Normal 6.0-7.8 [facility] Comment on above: Performed By: #### 2 401703 #### [facility] [address] [place] [address] Interdisciplinary Note - Bravo e Manageron 11-09-2024 Interdisciplinary Note - Chief Security And Safety Officer Interdisciplinary Note - Chief Security And Safety Officer CRM to room 309 Patient is getting ready to be taken to the OR CRM will come back later this date if able or on 11/10 Patient was a direct admit from [facility] for Acute Sandra. Patient is going to OR today with Dr Loo Patient DC dates and plans TBD. CRM contact info to white nathan. CRM following Patient is still not back from OR CRM will have to see on 11/10 [facility] Comment on above: Result Comment: Elec tronically Signed By: Neha Keyes\.br\Date and Time Signed: 11/09/24 15:27 EST Interdisciplinary Note - Chief Security And Safety Officer Interdisciplinary Note - Chief Security And Safety Officer CRM to room 309 Patient is getting ready to be taken to the OR CRM will come back later this date if able or on 11/10 Patient was a direct admit from [facility] for Acute Sandra. Patient is going to OR today with Dr Loo Patient DC dates and plans TBD. CRM contact info to butler nathan. CRM following Normal [facility] Comment on above: Result Comment: Elec tronically Signed By: Neha Keyes\.br\Date and Time Signed: 11/09/24 11:47 EST Main OR Intraoperative Recor don 11-09-2024 Main OR Intraoperative Record Main OR Intraoperative Record IntraOp Document Type FT Summary Primary Physician: Domenico Loo MD Finalized Date/Time: 11/09/24 16:18:01 Pt. Name: CIERA HAYES Perfecto Linares/Sex: 1955 Female Med Rec #: [id number] Physician: Domenico Loo MD Financial #: [id number] Pt. Type: O Room/Bed: [place] [address] Admit/Disch: 11/09/24 03:12:02 - Institution: Case Times FT Entry 1 Patient Times In Room 11/09/24 13:03:00 Out Room 11/09/24 16:17:00 Procedure Times Start 11/09/24 13:24:00 Stop 11/09/24 16:06:00 Anesthesia Times Start 11/09/24 13:03:00 Stop 11/09/24 16:17:00 Last Modified By: Manuel SALCIDO, Arianna Gutiérrez 11/09/24 16:16:57 Case Attendance FT Entry 1 Entry 2 Entry 3 Case Attendee Domenico Loo MD [facility], Jose Jackson RN, Arianna Gutiérrez Role Performed Surgeon - Primary Anesthesiologist Online Media Director - Primary Block Hand Time In 11/09/24 13:14:00 11/09/24 13:03:00 11/09/24 13:03:00 Time Out 11/09/24 16:17:00 11/09/24 16:17:00 11/09/24 16:17:00 Procedure CHOLECYSTECTOMY CHOLECYSTECTOMY CHOLECYSTECTOMY LAPAROSCOPIC W/ LAPAROSCOPIC W/ LAPAROSCOPIC W/ CHOLANGI(.) CHOLANGI(.) CHOLANGI(.) Comments dr. kumar supervising out for break at [phone] Last Modified By: Manuel RN, Arianna Jackson RN, Arianna Jackson RN, Arianna Chaudhry P 11/09/24 Richa P 11/09/24 Richa P 11/09/24 16:16:58 16:16:58 16:16:58 Entry 4 Entry 5 Entry 6 Case Attendee Ruby Lynne DIRECTOR OF NURSING, Christine Demarco RN, Victorina Boogie Role Performed Scrub - Primary DIRECTOR OF NURSING/SA Staff - Other Time In 11/09/24 13:03:00 [...] Chase PENN, Jean Carlos Rojas Role Performed PA/NIGHT CLERK AUDITOR Online Media Director - Relief Time In 11/09/24 13:14:00 11/09/24 [...] (Pre Procedure (more content not included)... Normal [facility] Main OR PACU I Recordon 10-20 Main OR PACU I Record Main OR PACU I Rec ord PACU Phase I Document Type FT Summary Primary Physician: Domenico Loo MD Finalized Date/Time: 11/09/24 17:40:25 Pt. Name: CIERA HAYES Perfecto Greenberg/Sex: 1955 Female Med Rec #: [id number] Physician: Domenico Loo MD Financial #: [id number] Pt. Type: O Room/Bed: [place] [address] Admit/Disch: 11/09/24 03:12:02 - Institution: Case Times [...] By: Sun Michael RN 11/09/24 17:40 Normal [facility] Main OR Preoperative Recordo n 11-09-2024 Main OR Preoperative Record Main OR Preoperative Record PreOp Document Type FT Summary Primary Physician: Domenico Loo MD Finalized Date/Time: 11/09/24 14:07:41 Pt. Name: CIERA HAYES Perfecto /Sex: 1955 Female Med Rec #: [id number] Physician: Domenico Loo MD Financial #: [id number] Pt. Type: O Room/Bed: [place] [address] Admit/Disch: 11/09/24 03:12:02 - Institution: Case Times [...] By: Arianna Jackson RN 11/09/24 14:07 Normal [facility] US Gallbladderon 11-09-2024 US Gallbladder Exam [...] MD Transcribed by: TRINITY Technologist: NIMISHA Otero [facility] eGFRon 11-09-2024 eGFR 80 mL/min/1.73 m2 Normal >=59 [facility] Comment on above: Performed By: #### 1 [id number] #### [facility] [address] [place] [address] MG MAMM SCREEN 3D AMNA CADon 12-30-2022 MG MAMM SCREEN 3D AMNA CAD Patient: CIERA HAYES Exam Date: 12/30/2022 : 1955 Gender:F Ordering : [facility] Admission #: [id number] Family : Order #: [id number] CLICK HERE TO VIEW EXAM RADIOLOGY REPORT [...] cervical cancer at age 61. LOCATION: [facility] BREAST COMPOSITION: Scattered areas fibroglandular [...] Calvo MD on 12/31/2022 at 06:55 Normal [facility] CBC AUTO DIFFon 12-29-2022 BASO # 0.1 103/ul Normal 0.0-0.1 [facility] Comment on above: Performed By: #### C BC #### [facility] [address] [place] [address] Dr. Melania Rodriguez Basophils/100 WBC (Bld) 0.6 % Normal 0.2-2.0 [facility] Comment on above: Performed By: #### C BC #### [facility] [address] [place] [address] Dr. Melania Rodriguez EO # 0.3 103/ul Normal 0.0-0.7 [facility] Comment on above: Performed By: #### C BC #### [facility] [address] [place] [address] Dr. Melania Rodriguez Eosinophils/100 WBC (Bld) 3.9 % Normal 0.9-7.0 [facility] Comment on above: Performed By: #### C BC #### [facility] [address] [place] [address] Dr. Melania Rodriguez Erythrocyte distribution width (RBC) [Ratio] 13.4 % Normal 11.0-15.0 [facility] Comment on above: Performed By: #### C BC #### [facility] [address] [place] [address] Dr. Melania Rodriguez Hematocrit (Bld) [Volume fraction] 42.5 % Normal 36.0-48.0 [facility] Comment on above: Performed By: #### C BC #### [facility] [address] [place] [address] Dr. Melania Rodriguez Hemoglobin (Bld) [Mass/Vol] 13.8 g/dL Normal 12.0-16.0 [facility] Comment on above: Performed By: #### C BC #### [facility] [address] [place] [address] Dr. Melania Rodriguez IG # 0.03 10e3/ul Normal 0.00-0.03 [facility] Comment on above: Performed By: #### C BC #### [facility] [address] [place] [address] Dr. Melania Rodriguez IG % 0.4 % Normal 0.0-0.5 [facility] Comment on above: Performed By: #### C BC #### [facility] [address] [place] [address] Dr. Melania Rodriguez LYMPH # 3.0 103/ul Normal 1.2-3.8 [facility] Comment on above: Performed By: #### C BC #### [facility] [address] [place] [address] Dr. Melania Rodriguez Lymphocytes/100 WBC (Bld) 35.1 % Normal 20.5-60.0 [facility] Comment on above: Performed By: #### C BC #### [facility] [address] [place] [address] Dr. Melania Rodriguez MANUAL DIFF REQ NO Normal [facility] Comment on above: Performed By: #### C BC #### [facility] [address] [place] [address] Dr. Melania Rodriguez MCH (RBC) [Entitic mass] 29.5 pg Normal 26.7-34.0 [facility] Comment on above: Performed By: #### C BC #### [facility] [address] [place] [address] Dr. Melania Rodriguez MCHC (RBC) [Mass/Vol] 32.5 g/dL Normal 29.9-35.2 [facility] Comment on above: Performed By: #### C BC #### [facility] [address] [place] [address] Dr. Melania Rodriguez MCV (RBC) [Entitic vol] 90.8 fL Normal 81.0-99.0 [facility] Comment on above: Performed By: #### C BC #### [facility] [address] [place] [address] [address] Melania Rodriguez MONO # 0.4 103/ul Normal 0.3-0.8 [facility] Comment on above: Performed By: #### C BC #### [facility] [address] [place] [address] [address] Melania Rodriguez Monocytes/100 WBC (Bld) 5.1 % Normal 1.7-12.0 [facility] Comment on above: Performed By: #### C BC #### [facility] [address] [place] [address] Dr. Melania Rodriguez NEUT # 4.7 103/ul Normal 1.4-6.5 [facility] Comment on above: Performed By: #### C BC #### [facility] [address] [place] [address] Dr. Mleania Rodriguez Neutrophils/100 WBC (Bld) 54.9 % Normal 43.0-75.0 [facility] Comment on above: Performed By: #### C BC #### [facility] [address] [place] [address] Dr. Melania Rodriguez Platelet mean volume (Bld) [Entitic vol] 10.9 fL Normal 9.5-13.5 [facility] Comment on above: Performed By: #### C BC #### [facility] [address] [place] [address] Dr. Melania Rodriguez PLT 196 103/ul Normal 150-450 [facility] Comment on above: Performed By: #### C BC #### [facility] [address] [place] [address] Dr. Melania Rodriguez RBC 4.68 106/ul Normal 4.20-5.40 [facility] Comment on above: Performed By: #### C BC #### [facility] [address] [place] [address] Dr. Melania Rodriguez WBC 8.6 103/ul Normal 4.0-11.0 [facility] Comment on above: Performed By: #### C BC #### [facility] [address] [place] [address] Dr. Melania Rodriguez FREE THYROXINE INDEX T7on FTI 2.58 Normal 1.30-4.50 [facility] Comment on above: Performed By: #### C MP, T7, TSH, LIPID #### [facility] [address] [place] [address] Dr. Melania Rodriguez T3U 34.0 % Normal 30.0-39.0 [facility] Comment on above: Performed By: #### C MP, T7, TSH, LIPID #### [facility] [address] [place] [address] Dr. Melania Rodriguez T4 [Mass/Vol] 7.60 ug/dL Normal 4.80-13.90 [facility] Comment on above: Performed By: #### C MP, T7, TSH, LIPID #### [facility] [address] [place] [address] Dr. Melania Rodriguez GLYCOHEMOGLOBIN A1Con 2022 ADA RECOMMENDATION SEE BELOW Normal [facility] Comment on above: Result Comment: ADA RECOMMENDED LIMIT 4.0 - 6.0 ADA THERAPEUTIC TARGET < 7.0 ACTION SUGGESTED > 7.0 Performed By: #### A 1C #### [facility] [address] [place] [address] Dr. Melania Rodriguez Glucose [Mass/Vol] 146 mg/dL Normal [facility] Comment on above: Performed By: #### A 1C #### [facility] [address] [place] [address] Dr. Melania Rodriguez HbA1c (Bld) [Mass fraction] 6.7 % Critically high 4.5-6.2 [facility] Comment on above: Performed By: #### A 1C #### [facility] [address] [place] [address] Dr. Melania Rodriguez LIPID PROFILEon 12-29-2022 CHOL-HDL RATIO NORM SEE BELOW Normal [facility] Comment on above: Result Comment: 3.3 - 4.4 LOW RISK 4.4 - 7.1 AVERAGE RISK 7.1 - 11.0 MODERATE RISK >11.0 HIGH RISK Performed By: #### C MP, T7, TSH, LIPID #### [facility] [address] [place] [address] [address] Melania Rodriguez Cholesterol [Mass/Vol] 140 mg/dL Normal <=200 [facility] Comment on above: Performed By: #### C MP, T7, TSH, LIPID #### [facility] [address] [place] [address] [address] Melania Rodriguez Cholesterol in HDL [Mass/Vol] 40 mg/dL Normal 40-60 [facility] Comment on above: Performed By: #### C MP, T7, TSH, LIPID #### [facility] [address] [place] [address] [address] Melania Rodriguez Cholesterol in LDL [Mass/Vol] 57.2 mg/dL Normal [facility] Comment on above: Performed By: #### C MP, T7, TSH, LIPID #### [facility] [address] [address] [address] Melania Rodriguez Cholesterol.total/Cho lesterol in HDL [Mass ratio] 3.5 {ratio} Normal [facility] Comment on above: Performed By: #### C MP, T7, TSH, LIPID #### [facility] [address] [place] [address] [address] Melania Rodriguez HDL NORMAL > or = 60 mg/dl - LO W CARDIOVASCULAR RISK <40 mg/dl - HIGH CARDIOVASCULAR RISK Normal [facility] Comment on above: Performed By: #### C MP, T7, TSH, LIPID #### [facility] [address] [address] [address] Melania Rodriguez LDL CALC NORMAL SEE BELOW Normal [facility] Comment on above: Result Comment: <100 mg/dl OPTIMAL 100 - 129 mg/dl NEAR OR ABOVE OPTIMAL 130 - 159 mg/dl BORDERLINE HIGH 160 - 189 mg/dl HIGH >190 mg/dl VERY HIGH Performed By: #### C MP, T7, TSH, LIPID #### [facility] [address] [place] [address] [address] Melania Rodriguez Triglyceride [Mass/Vol] 214 mg/dL Critically high <=150 [facility] Comment on above: Performed By: #### C MP, T7, TSH, LIPID #### [facility] [address] [place] [address] [address] Melania Rodriguez VLDL CALC 42.8 mg/dL Normal [facility] Comment on above: Performed By: #### C MP, T7, TSH, LIPID #### [facility] [address] [place] [address] [address] Melania Rodriguez PROF 14(COMP METB)on 023 Albumin [Mass/Vol] 3.8 g/dL Normal 3.4-5.0 [facility] Comment on above: Performed By: #### C MP, T7, TSH, LIPID #### [facility] [address] [address] [address] Melania Rodriguez Albumin/Globulin [Mass ratio] 1.2 {ratio} Normal [facility] Comment on above: Performed By: #### C MP, T7, TSH, LIPID #### [facility] [address] [place] [address] Dr. Melania Rodriguez ALP [Catalytic activity/Vol] 73 U/L Normal 46-116 [facility] Comment on above: Performed By: #### C MP, T7, TSH, LIPID #### [facility] [address] [place] [address] Dr. Melania Rodriguez ALT [Catalytic activity/Vol] 37 U/L Normal 14-59 [facility] Comment on above: Performed By: #### C MP, T7, TSH, LIPID #### [facility] [address] [address] [address] Melania Rodriguez Anion gap [Moles/Vol] 12.8 mmol/L Normal [facility] Comment on above: Performed By: #### C MP, T7, TSH, LIPID #### [facility] [address] [place] [address] Dr. Melania Rodriguez AST [Catalytic activity/Vol] 25 U/L Normal 15-37 [facility] Comment on above: Performed By: #### C MP, T7, TSH, LIPID #### [facility] [address] [place] [address] Dr. Melania Rodriguez Bilirubin [Mass/Vol] 0.7 mg/dL Normal 0.2-1.0 [facility] Comment on above: Performed By: #### C MP, T7, TSH, LIPID #### [facility] [address] [place] [address] Dr. Melania Rodriguez Calcium [Mass/Vol] 9.6 mg/dL Normal 8.5-10.1 [facility] Comment on above: Performed By: #### C MP, T7, TSH, LIPID #### [facility] [address] [place] [address] Dr. Melania Rodriguez Chloride [Moles/Vol] 103 mmol/L Normal 98-107 [facility] Comment on above: Performed By: #### C MP, T7, TSH, LIPID #### [facility] [address] [place] [address] Dr. Melania Rodriguez CO2 [Moles/Vol] 29.4 mmol/L Normal 21.0-32.0 [facility] Comment on above: Performed By: #### C MP, T7, TSH, LIPID #### [facility] [address] [place] [address] Dr. Melania Rodriguez Creatinine [Mass/Vol] 0.59 mg/dL Normal 0.55-1.02 [facility] Comment on above: Performed By: #### C MP, T7, TSH, LIPID #### [facility] [address] [place] [address] Dr. Melania Rodriguez EGFR-AF BELIZEAN >60 Normal >=60 [facility] Comment on above: Performed By: #### C MP, T7, TSH, LIPID #### [facility] [address] [place] [address] Dr. Melania Rodriguez EGFR-NON AF BELIZEAN >60 Normal >=60 [facility] Comment on above: Performed By: #### C MP, T7, TSH, LIPID #### [facility] [address] [place] [address] Dr. Melania Rodriguez Globulin (S) [Mass/Vol] 3.1 g/dL Normal [facility] Comment on above: Performed By: #### C MP, T7, TSH, LIPID #### [facility] [address] [address] [address] Melania Rodriguez Glucose [Mass/Vol] 106 mg/dL Normal 74-106 [facility] Comment on above: Performed By: #### C MP, T7, TSH, LIPID #### [facility] [address] [address] [address] Melania Rodriguez Potassium [Moles/Vol] 4.2 mmol/L Normal 3.5-5.1 [facility] Comment on above: Performed By: #### C MP, T7, TSH, LIPID #### [facility] [address] [address] [address] Melania Rodriguez Protein [Mass/Vol] 6.9 g/dL Normal 6.4-8.2 [facility] Comment on above: Performed By: #### C MP, T7, TSH, LIPID #### [facility] [address] [place] [address] Dr. Melania Rodriguez Sodium [Moles/Vol] 141 mmol/L Normal 136-145 [facility] Comment on above: Performed By: #### C MP, T7, TSH, LIPID #### [facility] [address] [address] [address] Melania Rodriguez Urea nitrogen [Mass/Vol] 17.0 mg/dL Normal 7.0-18.0 [facility] Comment on above: Performed By: #### C MP, T7, TSH, LIPID #### [facility] [address] [address] [address] Melania Rodriguez Urea nitrogen/Creatinine [Mass ratio] 28.8 mg/mg Normal [facility] Comment on above: Performed By: #### C MP, T7, TSH, LIPID #### [facility] [address] [address] [address] Melania Rodriguez TSHon 12-29-2022 TSH 2.301 uIU/mL Normal 0.358-3.740 [facility] Comment on above: Performed By: #### C MP, T7, TSH, LIPID #### [facility] [address] [place] [address] Dr. Melania Rodriguez Vital Signs Date Time Vital Sign Value Performing Clinician Faci lity 11-16-2024 09:53-0500 Diastolic blood pressure 70 mm[Hg] Tulio London [facility] 11-16-2024 09:53-0500 Heart rate 61 /min Tulio London [facility] 11-16-2024 09:53-0500 Systolic blood pressure 121 mm[Hg] Tulio London [facility] 11-10-2024 15:00-0500 Hourly Rounding Domenico Loo [facility] 11-10-2024 15:00-0500 Promise to Return Domenico Loo [facility] 11-10-2024 14:00-0500 Hourly Rounding Domenico Loo [facility] 11-10-2024 14:00-0500 Promise to Return Domenico Loo [facility] 11-10-2024 13:00-0500 Hourly Rounding Domenico Loo [facility] 11-10-2024 13:00-0500 Promise to Return Domenico Loo [facility] 11-10-2024 11:07-0500 Heart rate 76 /min Domenico Loo [facility] 11-10-2024 11:07-0500 SaO2% (BldA) [Mass fraction] 98 % Domenico Loo [facility] 11-10-2024 11:03-0500 Body temperature 97.88 [degF] Domenico Loo [facility] 11-10-2024 11:03-0500 Diastolic blood pressure 66 mm[Hg] Domenico Loo [facility] 11-10-2024 11:03-0500 Mean blood pressure 80 mm[Hg] Domenico Loo [facility] 11-10-2024 11:03-0500 Systolic blood pressure 109 mm[Hg] Domenico Loo [facility] 11-10-2024 08:05-0500 Diastolic blood pressure 61 mm[Hg] Domenico Loo [facility] 11-10-2024 08:05-0500 Systolic blood pressure 95 mm[Hg] Domenico Loo [facility] 11-10-2024 07:53-0500 Heart rate 70 /min Domenico Loo [facility] 11-10-2024 07:53-0500 SaO2% (BldA) [Mass fraction] 99 % Domenico Loo [facility] 11-10-2024 07:52-0500 Body temperature 97.7 [degF] Domenico Loo [facility] 11-10-2024 07:52-0500 Diastolic blood pressure 61 mm[Hg] Domenico Loo [facility] 11-10-2024 07:52-0500 Mean blood pressure 72 mm[Hg] Domenico Loo [facility] 11-10-2024 07:52-0500 Systolic blood pressure 95 mm[Hg] Domenico Loo [facility] 11-10-2024 04:07-0500 Body temperature 97.52 [degF] Domenico Loo [facility] 11-10-2024 04:07-0500 Heart rate 68 /min Domenico Loo [facility] 11-10-2024 04:07-0500 Mean blood pressure 74 mm[Hg] Domenico Loo [facility] 11-10-2024 04:07-0500 Respiratory rate 18 /min Domenico Loo [facility] 11-10-2024 04:07-0500 SaO2% (BldA) [Mass fraction] 99 % Domenico Loo [facility] 11-10-2024 01:07-0500 Body temperature 97.16 [degF] Domenico Loo [facility] 11-10-2024 01:07-0500 Mean blood pressure 80 mm[Hg] Domenico Loo [facility] 11-10-2024 01:07-0500 Respiratory rate 18 /min Domenico Loo [facility] 11-09-2024 20:22-0500 Respiratory rate 16 /min Domenico Loo [facility] 11-09-2024 20:22-0500 Body temperature 98.06 [degF] Domenico Loo [facility] 11-09-2024 20:21-0500 Mean blood pressure 83 mm[Hg] Domenico Loo [facility] 11-09-2024 17:00-0500 Body temperature 97.7 [degF] Domenico Loo [facility] 11-09-2024 17:00-0500 Mean blood pressure 75 mm[Hg] Domenico Loo [facility] 11-09-2024 16:55-0500 Blood Pressure Location Domenico Loo [facility] 11-09-2024 16:55-0500 Body temperature 97.52 [degF] Domenico Loo [facility] 11-09-2024 16:55-0500 Respiratory rate 19 /min Domenico Loo [facility] 11-09-2024 16:45-0500 Respiratory rate 19 /min Domenico Loo [facility] 11-09-2024 16:40-0500 Respiratory rate 21 /min Domenico Loo [facility] 11-09-2024 16:19-0500 Body temperature 96.8 [degF] Domenico Loo [facility] 11-09-2024 16:15-0500 FIO2 100 1 Domenico Loo [facility] 11-09-2024 16:10-0500 FIO2 100 1 Domenico Loo [facility] 11-09-2024 16:05-0500 FIO2 60 1 Domenico Loo [facility] 11-09-2024 03:00-0500 Heart rate 93 /min Domenico Loo [facility] Encounters Encounter Date Encounter Type Care Provider Facility Start: 11-16-2024 End: 11-16-2024 ambulatory Tulio London Facility:[facility] Start: 11-16-2024 End: 11-16-2024 Patient encounter procedure Tulio London [facility] Start: 11-11-2024 End: 11-11-2024 Emergency department patient visit Jose Issa Facility:[facility] Start: 11-09-2024 End: 11-10-2024 ambulatory Domenico X Loo Facility:[facility] Start: 11-09-2024 End: 11-10-2024 Observation Domenico X Loo [facility] Start: 12-30-2022 End: 12-31-2022 ambulatory MARIETTA WASHINGTON Facility:[facility] Start: 12-29-2022 End: 12-30-2022 ambulatory MARIETTA [facility] Facility:[facility] Procedures Date Procedure Procedure Detail Performing Clinician Start: 11-09-2024 Cholecystectomy Domenico Mccurdy in Immunizations Immunization Date Immunization Notes Care Provider Emily luther 07-17-2023 influenza virus vacc ine, unspecified formulation Tulio London [facility] 07-17-2023 zoster vaccine recombinant Tulio Lita [facility] 04-16-2023 zoster vaccine recombinant Tulio London [facility] 08-21-2022 SARS-CoV-2 (COVID-19 ) mRNAMUL.[id number] Tulio London [facility] Comment on above: Result Comment: 2024: [id number] 10-23-2021 SARS-CoV-2 (COVID-19 ) mRNA-1273 vaccine Tulio Lita [facility] Comment on above: Result Comment: 2024: [id number] 01-12-2021 SARS-CoV-2 (COVID-19 ) mRNA-1273 vaccine Tulio Lita [facility] Comment on above: Result Comment: 2024: TPV65 12-15-2020 SARS-CoV-2 (COVID-19 ) mRNA-1273 vaccine Tulio Lita [facility] Comment on above: Result Comment: 2024: [id number] 07-21-2017 influenza virus vacc ine, unspecified formulation Tulio London [facility] 03-19-2010 pneumococcal polysaccharide vaccine, 23 valent Tulio London [facility] Payers Date Payer Category Payer Private Health Insurance [id number] 2021 Unknown [id number] 1955 Unknown [id number] 2.16.84 [id number] 1955 Unknown [id number] 2.16.84 [id number] 1955 Unknown [id number] 2.16.8 [id number] 1955 Unknown [id number] 2.16.8 [id number] 1955 Unknown [id number] 2.16.8 [id number] 1955 Unknown [id number] 2.16.8 [id number] 1955 Unknown [id number] 2.16.8 [id number] 1955 Unknown [id number] 2.16.8 [id number] 1955 Unknown [id number] 2.16.8 [id number] 1955 Unknown [id number] 2.16.8 [id number] 1955 Unknown [id number] 2.16.8 [id number] Social History Date Type Detail Facility Tobacco smoking status No Smokin g Status Entered [facility] Sex Assigned At Female [facility] Start: 11-16-2024 Tobacco smoking status Never s moked tobacco (finding) [facility] Tobacco smoking status Never [facility] Functional Status Date Assessment Result Facility 11-09-2024 Functional Status N/A Nacho - [facility] History and physical note 11-11-2024 Note Date [...] (11/09/24) MCHC: 34.6 (11/09/24) MCV: 87.9 (11/09/24) Luce Abs Man: 0.6 (11/09/24) Monocyte Man: 3.0 (11/09/24) MPV: 8.8 (11/09/24) Platelet: 168.0 (11/09/24) POC Device SN: [id number] (11/09/24) POC User ID: [id number] (11/09/24) POC Username: MAG [email or web address] (11/09/24) Potassium [...] a direct admit (more content not included)... [facility] Comment on above: Result Comment: Elec tronically Signed By: Chase PENN, Bryant Gutierrez\.br\Date and Time Signed: 11/09/24 16:47 EST\.br\Electronically Co-Signed By: Santana KING, Domenico Sky\.br\Date and Time Co-Signed: 11/11/24 17:28 EST Discharge summary note 11-11-2024 Note Date & Type Note Facility 11-11-2024 Note Discharge [place] [address] CIERA HAYES Date of : 1955 69 [...] UP: With: Address: When: trauma clinic [address] [facility] [address] second floor, [address] [place] [address] 11/16/2024 9:45 AM Comments: Call to schedule/confirm followup appointment With: Address: When: FELIX QURESHIMARIETTA [address] [place] [address] [phone] Within 7 to 10 days Comments: Call [...] return to clinic or to emergency room. [facility] Comment on above: Result Comment: Elec [...] 1.Identify the foods that contain carbohydrates: Rice. Chevak. Milk. Strawberries. 2.Calculate how many servings you [...] and snacks. Where to find more information [place] [employer]: diabetes.org Centers for Disease Control [...] provider. Document Revised: 05/08/2021 Document Reviewed: 05/08/2021 [employer] Patient Education 2023 [employer]. 11/10/2024 13:17:43 Hyperglycemia, Iyyf-pj-Dedw Hyperglycemia Hyperglycemia is when the sugar (glucose) [...] these instructions at home: General instructions Take vtvr-vkx-rhsozep and prescription medicines only as told by [...] have diabetes. Where to find more information [place] [employer]: www.diabetes.org Contact a doctor if: [...] provider. Document Revised: 07/18/2021 Document Reviewed: 07/19/2021 [employer] Patient Education 2023 [employer] 11/10/2024 13:17:36 Pratibha Valadez [facility]) [place], [place] Yao Mckinnon MD, FACS DISCHARGE INSTRUCTIONS [...] 911/10/2024 13:17:25 Minimally Invasive Cholecystectomy, Care After, Gqnf-ad-Mzga Minimally Invasive Cholecystectomy, Care After What can [...] Follow these instructions at home: Medicines Take mbjy-dak-pyuluea and prescription medicines only as told by [...] cannot use soap and water, use hand assembly adjuster. ?Change your bandage. ?Leave stitches (sutures) or [...] provider. Document Revised: 04/08/2022 Document Reviewed: 04/08/2022 [employer] Patient Education 2023 [employer]. 11/10/2024 13:17:22 Cholecystitis Cholecystitis Cholecystitis is inflammation [...] Follow these instructions at home: Medicines Take tjes-fqd-bnovxzo and prescription medicines only as told by [...] provider. Document Revised: 04/08/2022 Document Reviewed: 04/08/2022 [employer] Patient Education 2023 [employer]. Follow Up Care 11/08/2024 20:07:12 With:MARIETTA WASHINGTON CNP Address: [address] [place] [phone] When:11/15/2024 10:30:00 With:trauma clinic Address: [address] [place] [address] 3, second floor, [address] [place] [address]- [phone] When:11/16/2024 09:45:00 Comments:Call to schedule/confirm followup appointment [facility] Clinical Note 11-09-2024 Note Date & Type Note Facility 11-09-2024 Note Progress Note-Physic sandra Patient: CIERA HAYES Age: 69 years Sex: Female : 1955 Associated Diagnoses: None Author: Braeden Kumar Jr., DO Postoperative Information Postoperative disposition: Postoperative disposition: Home. Optimetrix number: Optimetrix number [id number]. Anesthetic utilized: General. Physical Examination Vital Signs [...] Ambulatory Surgery Unit, and To home ). [facility] Comment on above: Result Comment: Elec [...] Cap 215 mg/dL HI POC Device SN [id number] POC User ID [id number] POC Username MAG SRIVASTAVA 11/09/2024 11:39 EST Glucose Cap 216 mg/dL HI POC Device SN [id number] POC User ID [id number] POC Username KRISTIN ALICEA 11/09/2024 7:44 EST [...] E9/L NA Lymph Abs Man 1.4 E9/L Luce Abs Man 0.6 E9/L Eos Abs Man [...] WAVE IN V1/V2], OF INDETERMINATE AGE. Plan [place] [employer] Anesthesiologists (ASA) physical status classification: Class III, E. Anesthetic Preoperative Plan: Anesthesia General. Addendum by Braeden Kumar Jr., DO on J anuary 2024 12:39 EST Mallampati 3-4 [facility] Clinical Note 11-09-2024 Note Date & [...] or recorded. Proc (more content not included)... [facility] Comment on above: Result Comment: Elec tronically Signed By: Braeden Kumar Jr., DO\.zuly\Date and Time Signed: 11/09/24 12:39 EST Hospital course Narrative Note Date & Type Note Facility Hospital course Narrative No data available for this section [facility] Hospital Discharge instructions Note Date & Type Note Facility Hospital Discharge instructions No data available for this section [facility] Progress note Note Date & Type Note Facility Progress note No data available for this section [facility] Summary Purpose Family History No Family [...] DATE CREATED AUTHOR AUTHOR'S ORGANIZ ATION [facility] DATE CREATED AUTHOR AUTHOR'S ORGANIZ ATION 11/11/2024 [facility] DATE CREATED AUTHOR AUTHOR'S ORGANIZ ATION 11/12/2024 [facility] DATE CREATED AUTHOR AUTHOR'S ORGANIZ ATION 11/15/2024 [facility] DATE CREATED AUTHOR AUTHOR'S ORGANIZ ATION 01/31/2025 [facility] Patient Care team informatio n (unrecognized section and content) Personnel Name: MARIETTA WASHINGTON CNP Address: Address: [address] [place] [address] [address] Personnel Name: MARIETTA WASHINGTON CNP Address: Address: [address] [place] [address] FOR RECORDS PERTAINING TO PATIENTS WHO ARE [...] BE BASED ON THE PRIMARY CLINICAL RECORDS. [employer] [facility]. provides no warranty or guarantee of the accuracy or completeness of information in this document.
[2025-03-03 10:08] LABS: Estimated Average Glucose 143 mg/dL; Glycohemoglobin A1C 6.6 % (4.5-6.2)
[2025-03-03 10:48] LABS: Alanine Aminotransferase 29 U/L (14-59); Albumin Globulin Ratio 1.1; Albumin Level 3.5 g/dL (3.4-5.0); Alkaline Phosphatase 82 U/L (46-116); Anion Gap 9.9; Aspartate Amino Transferase 19 U/L (15-37); BUN Creatinine Ratio 32.9; Bilirubin Total 0.8 mg/dL (0.2-1.0); Calcium 9.2 mg/dL (8.5-10.1); Carbon Dioxide 27.4 mmol/L (21.0-32.0); Chloride 105 mmol/L (98-107); Chol HDL Ratio 2.8; Cholesterol 113 mg/dL (<=200); Estimated GFR (African America >60 (>=60 mL/min/1.73m^2); Estimated GFR (Non-African Ame >60 (>=60 mL/min/1.73m^2); Free T3 2.17 pg/mL (2.18-3.98); Globulin 3.3 g/dL; Glucose 96 mg/dL (74-106); HDL Cholesterol 41 mg/dL (40-60); LDL Cholesterol Calculated 44.4 mg/dL; Potassium 4.3 mmol/L (3.5-5.1); Sodium 138 mmol/L (136-145); Thyroid Stimulating Hormone 1.586 uIU/mL (0.358-3.740); Total Protein 6.8 g/dL (6.4-8.2); Triglycerides 138 mg/dL (<=150); VLDL CHOLESTEROL 27.6 mg/dL
== END 2025-03-03 09:18 | disposition home or self-care (01) ==
LOC: LAB 09:17
PROVIDERS: PCP Nurse Practitioner Family; Visit Provider Nurse Practitioner Family
DX: E11.9 Type 2 diabetes mellitus without complications (principal)
CPT/HCPCS: 80053; 80061; 82306; 83036; 83525; 83540; 84436; 84443; 84481; 85025

== ENCOUNTER 2025-08-23 09:02 | Outpatient (OUT) | payer MEDICARE, SELFPAY ==
--- OUTSIDE RECORDS SUMMARY | 2025-08-15 08:18 | XMS_ITS ---
Author Organization [facility] [place] Address [address] [place] [address] Care Team Providers Care Cnc Router Operator Name Role Phone Stacia Adan Primary Care Provider Encounters Encounter Location Date Provider Diagnosis [address] [address] 08/15/2025 Stacia Adan Diabetes mellitus E11.9 Assessments Encounter Date Diagnosis (ICD Code) Assessment Notes Treatment Notes Treatment Clinical Notes Section Notes 08/15/2025 Diabetes mellitus (ICD-10 - E11. 9) Plan Of Treatment Pending Test Test Name Order Date GLYCOHEMOGLOBIN A1C 08/15/2025 Progress Notes * Ciera HAYES SDOB: (70 yo F)Acc No.[id number]:08/15/2025 Patient:?Ciera HAYES Perfecto :1955???Age:70 Y???Sex:FemalePhone:[phone] Address:[address] [place] [address] Subjective: * Chief Complaints: * * Medical History: * Surgical History: * Hospitalization/Major Diagno stic Procedure: * Medications: Objective: * Vitals: * Physical Examination: ??? Assessment: * Assessment: 1.?Diabetes mellitus - E11.9 (Primary)??? Plan: * Treatment: ?LAB: GLYCOHEMOGLOBIN A1C * Procedure Codes: * true * Date:?Generated for Printing/Faxing/eTransmitting on:?08/23/2025 09:05 AM EST
--- OUTSIDE RECORDS SUMMARY | 2025-08-23 09:06 | XMS_ITS | Clinical Summary ---
Author Organization [employer] [facility] [employer] Address [id number] [address] [place] [address] Care Team Providers Care Equine Intern Name Role Phone CaitSanthosh real Primary Care Provider [phone] Allergies No known active allergies Medications MedicationSigDispense QuantityRefillsLast FilledStart DateEnd DateStatus lisinopril (PRINIVIL,ZESTRIL) 20 mg tablet Take 20 mg by mouth daily.Active atorvastatin (LIPITOR) 40 mg tablet Take 40 mg by mouth daily.Active metFORMIN (GLUCOPHAGE) 500 mg tablet Take 1 tablet by mouth 2 (two) times a day with meals.Active aspirin 81 mg Take 81 mg by mouth daily.Active Social History Tobacco UseTypesPacks/DayYears UsedDateSmoking Tobacco: FormerCigarettes Smokeless Tobacco: NeverAlcohol UseStandard Drinks/WeekCommentsYes0 (1 standard drink = 0.6 oz pure alcohol)occasionalChildcareAnswerDate RecordedChildcare Azyksaj7303/30/2019EmploymentAnswerDate KsbiokmnRhjnxxbebsTaebwvc63/12/2019Purpose - LifeAnswerDate RecordedPurpose and direction in gcomSbpfdwe10/11/2021 CommentsNoSex and Gender InformationValueDate RecordedSex Assigned at BirthNot on fileLegal ArxAgrksn90/06/2015 11:55 AM EDTGender IdentityNot on fileSexual OrientationNot on file Last Filed Vital Signs Vital SignReadingTime TakenCommentsBlood Dgsjkjgh492/6008 4:15 PM EDT Vwumx7735 4:15 PM CUEByweklxfdrg23.4 ??C (97.5 ??F)05/26/2018 2:21 PM EDTRespiratory Jtzc523805/26/2018 3:30 PM EDTOxygen Vkujbwhyju24%05/26/2018 4:15 PM EDTInhaled Oxygen Concentration--Stqmmx079.5 kg (248 lb)05/26/2018 10:03 AM RYOVdlbuy605.9 cm (5' 1 )05/26/2018 10:03 AM EDTBody Mass Index46.8605/26/2018 10:03 AM EDT Plan of Treatment Not on file Medical Devices ImplantedTypeAreaManufacturerDevice IdentifierShelf Expiration DateModel / Serial / LotSuture [place] Swivel - Sna - [id number] Implanted:Qty: 1 on 05/26/2018 [facility]AnchorRight: OelyfgisLwwczzy76/30/[id number] / NA / [id number] Insurance Care Teams Team MemberRelationshipSpecialtyStart DateEnd Date Santhosh Dia DO PCP - GeneralFamily Medicine05/20/18
--- OUTSIDE RECORDS SUMMARY | 2025-08-23 09:06 | XMS_ITS | Clinical Summary ---
Author Organization [facility] Address [address] [place] [address] Care Team Providers Care Small Appliance Assembly Supervisor Name Role Phone Unavailable Primary Care Provider Unavailabl e Social History Tobacco UseTypesPacks/DayYears UsedDateSmoking Tobacco: Never Assessed CommentsUnknownSex and Gender InformationValueDate RecordedSex Assigned at Not on fileLegal WqwBidczi08/15/2023 7:01 PM EDTGender IdentityNot on fileSexual OrientationNot on file Last Filed Vital Signs Vital SignReadingTime TakenCommentsBlood Csnumsum44/6308 12:00 PM EDT Pulse--Temperature--Respiratory Rate--Oxygen Saturation--Inhaled Oxygen Concentration--Ivojhg037 kg (248 lb)06/07/2018 12:00 PM ZCGXtrenk831.9 cm (5' 1 )06/07/2018 12:00 PM EDTBody Mass Index46.8606/07/2018 12:00 PM EDT Plan of Treatment Not on file
--- OUTSIDE RECORDS SUMMARY | 2025-08-23 09:06 | XMS_ITS | Patient Health Record ---
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 Name Role Phone Stacia Adan Primary Care Provider Allergies No Known Allergies Results Component Value Reference Range Notes LACTATE or LACTIC ACID Reviewed date:11/09/2024 11:58:14 AM Interpretation: Performing Lab: Notes/Report: [facility] , Lactate/Lactic Acid 1.6 0.4-2.0 mmol/L Performing Lab:see noteML - [facility] LBFREE T3 Reviewed date:03/06/2025 02:25:26 PM Interpretation: Performing Lab: Notes/Report: [facility] ,Free T32.172.18-3.98 pg/mLPerforming Lab:see noteML - [facility] LB LIPID PROFILE Reviewed date:03/06/2025 02:25:26 PM Interpretation: Performing Lab: Notes/Report: [facility] ,Leujafvvejymb904<=150 mg/tRQydrfcuqdxi588<=200 mg/dLHDL Abvwbuepsfz2703-45 mg/dL > or =60 mg/dl - LOW CARDIOVASCULAR RISK <40 mg/dl - HIGH CARDIOVASCULAR RISK LDL Cholesterol Ekcoogmman47.4 130-159 mg/dl BORDERLINE HIGH >190 mg/dl VERY HIGH <100 mg/dl OPTIMAL 100-129 mg/dl NEAR OR ABOVE OPTIMAL 160-189 mg/dl HIGH VLDL HHBEGSCFCTJ98.6Chol HDL Ratio2.8 7.1 - 11.0 MODERATE RISK 3.3 - 4.4 LOW RISK >11.0 HIGH RISK 4.4 - 7.1 AVERAGE RISK Performing Lab:see noteML - [facility] LBPROF 14(COMP METB) Reviewed date:03/06/2025 02:25:26 PM Interpretation: Performing Lab: Notes/Report: [facility] ,Tbxtly453925-945 mmol/LPotassium4.33.5-5.1 mmol/XJdiozfde84927-147 mmol/LCarbon Trjlakz60.421.0-32.0 mmol/LAnion Gap9.9Axyubvg9950-742 mg/dLBlood Urea Nitrogen 27.07.0-18.0 mg/dLCreatinine0.820.55-1.02 mg/dLEstimated GFR ( Connie>60 >=60 mL/min/1.73m 2Estimated GFR (Non- Marifer>60>=60 mL/min/1.73m 2BUN Creatinine Ratio32.1Btdowrm8.28.5-10.1 mg/dLBilirubin Total0.80.2-1.0 mg/dL Aspartate Amino Ibryzzeryem7251-16 U/LAlanine Ubiknbeaawpxqkzp0368-20 U/L Alkaline Rpiwqohehzc7659-756 U/LTotal Protein6.86.4-8.2 g/dLAlbumin Level3.53.4- 5.0 g/dLGlobulin3.3Albumin Globulin Ratio1.1Performing Lab:see noteML - [facility] LBT4 Reviewed date:03/06/2025 02:25:26 PM Interpretation: Performing Lab: Notes/Report: [facility] ,T4 Thyroxine6.804.80-13.90 ug/dLPerforming Lab:see noteML - [facility] LBTSH Reviewed date:03/06/2025 02:25:26 PM Interpretation: Performing Lab: Notes/Report: [facility] ,Thyroid Stimulating Hormone1.5860.358-3.740 uIU/mLPerforming Lab:see noteML - [facility] LBIRON Reviewed date:03/06/2025 02:25:26 PM Interpretation: Performing Lab: Notes/Report: [facility] ,Iron77.050.0-170.0 ug/dLPerforming Lab:see note - [facility] LB GLYCOHEMOGLOBIN A1C Reviewed date:03/06/2025 02:25:26 PM Interpretation: Performing Lab: Notes/Report: [facility] ,Glycohemoglobin A1C6.64.5-6.2 % ADA RECOMMENDED LIMIT 4.0 - 6.0 > 7.0 ADA THERAPEUTIC TARGET < 7.0 ACTION SUGGESTED Estimated Average Chfadpr822Zpoddhcivh Lab:see noteML - [facility] LB CBC AUTO DIFF Reviewed date:03/06/2025 02:25:26 PM Interpretation: Performing Lab: Notes/Report: [facility] ,White Blood Count6.84.0-11.0 10 3/uLRed Blood Count4.584.20-5.40 10 6/uL Cflshawllt14.012.0-16.0 g/fBBkruelxcgl81.336.0-48.0 %Mean Corpuscular Qbahgg36.0 81.0-99.0 fLMean Corpuscular Xxhxwlovlt20.426.7-34.0 pgMean Corpuscular HGB Conc 32.329.9-35.2 g/dLRed Cell Distribution Width15.811.0-15.0 %Platelet Gicsm091 150-450 10 3/uLMean Platelet Bmhqeq58.79.5-13.5 fLNeutrophils Percent Auto53.9 43.0-75.0 %Lymphocytes Percent Auto36.020.5-60.0 %Monocytes Percent Auto5.91.7- 12.0 %Eosinophils Percent Auto3.40.9-7.0 %Basophils Percent Auto0.70.2-2.0 % Immature Granulocytes Pct Auto0.10.0-0.5 %Neutrophils Absolute Auto3.71.4-6.5 10 3/uLLymphocytes Absolute Auto2.51.2-3.8 10 3/uLMonocytes Absolute Auto0.40.3-0.8 10 3/uLEosinophils Absolute Auto0.20.0-0.7 10 3/uLBasophils Absolute Auto0.10.0- 0.1 10 3/uLImmature Granulocytes Abs Auto0.010.00-0.03 10 3/uLPerforming Lab:see noteML - [facility] LBMM tomosynthesis screening BI Reviewed date:01/09/2025 05:00:28 PM Interpretation: Performing Lab: Notes/Report: Source Facility: [facility] [place] [address] [address] Mammography Report Signed Patient: CIERA HAYES MR#: [id number] : 1955 Acct:[id number] Age/Sex: 69 / F ADM Date: 01/03/25 Loc: MAMMO Attending Dr: STACIA ADAN Ordering Physician: STACIA ADAN Results: Date of Service: 01/03/25 Follow Up: Procedure(s): MM tomosynthesis screening BI Accession Number(s): [id number] cc: STACIA ADAN Patient Name: CIERA HAYES MR#: [id number] : 1955 Exam Date: 01/03/2025 Ordering Doctor: STACIA ADAN 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 MG MAMM SCREEN 3D AMNA CAD, 12/30/2022. MG MAMM SCREEN 3D AMNA CAD, 04/22/2021. MG MAMM AMNA DIAG W CAD DIG, 03/21/2009. INDICATIONS: Screening Calculator Name NCI Breast Cancer Risk Assessment Tool 5 Year Breast Cancer Risk 1.90% Lifetime Breast Cancer Risk 6.20% Personal Breast Cancer No Personal Ovarian Cancer No Treatments None Family Cancers Aunt-maternal with breast cancer at age 80; Mother with colon cancer at age 79; Sister with cervical cancer at age 60. LOCATION: [facility] BREAST COMPOSITION: There are scattered areas of fibroglandular density. FINDINGS: DIAGNOSTIC CATEGORY 1--NEGATIVE. LEFT BREAST: No significant suspicious finding. RIGHT BREAST: No significant suspicious finding. RECOMMENDATIONS: ROUTINE MAMMOGRAM AND CLINICAL EVALUATION IN 12 MONTHS. PLEASE NOTE: A NORMAL MAMMOGRAM DOES NOT EXCLUDE THE POSSIBILITY OF BREAST CANCER. A CLINICALLY SUSPICIOUS PALPABLE LUMP SHOULD BE BIOPSIED. Dictated by: Sage Nguyen DO on 01/03/2025 at 16:03 Approved by: Sage Nguyen DO on 01/03/2025 at 16:08 Dictated By: Sage Nguyen M.D. Signed By: 01/03/25 1609 DD/ 1608 TD/TT: Community Liaison:Manual Differential Reviewed date:11/09/2024 11:58:14 AM Interpretation: Performing Lab: Notes/Report: [facility] ,Segmented Neutrophils % Peckqq82.043.0-75.0Lymphocytes Percent Manual4.020.5- 60.0 %Monocytes Percent Manual8.01.7-12.0 %Eosinophils Percent Manual0.00.9-7.0 %Basophils Percent Manual0.00.2-2.0 %Segmented Neut Absolute Hbygch51.261.4-6.5 10 3/uLLymphocytes Absolute Manual1.011.20-3.80 10 3/uLMonocytes Absolute Manual 2.020.30-0.80 10 3/uLEosinophils Absolute Manual0.000.00-0.70 10 3/uLBasophils Abs Manual0.000.00-0.10 10 3/uLPerforming Lab:see noteML - [facility] LBBlood Culture 2 Reviewed date:11/14/2024 04:50:50 PM Interpretation: Performing Lab: Notes/Report: [facility] ,Blood Culture 2See Below For Report NG5D NO GROWTH AT 5 DAYS. Blood Culture 2 Performing Lab:see noteML - [facility] LBBlood Culture 1 Reviewed date:11/14/2024 04:50:50 PM Interpretation: Performing Lab: Notes/Report: [facility] ,Blood Culture 1See Below For Report Blood Culture 1 NG5D NO GROWTH AT 5 DAYS. Performing Lab:see note - [facility] LBPROF 14(COMP METB) Reviewed date:11/08/2024 04:20:43 PM Interpretation: Performing Lab: Notes/Report: [facility] ,Zhzhnl482726-334 mmol/LPotassium4.03.5-5.1 mmol/XMonhbtba0268-965 mmol/LCarbon Cthxyuf65.221.0-32.0 mmol/LAnion Gap12.4Xmdiaat89980-992 mg/dLBlood Urea Patojvtx97.07.0-18.0 mg/dLCreatinine1.060.55-1.02 mg/dLEstimated GFR ( Connie>60>=60 mL/min/1.73m 2Estimated GFR (Non- Ame52>=60 mL/min/1.73m 2 BUN Creatinine Ratio17.6Hphhygn2.48.5-10.1 mg/dLBilirubin Total1.50.2-1.0 mg/dL Aspartate Amino Twlccbznnpx2969-22 U/LAlanine Vmhsgounjzwjtavk8985-14 U/L Alkaline Fnosjrukkqd3729-930 U/LTotal Protein7.56.4-8.2 g/dLAlbumin Level3.43.4- 5.0 g/dLGlobulin4.1Albumin Globulin Ratio0.8Performing Lab:see note - [facility] LBLIPASE Reviewed date:11/09/2024 11:58:14 AM Interpretation: Performing Lab: Notes/Report: [facility] ,Jmayib462.016.0-77.0 U/LPerforming Lab:see [facility] LB LACTATE or LACTIC ACID Reviewed date:11/09/2024 11:58:14 AM Interpretation: Performing Lab: Notes/Report: [facility] ,Lactate/Lactic Acid2.80.4-2.0 mmol/LRESULTS CALLED TO JESUS BEJARANO Performing Lab:see [facility] LBCBC AUTO DIFF Reviewed date:11/09/2024 11:58:14 AM Interpretation: Performing Lab: Notes/Report: [facility] ,White Blood Count25.34.0-11.0 10 3/uLRed Blood Count4.604.20-5.40 10 6/uL Zodzjhcbls39.812.0-16.0 g/uMEjgfgbgnba19.736.0-48.0 %Mean Corpuscular Cbchgc33.7 81.0-99.0 fLMean Corpuscular Zgcgnrpoou16.026.7-34.0 pgMean Corpuscular HGB Conc 33.129.9-35.2 g/dLRed Cell Distribution Width12.911.0-15.0 %Platelet Dcbgz099 150-450 10 3/uLMean Platelet Avmuzw11.89.5-13.5 fLPerforming Lab:see [facility] LBCT abdomen pelvis w con Reviewed date:11/09/2024 11:58:14 AM Interpretation: Performing Lab: Notes/Report: Source Facility: [place] [address] CT Scan Report Signed Patient: CIERA HAYES MR#: [id number] : 1955 Acct:[id number] Age/Sex: 69 / F ADM Date: 11/08/24 Loc: ER Attending Dr: Ordering Physician: STACIA ADAN Date of Service: 11/08/24 Procedure(s): CT abdomen pelvis w con Accession Number(s): [id number] cc: STACIA ADAN [place] [address] Patient Name: CIERA HAYES MRN: [id number] date: 1955 Sex: F Assigned Patient Location: ER Current Patient Location: ER Accession/Order Number: [id number] Exam Date: 11/08/2024 17:14 Report Date: 11/08/2024 18:30 At the request of: STACIA ADAN Procedure: CT abdomen pelvis w con EXAM: CT abdomen pelvis w con TECHNIQUE: Axial CT images were obtained of the abdomen and pelvis with intravenous contrast. Sagittal and coronal reformatted images were also obtained. Dose reduction techniques were achieved by using automated exposure control and/or adjustment of mA and/or kV according to patient size and/or use of iterative reconstruction technique. HISTORY: Right lower quadrant pain COMPARISON: None. FINDINGS: Lower chest: The lower lungs are clear. Liver: Liver demonstrates diffuse decreased attenuation consistent with steatosis. Gallbladder: There is gallbladder wall thickening and pericholecystic edema. No biliary dilatation. Pancreas: The pancreas is homogeneous without evidence for mass lesion or inflammation. Spleen: The spleen is unremarkable without evidence for mass lesion. Adrenal glands: The adrenal glands are unremarkable Kidneys and bladder: The kidneys are unremarkable with no evidence for mass lesion, hydronephrosis or inflammation. The ureters demonstrate normal caliber. The urinary bladder is unremarkable. GI Tract: Stomach is unremarkable. Visualized small bowel is unremarkable without evidence for obstruction or active inflammation. The appendix is unremarkable.Diverticula are seen of the colon, more significant involving the distal colon. The visualized large bowel is otherwise unremarkable. Reproductive: The uterus has been removed. Lymph nodes: No retroperitoneal or abdominal lymphadenopathy. Vascular: The aorta is not dilated. Dense calcification at the origins of the superior mesenteric and renal arteries. Peritoneum: Small amount of free fluid in the pelvis. Abdominal wall: Degenerative changes of the lumbar spine. Degenerative grade 1 anterolisthesis of L4 on L5. CT/CT abdomen pelvis w con IMPRESSION: Findings of acute cholecystitis. Electronically authenticated by: SIMONE GEIGER Date: 11/08/2024 18:30 Dictated By: Simone Geiger M.D. Signed By: 11/08/241831 DD/ 29 TD/TT: Community Liaison:VITAMIN D 25 [place] Reviewed date:03/06/2025 02:25:26 PM Interpretation: Performing Lab: Notes/Report: [facility] ,Vitamin D32.8 20-<30 ng/mL Vit D insufficient 30-100 ng/mL Vit D sufficient <20 ng/mL Vit D deficient >100 ng/mL Potential Toxicity Performing Lab:see noteML - [facility] LBINSULIN Reviewed date:03/06/2025 02:25:26 PM Interpretation: Performing Lab: Notes/Report: [facility] ,Jlvdopo12.02.6-24.9 uIU/mL Performed at: - [facility] [address] [id number] Rivet Hole Puncher: Mateusz Carias PhD, Phone: [phone] Performing Lab:see note - [facility] LB Reason For Referral No Information Medications Medication SIG (Take, Route, Frequency, Duration) Notes Start Date End Date Status True Metrix Blood Glucose Test - use to test blood sugar In Vitro once daily; Duration: 90 days Dx: E11.9 ActiveOne Daily Womens 50 Plus -as directed OrallyActiveAspirin Adult Low Dose 81 MG1 tablet Orally Once a dayActiveVitamin D (Cholecalciferol) 25 MCG (1000 UT)1 capsule Orally Once a dayActiveDexcom G7 Sensor -as directed; Duration: 28 days11/15/2024Not-TakingDexcom G7 Utility Forester -as pwepqivg12/28/2025Not-Taking Atorvastatin Calcium 40 MGTAKE 1 TABLET BY MOUTH EVERY DAY FOR 90 DAYS; Duration: 90ActiveGarlic 1000 MGas directed OrallyActiveLisinopril 40 MGTAKE 1 TABLET BY MOUTH EVERY DAY; Duration: 90ActiveLancets Misc. -daily; Duration: 90 days5ActiveOndansetron HCl 4 MG1 tablet Orally BID prn; Duration: 7 days5ActivemetFORMIN HCl 1000 MGTAKE 1 TABLET BY MOUTH TWICE A DAY WITH A MEAL FOR 90 DAYS; Duration: 90Active Immunizations Vaccine Route Administration Date Status Comme nts Flu, Fluad (70190) 65 yrs+, single-dose syringe (4817-9059) Unknown 07/17/2023 Administered ZOSTER (SHINGLES) VACCINE (HZV)Cfwmrkr8404/16/2023dministered Social History Tobacco Use: Social History Observation Description Date Details (start date - stop date) Former Smoker NA - NA Tobacco Use/Smoking Question Answer Notes Patient is a former smoker How long has it been since you last smoked?> 10 yearsAlcohol Screen (Audit-C) Question Answer Notes Did you have a drink containing alcohol in the p ast year? Yes How many drinks did you have on a typical day when you were drinking in the past year?1 or 2 drinks (0 point)How often did you have a drink containing alcohol in the past year?Less than monthly (1 point)Lvvzmp1KwlgxuwzhgcrlfAviqyiqcVUWFN-R (Standard) Question Answer Notes Did you have a drink containing alcohol in the p ast year? No Ylbogn8VlrqtxybqhngzwWnvxwtlr Problems Problem Type SNOMED Code ICD Code Onset Dates Problem Status W/U Status Risk Notes Problem Morbid obesity (disorder) (07135 6002) Morbid (severe) obesity due to excess calories (E66.01) ActiveconfirmedProblemChronic obstructive pulmonary disease (43857001)Chronic obstructive pulmonary disease (J44.9)ActiveconfirmedProblemArthritis (8848217) Arthritis (M19.90)ActiveconfirmedProblemSeasonal allergy (041576230)Seasonal allergies (J30.2)ActiveconfirmedProblemHistory of cancer of uterine body (771109799)History of uterine cancer (Z85.42)ActiveconfirmedProblemAcute gangrenous cholecystitis (47334455)Acute gangrenous cholecystitis (K81.0)Active confirmedProblemFamily history of alcoholism (352109437)Family history of alcoholism (Z81.1)ActiveconfirmedProblemDiabetes mellitus (90157816)Diabetes mellitus (E11.9)Activeconfirmed Vital Signs Blood pressure diastolic 78 mm Hg 02/07/2025 Qrcqea52 in02/07/2025lood pressure dsirmcod228 mm Hg02/07/20259923Nhfoxx923.4 lbs 02/07/2025BMI40.88 kg/m202/07/2025 Procedures Procedure Date Ordered Date Performed Result Body Sit e Echocardiogram 02/07/2025 N/A Encounters Encounter Location Date Provider Diagnosis [facility] [address] [place] [address] 01/09/2025 Stacia [facility] [place] [address] 01/27/2025Stacia [facility] [place] [address]/[facility] [address] [place] [address]/Stacia RojasmerDiabetes mellitus E11.9[facility] [facility] [address]/Stacia [facility] [place] [address]/Stacia [facility] [place] [address]/Stacia [facility] [place] [address] 11/11/2024Stacia [facility] [place] [address]/04/2025Stacia [facility] [address] [facility] [address]/Pamela CrystalmerRLQ abdominal pain R10.31[facility] [place] [address]/Paalejandraa LocoEncounter for Medicare annual wellness exam Z00.00[facility] [place] [address]/Pamela CramerMurmur R01.1 and Diabetes mellitus E11.9[facility] [place] [address]/ Stacia CramerDiabetes mellitus E11.9 and Cholecystitis K81.9 Assessments Encounter Date Diagnosis (ICD Code) Assessment Notes Treatment Notes Treatment Clinical Notes Section Notes 02/07/2025 Murmur (ICD-10 - R01.1) 02/07/2025Diabetes mellitus (ICD-10 - E11.9) continue metformin continue monitor BS, less 130 fasting lately Patient educated on Diabetic diet... Reviewed Hypoglycemia / Hyperglycemia action plan: Instructed to call office if blood sugar above 350 or below 65 consecutively. 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 Instructed patient to check feet daily, wearsocks daily, wear proper fitting shoes, lotion feet at night with no lotion between toes, powder between toes. Follow-up with podiatry Q6M and PRN. No toenail clipping except by Podiatry. Please bring glucase meter and record to each appointment, Please feel free to call if you have questions or concerns about management or condition. Please call 1 week before medications are depleted for refills. If you are instructed to be fasting for procedure or testing, please call for dosing instructions. 11/08/2024RLQ abdominal pain (ICD-10 - R10.31)to ER if jpgrxr1411/15/2024Diabetes mellitus (ICD-10 - E11.9) start monitoring BS, see what insurance covers handouts given on diet encouraged diabetic ed 5Cholecystitis (ICD-10 - K81.9) had gallbladder removed doing ok has drain, fu tomorrow with surgeon eating ok, BM ok trouble sleeping with pain, has oxy for prn 12/15/2024Encounter for Medicare annual wellness exam (ICD-10 - Z00.00) 08/15/2025Diabetes mellitus (ICD-10 - E11.9) Plan Of Treatment Pending Test Test Name Order Date CMP (COMPLETE METABOLIC PANEL) 4 HEMOGLOBIN A1C (GLYCO) 02/09/2024 HEMOGLOBIN A1C (GLYCO) 11/15/2024 HEMOGLOBIN A1C (GLYCO) 02/07/2025 IRON, TOTAL 02/07/2025 IRON, TOTAL 02/09/2024 LIPID PANEL (CHOL/TRIG/HDL/LDL) 02/09/20 24 LIPID PANEL (CHOL/TRIG/HDL/LDL) 02/08/20 25 CBC WITH DIFF 02/09/2024 CBC WITH DIFF 11/08/2024 VITAMIN D, 25 LEVEL (TOTAL) 02/09/2024 VITAMIN D, 25 LEVEL (TOTAL) 02/07/2025 Echocardiogram 02/07/2025 Insulin Level 02/07/2025 Insulin Level 02/09/2024 GLYCOHEMOGLOBIN A1C 08/15/2025 THYROID PANEL (T4/TSH/FREE T3) 4 THYROID PANEL (T4/TSH/FREE T3) CMP (COMP MET MOE) w/eGFR CKD-EPI 2024 CMP (COMP MET MOE) w/eGFR CKD-EPI 2024 CBC WITH DIFF 02/07/2025 Insurance Providers Payer Name Payer Address Payer Phone Subscriber Number Group Number Insured Name Patient Relationship to Insured Coverage Start Date Coverage End Date [employer] MED[employer] ADV PLAN [address] [address] [place] [address] [id number] Ton Hayes - patient is the insured Medical (General) History Medical History History ICD Code Seasonal allergies J30.2 Arthritis M19.90 Chronic obstructive pulmonary disease J4 4.9 Controlled type 2 diabetes mellitus E11. 9 History of uterine cancer Z85.42 Family history of alcoholism Z81.1 Surgical History Surgery Date(Month/Year) Tonsilectomy Total HysterectomyBilateral Total Knee ReplacementRotator CuffCataract OD gallbladder removedHospitalization History Reason Date(Month/Year) see above
--- OUTSIDE RECORDS SUMMARY | 2025-08-23 09:07 | XMS_ITS | CCD ---
Author Organization [facility] Care Team Providers Care Industrial Chemistry Teacher Name Role Phone MARIETTA WASHINGTON Admitting Unavailable MARIETTA WASHINGTON Attending Unavailable SAMMY LAINEZ Primary Care Unavailable MARIETTA WASHINGTON Consulting Unavailable MARIETTA WASHINGTON Admitting Unavailable MARIETTA WASHINGTON Attending Unavailable SAMMY LAINEZ Primary Care Unavailable DR TRACE AGUIRRE V Consulting Unavailable MARIETTA WASHINGTON Unavailable Domenico Loo Attending Unavailable Domenico Loo Admitting Unavailable MD Domenico Loo Attending Unavailable MD Domenico Loo Admitting Unavailable MARIETTA WASHINGTON Primary Care Physician MD Domenico Loo Attending Unavailable MD Domenico Loo Admitting Unavailable Jose Issa Attending Unavailable Tulio London Attending UnavailDannielle Park Referring Unavailable Medications Current Medications MedicationDrug Class(es)DatesSig (Normalized)Sig (Original)acetaminophen 325 mg oral tablet (2 sources)Start: 75-91-7009puju 3 tablets by mouth every six hoursacetaminophen 325 mg Tab 975 mg = 3 tab(s), Oral, q6hr, Refills(s) 0 Start Date: 11/10/24 Status: Orderedamoxicillin 875 mg / clavulanate 125 mg oral tablet (1 source)Penicillin-class AntibacterialStart: 11-10-2024 End: 00-29-5768rspi 1 tablet by mouth every twelve hoursAugmentin 875 mg oral tablet = 1 tab(s), Oral, q12hr, X 4 day(s), # 8 tab(s), Refills(s) 0 Start Date: 11/10/24 Stop Date: 11/14/24 Status: Orderedaspirin 81 mg delayed release oral tablet (2 sources)Platelet Aggregation Inhibitor, Nonsteroidal Anti-inflammatory Drug Start: 89-48-9940pnkk 1 tablet by mouth once dailyaspirin 81 mg Oral EC Tab 81 mg = 1 tab(s), Oral, Daily, # 30 tab(s), Refills(s) 0 Start Date: 11/09/24 Status: Orderedatorvastatin 40 mg oral tablet (2 sources)HMG-CoA Reductase InhibitorStart: 77-54-3758ldlt 1 tablet by mouth once dailyatorvastatin 40 mg Tab 40 mg = 1 tab(s), Oral, Daily, # 30 tab(s), Refills(s) 0 Start Date: 11/09/24Status: OrderedGarlic preparation (2 sources)Non-Standardized Food Allergenic ExtractStart: 82-91-8304Iwswlr Refill(s) 0 Start Date: 11/09/24 Status: OrderedmetFORMIN hydrochloride 1000 mg oral tablet (2 sources)BiguanideStart: 28-33-4864aacs 1 tablet by mouth twice dailymetformin 1000 mg Tab 1,000 mg = 1 tab(s), Oral, BID, # 180 tab(s), Refills(s) 0 Start Date: 11/09/24 Status: OrderedoxyCODONE hydrochloride 5 mg oral tablet (1 source)Opioid AgonistStart: 11-10-2024 End: 44-67-0502ckkTXGKUF 5 mg Tab 5 mg = 1 tab(s), Oral, q6hr, PRN Pain 8-10, X 3 day(s), # 12 tab(s), Refills(s) 0 Start Date: 11/10/24 Stop Date: 11/13/24 Status: Orderedsennosides, residential 8.6 mg oral tablet (2 sources)Start: 11-10-2024 End: 13-71-5960jhld 1 tablet by mouth once daily at bedtime as needed for constipationsenna 8.6 mg Tab 8.6 mg = 1 tab(s), Oral, Once a day (at bedtime), PRN as needed for constipation, X 10 day(s), # 10 tab(s), Refills(s) 0 Start Date: 11/10/24 Stop Date: 11/20/24 Status: OrderedVitamin D3 1000 intl units (25 mcg) Tab (2 sources)Start: 56-44-4750qjvr 1 tablet by mouth once dailyVitamin D3 1000 intl units (25 mcg) Tab 25 mcg = 1 tab(s), Oral, Daily, Refills(s) 0 Start Date: 11/09/24 Status: Ordered Completed/Discontinued Medications MedicationDrug Class(es)DatesSig (Normalized)Sig (Original)lisinopril 20 mg oral tablet (3 sources)Angiotensin Converting Enzyme InhibitorStart: 11-10-2024 End: 29-39-9355yknoxjldbv 20 mg Tab 40 mg = 2 tab(s), Tab, Oral, Start date 11/10/24 9:00:00 AM EST, 11/09/24 7:27:00 EST Start Date: 11/10/24 Stop Date: 11/10/24 Status: CompletedStart: 89-72-8998wvyl 1 tablet by mouth once daily lisinopril 40 mg Tab 40 mg = 1 tab(s), Oral, Daily, # 30 tab(s), Refills(s) 0 Start Date: 11/09/24 Status: Ordered Problems Active Problems Problem ClassificationProblemDateDocumented DateEpisodic/ChronicBiliary tract disease (6 sources)Acute cholecystitis; Translations: [K81.0]Onset: 42-23-0670Iibqymgf Diabetes mellitus with complications (1 source)Hyperglycemia due to type 2 diabetes mellitus; Translations: [Type 2 diabetes mellitus with hyperglycemia]Onset: 32-55-5561ZlmtrhyQztxpqfz mellitus without complication (4 sources)Type 2 diabetes mellitus without complications; Translations: [TYPE 2 DM WITHOUT COMPLICATIONS]Onset: 11-47-4274HjhmdkxNrmixama mellitus without complication (1 source)Other abnormal glucose; Translations: [OTHER ABNORMAL GLUCOSE]Onset: 80-53-9668QazrvngyPdvracxrv of lipid metabolism (1 source)Hyperlipidemia, unspecified; Translations: [HYPERLIPIDEMIA UNSPECIFIED]Onset: 28-22-7203RvlpbzlInqgi nervous system disorders (1 source)Postoperative pain ; Translations: [Other acute postprocedural pain] Onset: 04-84-9093AnqcglljMthso screening for suspected conditions (not mental disorders or infectious disease) (4 sources)Encounter for screening mammogram for malignant neoplasm of breast; Translations: [ENC SCR MAMMO MALIG NEOPLASM BREAST]Onset: 53-33-0578Hqabmgsm Residual codes; unclassified (1 source)Family history of malignant neoplasm of breast; Translations: [FAMILY HX MALTRISTEN NEOPLASM OF BREAST]Onset: 59-18-6277NoqmwsdiMmwywywb codes; unclassified (1 source)Family history of malignant neoplasm of digestive organs; Translations: [FAM HX JERRELL NEOPLASM DIGESTIV ORGN]Onset: 51-99-5139Gmbkudur Residual codes; unclassified (1 source)Family history of malignant neoplasm of other genital organs; Translations: [FAM HX JERRELL NEOPLSM OTH GENIT ORGN]Onset: 86-62-9783Zxzdkofg Past or Other Problems Problem ClassificationProblemDateDocumented DateEpisodic/ChronicChronic obstructive pulmonary disease and bronchiectasis (1 source)Chronic obstructive pulmonary disease and gszdtsgephjido34-57-4640 Results Test NameValueInterpretationReference RangeFacilityTrauma Office/Clinic Noteon 34-94-2632Lqqnho Office/Clinic NoteTrauma Office/Clinic Note Chief Complaint s/p cholecystectomy HPI [...] CALI drain output has been minimal and serosanguineousper denies any dark green/brown or bile appearing fluid. Has been tolerating regular without issue,no fevers or chills, ambulating without issue. Review [...] zoster vaccine, inactivated 04/16/2023 Recorded SARS-CoV-2 (COVID-19) mRNAMUL.ORD![id number] 08/21/2022 Recorded 2024-11-16: TPV65 SARS-CoV-2 (COVID-19) mRNA-1273 vaccine 10/23/2021 Recorded 2024-11-16: TPV65 SARS-CoV-2 (COVID-19) mRNA-1273 vaccine 01/12/2021 Recorded 2024-11-16: TPV65 SARS-CoV-2 (COVID-19) mRNA-1273 vaccine 12/15/2020 Recorded 2024-11-16: TPV65 influenza virus vaccine, inactivated 07/21/2017 Recorded pneumococcal 23-valent vaccine 03/19/2010 RecordedNoOhio State Harding HospitalComment on above:Result Comment: Electronically Signed By: Dannielle Kim PA-C\.br\Date and Time Signed: 11/16/24 11:17 EST\.br\Electronically Co- Signed By: Lita KING, Tulio López\.br\Date and Time Co-Signed: 11/16/24 11:31 ESTSurgical Pathology Reporton [id number] Pathology ReportThe [facility] System [address] [place] [address]- Surgical Pathology Report Collected Date/Time: 11/09/2024 14:16 EST Pathologist: Michael KING PhD, Melania Carlson Received Date/Time: 11/10/2024 08:31 EST Santana KING, Domenico Loo MD, Domenico Osorio Surgical Pathology Report - 11/14/2024 11:01 EST [...] 1 - Cystic duct region 2-6 - Geothermal Production Manager portion of the remainder of gallbladder (DC) DC:MCA Microscopic Description Microscopic examination performed unless gross only specified. This report was transcribed using voice recognition technology and might contain unintended computerized body shop manager errors.[facility] Jewish HospitalComment on above:Performed By: #### [id number] #### [facility] [address] [place] [id number] Clinical Summaryon [id number] Clinical SummaryED Clinical Summary [address] [address] ED Clinical Summary Person Information Name: CIERA HAYES Connie/[facility] Age: 69 Years : 1955 Sex: Female Language: Indian PCP: MARIETTA WASHINGTON CNP Marital Status: Visit [...] 11/11/2024 12:14:46 11/11/2024 12:14:46 11/11/2024 12:14:46 ADDRESS: [place] [id number] PHYS DOC NOTES: MEDICAL INFORMATION: Prescriptions Given: Medications to Continue with No Changes Other Medications acetaminophen (acetaminophen 325 mg Tab) 3 Tablets By Mouth every 6 hours. amoxicillin-clavulanate (Augmentin 875 mg oral tablet) 1 Tablets [...] Instructions: Follow up: With: Address: When: Domenico [address], [address], [facility] [address] [place] [phone] Business (1) In 5 days 11/16/2024 With: Address: When: MARIETTA WASHINGTON [address] [place] [phone] Business (1) In 3 days DIAGNOSIS: Visit for wound checkNormalFisher Ashok Medical CenterED Note-Nursingon 00-96-8981VB Note-NursingED Note-Nursing RN sent pt home with x3 t-sponge dressings and tape per Dr. Loo's requestNormal [facility] CenterED Note-Physicianon 96-54-2295CV Note-PhysicianED Note-Physician Basic Information Time Seen: Jose Issa [...] area. The tube does seem to be stitchedto the skin surrounding the area Head: Normocephalic, [...] Loo In 5 days 11/16/2024 EST [address], [address] [phone] Business (1) Additional Instructions: MARIETTA WASHINGTON In 3 days [address], [facility] [place] [address] [phone] Business (1) Additional Instructions: Problem List/Past Medical [...] data available. Diagnostic Results No qualifying data available.The Jewish HospitalComment on above: Result Comment: Electronically Signed By: Jose Issa DO\.br\Date and Time Signed: 11/11/24 11:43ESTED Patient Education Noteon 14-82-6948FE Patient Education NoteED Patient Education NoteNoTriHealth [facility] Patient Summaryon 88-03-4680QN Patient SummaryED Patient Summary [place] [address] Patient Discharge Instructions Person Information Name: CIERA HAYES Age: 69 Years Arrival Date: 11/11/2024 10:55:52 Discharge Diagnosis: Visit for wound check Primary Care Physician: MARIETTA WASHINGTON CNP Provider Information Primary Provider: Jose Issa DO Advanced Forming Process Line Worker:None The exam and treatment you received in the Emergency Department were for an urgent problem and are not intended as complete care. It is important that you follow up with a doctor, nurse practitioner,or physician???s conference assistant for ongoing care. If your symptoms become worse or you do not improve asexpected and you are unable to reach your usual health care provider, you should return to the Emergency Department. We are available 24 hours a day. CIERA HAYES has been given the following list of patient education materials, prescriptions andfollow-up instructions: Follow-up Instructions: With: Address: When: Domenico Loo [address], [address], [facility] [address] [place] [phone] Business (1) In 5 days 11/16/2024 With: Address: When: MARIETTA WASHINGTON [address], [facility] [address] [phone] Business (1) In 3 days In the event that this physician does not participate in your insurance network, please consult with your insurance company to find a nearby participating provider. Patient Education Materials: A MESSAGE TO ALL PATIENTS REGARDING OPIOIDS PRESCRIPTION OPIOIDS: WHAT YOU NEED TO KNOW Prescription opioids can be used to help relieve gemeltso-bi-jzsfrq pain and are often prescribed following a [...] guidance from the Food and Drug Administration (www.fda.gov/Drugs/ResourcesForYou). ??? Visit www.cdc.gov/drugoverdose to learn about the risks of opioids abuse and overdose. ??? If you andie (more content not included)...[facility] Main OR Intraoperative Recordon 69-56-1770Ufdr OR Intraoperative RecordMain OR Intraoperative Record IntraOp Document Type FT Summary Primary Physician: Domenico Loo MD Finalized Date/Time: 11/11/24 08:40:02 Pt. Name: CIERA HAYES D.O.B./Sex: 1955 Female Med Rec #: [id number] Physician: Domenico Loo MD Financial #: [id number] Pt. Type: O Room/Bed: 09/01 Admit/Disch: 11/09/24 03:12:02 - 11/10/24 18:03:57 Institution: [...] Gutiérrez Role Performed Surgeon - Primary Anesthesiologist Wreath Machine Tender - Primary Distribution Operation Supervisor Time In 11/09/24 13:14:00 11/09/24 13:03:00 11/09/24 13:03:00 Time Out 11/09/24 16:17:00 11/09/24 16:17:00 11/09/24 16:17:00 Procedure CHOLECYSTECTOMY CHOLECYSTECTOMY CHOLECYSTECTOMY LAPAROSCOPIC W/ LAPAROSCOPIC W/ LAPAROSCOPIC W/ CHOLANGI(.) CHOLANGI(.) CHOLANGI(.) Comments dr. kumar supervising out for break at [phone] Last Modified By: Manuel SALCIDO, Arianna Jackson RN, Arianna Jackson RN, Arianna Gutiérrez 11/09/24 Richa Gutiérrez 11/09/24 Richa Gutiérrez 11/09/24 16:16:58 16:16:58 16:16:58 Entry 4 Entry 5 Entry 6 Case Attendee Ruby Lynne DINKEY OPERATOR, Christine Demarco RN, Victorina Boogie Role Performed Scrub - Primary DINKEY OPERATOR/SA Staff - Other Time In 11/09/24 13:03:00 11/09/24 13:05:00 11/09/24 13:05:00 Time Out 11/09/24 16:17:00 11/09/24 13:19:00 11/09/24 13:17:00 Procedure CHOLECYSTECTOMY CHOLECYSTECTOMY CHOLECYSTECTOMY LAPAROSCOPIC W/ LAPAROSCOPIC W/ LAPAROSCOPIC W/ CHOLANGI(.) CHOLANGI(.) CHOLANGI(.) Comments helping in room Last Modified By: Manuel SALCIDO, Arianna Jackson RN, Arianna Jackson RN, Arianna Gutiérrez 11/09/24 Richa Gutiérrez 11/09/24 Richa Gutiérrez 11/09/24 16:16:58 16:16:58 16:16:58 Entry 7 Entry 8 Case Attendee Chase PENN, Jean Carlos Rojas Role Performed PA/HOMICIDE SQUAD COMMANDING OFFICER Wreath Machine Tender - Relief Time In 11/09/24 13:14:00 11/09/24 [...] X-ray Applicable) PreOp Antibiotic Yes Time Out Santana KING, Joy Villa Given Participants Jose FERRIS, Manuel SALCIDO, Arianna Gutiérrez, Ruby Lynne Time Out Complete 11/09/24 13:22:00 Outcomes Met? Yes Last Modified By: Manuel SALCIDO, Arianna Gutiérrez 11/09/24 13:56:16 Post-Care Text: The patient is free from signs and symptoms of injury caused by extraneous objects Allergy Information FT Pre-Care Text: Verifies allergies Entry 1 Allergies Reviewed? Yes Allergies Reviewed Self/Patient With Outcomes Met? Yes Last Modified By: Manuel SALCIDO, Arianna Gutiérrez 11/09/24 13:56:21 Post-Care Text: The patient received appropriate medication(s) safely administered during the perioperative period Surgical Procedures FT Entry 1 Procedure Description Procedure CHOLECYSTECTOMY Modifiers . LAPAROSCOPIC W/ CHOLANGIOGRAM Surgeon Description LAPAROSCOPIC CHOLECYSTECTOMY, INTRAOPERATIVE TAP BLOCK Primary Procedure Yes Primary Surgeon Santana KING, Domenico Sky Start 11/09/24 13:24:00 Stop 11/09/24 16:06:00 Anesthesia [...] Modified By: Arianna Jackson RN 11/09/24 14:07:26 Post-C (more content not included)...NormalGrant HospitalABO/Rh History Checkon 04-94-9921EZO/Rh History CheckType verified by second sNormal Grant HospitalComment on above:Performed By: #### [id number] #### [facility] [address] [place], [place] [address]LHA/Rh Retypeon 78-40-8332YKB/Rh Retype InterpPositiveInvalid Interpretation [facility] Hospital CompanyComment on above:Performed By: #### [id number] #### [facility] [address] [place], [place] [address]ZMBNY BANKOrdered By: Hortensia Heck on 12-05-6662BIZ/Rh Retype InterpPositiveInvalid Interpretation [facility] BB SubsectionBMPon 88-26-9570Agags gap [Moles/Vol]12 mmol/LNormal6-16Grant HospitalComment on above: Performed By: #### [id number] #### [facility] [address] [place], [place] [address]Gpemxum [Mass/Vol]8.3 mg/dLLow8.9-11.1[facility] Medical CenterComment on above:Performed By: #### [id number] #### [facility] [address], [place] [address]Pjvfgvou [Moles/Vol]101 mmol/INzrfxt332-438YlbhhcGrant HospitalComment on above:Performed By: #### [id number] #### [facility] [address] [place], [place] [address]SN5 [Moles/Vol]24 mmol/NDfnlfu82-21ZtrasfGrant Hospital Comment on above:Performed By: #### [id number] #### [facility] [address] [place], [place] [address]Sfxbubkogk [Mass/Vol]1.2 mg/dLNormal0.5-1.3FUniversity Hospitals Portage Medical CenterComment on above:Performed By: #### [id number] #### [facility] [address], [place] [address]Qleybuf [Mass/Vol]245 mg/dFLvkf05-732VqvkujGrant HospitalComment on above:Performed By: #### [id number] #### [facility] [address], [place] [address]Ujlboksdp [Moles/Vol]3.9 mmol/LNormal3.5-5.3FUniversity Hospitals Portage Medical CenterComment on above:Performed By: #### [id number] #### [facility] [address] [place], [place] [address]Wrtevz [Moles/Vol]133 mmol/TWtq847-851XvtbwtGrant HospitalComment on above:Performed By: #### [id number] #### [facility] [address], [place] [address]Pmem nitrogen [Mass/Vol]35 mg/dLHigh5-21Grant HospitalComment on above:Performed By: #### [id number] #### [facility] [address] [place], [place] [address]Umop nitrogen/Creatinine [Mass ratio]29 No ZgypoOkhz62-73KhrylzGrant HospitalComment on above:Performed By: #### [id number] #### [facility] [address] [place], [place] [address]FIB w/ Auto Diffon 49-45-1720Gtpyzajay/100 WBC (Bld)0.1 %Normal 0.0-2.0Grant HospitalComment on above:Performed By: #### [id number] #### [facility] [address] [place] [address]Cdvsgbqjr/Leukocytes Auto (Bld) [Pure # fraction]0.0 E9/LNormal 0.0-0.2FUniversity Hospitals Portage Medical CenterComment on above:Performed By: #### [id number] #### [facility] [address] [place] [address]Plbxgdfxnfm (Bld) [#/Vol]0.0 E9/LNormal0.0-0.5FUniversity Hospitals Portage Medical CenterComment on above:Performed By: #### [id number] #### [facility] [address] [place] [address]Syixqyuzfek/100 WBC (Bld)0.0 %Normal0.0-8.0Grant HospitalComment on above:Performed By: #### [id number] #### [facility] [address] [place] [address]Tzutaypaauo distribution width (RBC) [Ratio]13.7 %Normal 10.9-14.2FUniversity Hospitals Portage Medical CenterComment on above:Performed By: #### [id number] #### [facility] [address] [place] [address]Elmlohediq (Bld) [Volume fraction]30.5 %Low34.0-46.0Grant HospitalComment on above:Performed By: #### [id number] #### [facility] [address] [place] [address]Kegnpdlkux (Bld) [Mass/Vol]10.1 g/dLLow12.0-16.0Grant HospitalComment on above:Performed By: #### [id number] #### [facility] [address] [place] [address]Wordklksowj (Bld) [#/Vol]0.5 E9/LLow1.0-4.0Grant HospitalComment on above:Performed By: #### [id number] #### [facility] [address] [place] [address]Mjaposwjcsz/100 WBC (Bld)3.9 %Low14.0-50.0Grant HospitalComment on above:Performed By: #### [id number] #### [facility] [address] [place] [address]JQC (RBC) [Entitic mass]30.1 fhViwzit81.0-34.0Grant HospitalComment on above:Performed By: #### [id number] #### [facility] [address] [place] [address]NLET (RBC) [Mass/Vol]33.2 g/hDCexseb59.4-36.0Grant HospitalComment on above:Performed By: #### [id number] #### [facility] [address] [place] [address]DAK (RBC) [Entitic vol]90.9 nUUvymeq08.0-100.0Grant HospitalComment on above:Performed By: #### [id number] #### [facility] [address] [place] [address]Rewktlgdc (Bld) [#/Vol]0.6 E9/LNormal0.2-1.0Grant HospitalComment on above:Performed By: #### [id number] #### [facility] [address] [place] [address]Rsspbukzgdd (Bld) [#/Vol]11.4 E9/LHigh2.0-7.5FUniversity Hospitals Portage Medical CenterComment on above:Performed By: #### [id number] #### [facility] [address] [place] [address]Tmszkmkkkaz/100 WBC (Bld)90.9 %High36.0-75.0Grant HospitalComment on above:Performed By: #### [id number] #### [facility] [address] [place] [address]Kpoumpet mean volume (Bld) [Entitic vol]9.5 fLNormal6.4-10.8 Grant HospitalComment on above:Performed By: #### [id number] #### [facility] [address] [place] [address]Yxbzsrvfk (Bld) [#/Vol]151.0 E9/HTpnozk159.0-500.0Grant HospitalComment on above:Performed By: #### [id number] #### [facility] [address] [place] [address]IQV (Bld) [#/Vol]3.4 E12/LLow4.3-5.9[facility] Comment on above:Performed By: #### [id number] #### [facility] [address] [place] [address]QNF corrected for nucl RBC Auto (Bld) [#/Vol]12.5 E9/LHigh 4.0-11.0Grant HospitalComment on above:Performed By: #### [id number] #### [facility] [address] [place] [address]RYNBGGEUDRulgkcw By: Tamanna Barba on 11-73-4421Gstrume [Mass/Vol]248 mg/wYWdyq37 - 99 mg/dLSAINT FRANCIS [facility] POC SubsectionComment on above:Result Comment: Notified RN/MDPOC UsernamMonika Billingsley Interpretation Code [facility] POC SubsectionSodium [Moles/Vol][id number] mmol/LInvalid Interpretation CodeFT POC SubsectionSodium [Moles/Vol][id number] mmol/LInvalid Interpretation CodeSAINT FRANCIS [facility]OSPITAL [facility] [place] POC SubsectionGlucose [Mass/Vol]232 mg/tECmnl39 - 99 mg/dLSAINT FRANCIS HOSPITAL SOU[facility] [place] POC SubsectionComment on above:Result Comment: Notified RN/MDPOC UsernameBSHAYLA BUCKLEYYLEIGHInvalid Interpretation CodeSAINT FRANCIS [facility] [place] POC SubsectionSodium [Moles/Vol] [id number] mmol/LInvalid Interpretation CodeSAINT FRANCIS [facility] [place] POC SubsectionSodium [Moles/Vol][id number] mmol/LInvalid Interpretation CodeSAINT FRANCIS [facility]OSPITAL S[facility] [place] POC Subsection CHEMISTRYOrdered By: SYSTEM SYSTEM on 98-04-9402Nsjcicl [Mass/Vol]3.4 g/dLNormal 3.3 - 5.0 gm/dLRemisol ChemAlbumin/Globulin [Mass ratio]1.4 {ratio}Normal1.1 - 2.2Remisol ChemALP [Catalytic activity/Vol]57 [iU]/gBumwij56 - 98 Int._Unit/L Remisol ChemALT No additional P-5'-P [Catalytic activity/Vol]69 [iU]/dHigh6 - 46 Int._Unit/LRemisol ChemAnion gap [Moles/Vol]12 mmol/LNormal6 - 16 mEq/LRemisol ChemAST [Catalytic activity/Vol]84 [iU]/dHigh5 - 43 Int._Unit/LRemisol Chem Bilirubin [Mass/Vol]1.0 mg/dLNormal0.0 - 1.1 mg/dLRemisol ChemBilirubin.direct [Mass/Vol]0.3 mg/dLNormal0.0 - 0.4 mg/dLRemisol ChemBilirubin.indirect [Mass or moles/Vol]0.7 mg/dLNormal0.1 - 0.9 mg/dLRemisol ChemCalcium [Mass/Vol]8.3 mg/dL Low8.9 - 11.1 mg/dLRemisol ChemChloride [Moles/Vol]101 mmol/PTqhsag219 - 111 mmol/LRemisol ChemCO2 [Moles/Vol]24 mmol/SDozluc12 - 31 mmol/LRemisol Chem Creatinine [Mass/Vol]1.2 mg/dLNormal0.5 - 1.3 mg/dLRemisol RmkefMUK76 mL/min/1.73 m2Low>=59mL/min/1.73 f0Bqcgfvb ChemGlobulin (S) [Mass/Vol]2.5 g/dL Normal1.4 - 4.0 gm/dLRemisol ChemGlucose [Mass/Vol]245 mg/tAIfwo75 - 199 mg/dL Remisol ChemPotassium [Moles/Vol]3.9 mmol/LNormal3.5 - 5.3 mmol/LRemisol Chem Protein [Mass/Vol]5.9 g/dLLow6.0 - 7.8 gm/dLRemisol ChemSodium [Moles/Vol]133 mmol/CPzp458 - 145 mmol/LRemisol ChemUrea nitrogen [Mass/Vol]35 mg/dLHigh5 - 21 mg/dLRemisol ChemUrea nitrogen/Creatinine [Mass ratio]29 mg/tkWutt44 - 20Remisol ChemCapillary Glucose POCon 51-77-6931Dlcjhkr [Mass/Vol]248 mg/xGHgiq89-59XneylcGrant HospitalComment on above:Result Comment: Notified RN/MDPerformed By: #### [id number] #### [facility] [address], [place] [address]Qbilxpb [Mass/Vol]232 mg/xFUjju55-86OopwwzGrant Hospital Comment on above:Result Comment: Notified RN/MDPerformed By: #### [id number] #### [facility] [address], [place] [address]Qckhlzqec Note-Nursingon 34-74-5796Ubisulroy Note-Nursing Discharge Note-Nursing CIERA HAYES :1955 Visit [...] Medications List acetaminophen (acetaminophen 325 mg Tab) amoxicillin-clavulanate (Augmentin 875 mg oral tablet) aspirin (aspirin [...] for severe pain. No lifting heavier than 15pounds for 3 weeks. No swimming, submerging, soaking until CALI drain is removed and incision is healed. You may shower if the wound is covered. New Follow Up Appointments after Discharge Follow Up with trauma clinic When: 11/16/2024 09:45 AM EST Comments: Call to schedule/confirm followup appointment Where: [address] [place] [address] 3, second floor, [address] [place] [address]- [phone] Follow Up with MARIETTA WASHINGTON CNP When: 11/15/2024 10:30 AM EST Where: [address] [place] [address] [phone] Medications What How Much When Why Instructions Next Dose New acetaminophen (acetaminophen 325 mg Tab) 3 Tablets By Mouth Every 6 hours New amoxicillin-clavulanate (Augmentin 875 mg oral tablet) 1 Tablets By Mouth Every 12 hours Duration: 4 Days Printed Prescription New oxycodone (oxyCODONE 5 mg Tab) 1 Tablets By Mouth Every 6 hours as needed for Pain 8-10 Acute cholecystitis Duration: 3 Days Printed Prescription New senna (senna 8.6 mg Tab) 1 Tablets By Mouth Once a day (at bedtime) as needed for as needed forconstipation Duration: 10 Days Printed Prescription Unchanged aspirin [...] It is important to know how many carbohydrates(in grams or by serving size) you can [...] How do I co (more content not included)...[facility] Discharge Note-NursingDischarge Note-Nursing CIERA HAYES :1955 Visit Date:11/09/2024 Inpatient [...] Medications List acetaminophen (acetaminophen 325 mg Tab) amoxicillin-clavulanate (Augmentin 875 mg oral tablet) aspirin (aspirin [...] for severe pain. No lifting heavier than 15pounds for 3 weeks. No swimming, submerging, soaking until CALI drain is removed and incision is healed. You may shower if the wound is covered. New Follow Up Appointments after Discharge Follow Up with trauma clinic When: 11/16/2024 09:45 AM EST Comments: Call to schedule/confirm followup appointment Where: [facility] 3, second floor, [address] [place] [address]- [phone] Follow Up with MARIETTA WASHINGTON CNP When: 11/15/2024 10:30 AM EST Where: [address] [place] [address] [phone] Medications What How Much When Why Instructions Next Dose New acetaminophen (acetaminophen 325 mg Tab) 3 Tablets By Mouth Every 6 hours New amoxicillin-clavulanate (Augmentin 875 mg oral tablet) 1 Tablets By Mouth Every 12 hours Duration: 4 Days Printed Prescription New oxycodone (oxyCODONE 5 mg Tab) 1 Tablets By Mouth Every 6 hours as needed for Pain 8-10 Acute cholecystitis Duration: 3 Days Printed Prescription New senna (senna 8.6 mg Tab) 1 Tablets By Mouth Once a day (at bedtime) as needed for as needed forconstipation Duration: 10 Days Printed Prescription Unchanged aspirin [...] It is important to know how many carbohydrates(in grams or by serving size) you can [...] How do I co (more content not included)...[facility]ingDischarge Note-Nursing CIERA HAYES :1955 Visit Date:11/09/2024 Inpatient [...] Medications List acetaminophen (acetaminophen 325 mg Tab) amoxicillin-clavulanate (Augmentin 875 mg oral tablet) aspirin (aspirin [...] for severe pain. No lifting heavier than 15pounds for 3 weeks. No swimming, submerging, soaking until CALI drain is removed and incision is healed. You may shower if the wound is covered. New Follow Up Appointments after Discharge Follow Up with trauma clinic When: 11/16/2024 09:45 AM EST Comments: Call to schedule/confirm followup appointment Where: [facility] 3, second floor, [address] [place] [address]- [phone] Follow Up with MARIETTA WASHINGTON CNP When: 11/15/2024 10:30 AM EST Where: [address] [address] [phone] Medications What How Much When Why Instructions Next Dose New acetaminophen (acetaminophen 325 mg Tab) 3 Tablets By Mouth Every 6 hours Resume as needed every 6 hours for pain to keep pain under control New amoxicillin-clavulanate (Augmentin 875 mg oral tablet) 1 Tablets [...] (at bedtime) as needed for as needed forconstipation Duration: 10 Days Printed Prescription 9pm Unchanged [...] Tab) 1 Tablets By Mouth Every day 11/119am Unchanged metformin (metformin 1000 mg Tab) 1 [...] It is important to know how many carbohydrates(in grams or by serving size) you can [...] peas, and corn. ??? (more content not included)...[facility] Ordered By: SYSTEM SYSTEM on 86-64-5401Jzdnqxoqd/100 WBC (Bld)0.1 %Normal0.0 - 2.0 %Remisol HemeBasophils/Leukocytes Auto (Bld) [Pure # fraction]0.0 E9/LNormal 0.0 - 0.2 E9/LRemisol HemeEosinophils (Bld) [#/Vol]0.0 E9/LNormal0.0 - 0.5 E9/L Remisol HemeEosinophils/100 WBC (Bld)0.0 %Normal0.0 - 8.0 %Remisol Heme Erythrocyte distribution width (RBC) [Ratio]13.7 %Vrcumw05.9 - 14.2 %Remisol HemeHematocrit (Bld) [Volume fraction]30.5 %Low34.0 - 46.0 %Remisol Heme Hemoglobin (Bld) [Mass/Vol]10.1 g/dLLow12.0 - 16.0 gm/dLRemisol HemeLymphocytes (Bld) [#/Vol]0.5 E9/LLow1.0 - 4.0 E9/LRemisol HemeLymphocytes/100 WBC (Bld)3.9 % Low14.0 - 50.0 %Remisol HemeMCH (RBC) [Entitic mass]30.1 ctZsldtu21.0 - 34.0 pg Remisol HemeMCHC (RBC) [Mass/Vol]33.2 g/zAEuakwe07.4 - 36.0 gm/dLRemisol HemeMCV (RBC) [Entitic vol]90.9 fHLihhnu36.0 - 100.0 fLRemisol HemeMonocytes (Bld) [#/Vol]0.6 E9/LNormal0.2 - 1.0 E9/LRemisol HemeMonocytes/100 WBC (Bld)5.1 % Normal4.0 - 14.0 %Remisol HemeNeutrophils (Bld) [#/Vol]11.4 E9/LHigh2.0 - 7.5 E9/LRemisol HemeNeutrophils/100 WBC (Bld)90.9 %High36.0 - 75.0 %Remisol Heme Platelet mean volume (Bld) [Entitic vol]9.5 fLNormal6.4 - 10.8 fLRemisol Heme Platelets (Bld) [#/Vol]151.0 E9/POvefuy781.0 - 500.0 E9/LRemisol HemeRBC (Bld) [#/Vol]3.4 E12/LLow4.3 - 5.9 E12/LRemisol HemeWBC corrected for nucl RBC Auto (Bld) [#/Vol]12.5 E9/LHigh4.0 - 11.0 E9/LRemisol HemeHep Func Panelon 11-10-2024 Albumin [Mass/Vol]3.4 g/dLNormal3.3-5.0[facility] HospitalComment on above:Performed By: #### [id number] #### [facility] [address], [place] [address]Qbarlfk/Globulin (S) [Mass conc ratio]1.1Ygleej6.1-2.2FUniversity Hospitals Portage Medical CenterComment on above:Performed By: #### [id number] #### [facility] [address], [place] [address]DTI [Catalytic activity/Vol]57 Int._Unit/CXjetti81-98UmhfiyGrant HospitalComment on above:Performed By: #### [id number] #### [facility] [address], [place] [address]CTP No additional P-5'-P [Catalytic activity/Vol]69 Int._Unit/L High6-46Grant HospitalComment on above:Performed By: #### [id number] #### [facility] [address], [place] [address]XRK [Catalytic activity/Vol]84 Int._Unit/LHigh5-43Grant HospitalComment on above:Performed By: #### [id number] #### [facility] [address], [place] [address]Mehlfetgp [Mass/Vol]1.0 mg/dLNormal0.0-1.1FUniversity Hospitals Portage Medical CenterComment on above:Performed By: #### [id number] #### [facility] [address], [place] [address]Uwhxbrmrq.direct [Mass/Vol]0.3 mg/dLNormal0.0-0.4FUniversity Hospitals Portage Medical CenterComment on above:Performed By: #### [id number] #### [facility] [address], [place] [address]Hjpxyhjvg.indirect [Mass or moles/Vol]0.7 mg/dLNormal0.1-0.9 Grant HospitalComment on above:Performed By: #### [id number] #### [facility] [address] [place] [address]Xpgbznbo (S) [Mass/Vol]2.5 g/dLNormal1.4-4.0Grant HospitalComment on above:Performed By: #### [id number] #### [facility] [address], [place] [address]Mtraqqs [Mass/Vol]5.9 g/dLLow6.0-7.8[facility] Comment on above:Performed By: #### [id number] #### [facility] [address] [place] [address]Qvpgqxupm Clinical Summaryon [id number] Clinical SummaryInpatient Clinical Summary [address] [address] Clinical Summary Person Information: Name: CIERA HAYES Age: 69 Years : 1955 Sex: Female PCP: MARIETTA WASHINGTON CNP Marital Status: Race: White Ethnicity: Non- or Language: Indian Visit Id: Visit Reason: ACUTE CHOLECYSTITIS Speciality: Acuity: Enc Type: Observation Med Service: Surgery Arrival: 11/09/2024 03:12:02 Discharge: Dispo Type: Address: [place] [phone] Provider Notes: Diagnosis: 2:Poorly controlled diabetes mellitus; [...] 3 Tablets By Mouth every 6 hours. amoxicillin-clavulanate (Augmentin 875 mg oral tablet) 1 Tablets [...] Follow up: With: Address: When: trauma clinic [address] [place] [address], second floor, [address] [place] [phone] 11/16/2024 9:45 AM Comments: Call to schedule/confirm followup appointment With: Address: When: MARIETTA WASHINGTON CNP [facility] [place] [id number] [phone] Within 7 to 10 days Comments: Call to schedule appointment for hospital follow up and high blood sugars Patient Education Information: Carbohydrate Counting for Diabetes Mellitus, Adult; Hyperglycemia, Awaf-ps-Cgyx; Mckinnon - JacksonPratt Drainage Tube Care(CUSTOM); Minimally Invasive Cholecystectomy, Care After, Ytgg-bi-Lvki; CholecystitisNormalFormerly [facility] Centerer [facility] CenterInpatient Patient Summaryon [id number] Patient Summary Inpatient Patient Summary [address] [address] Patient Discharge Instructions PERSON INFORMATION Name: CIERA HAYES Date of : 1955 Current Date: 11/10/2024 13:52:42 PHYSICIANS Admitting Physician: Domenico Loo MD Primary Care Physician: MARIETTA WASHINGTON CNP PCP Phone Number: [phone] Comment: Discharge Diagnosis: 2:Poorly controlled diabetes mellitus; 3:Acute post- operative pain Condition at Discharge: Improved CIERA HAYES [...] Follow up: With: Address: When: trauma clinic [address] [place] [address] 3, second floor, [address] [place] [address] 11/16/2024 9:45 AM Comments: Call to schedule/confirm followup appointment With: Address: When: MARIETTA WASHINGTON CNP [address] [facility], [place] [phone] Within 7 to 10 days Comments: Call to schedule appointment for hospital follow up and high blood sugars In the event that this physician does not participate in your insurance network, please consult with your insurance company to find a nearby participating provider. Comment: ABIGAIL Caba ELLEN S, have received the attached patient education materials/instructions and have verbalized understanding: Patient Signature Date Clinican/Nurse Signature Date HERE ARE THE MEDICATION CHANGES THAT OCCURRED DURING YOUR HOSPITAL STAY New Medications Printed Prescriptions amoxicillin-clavulanate (Augmentin 875 mg oral tablet) 1 Tablets By Mouth every 12 hours for 4 Days. Refills: 0. Last Dose: Next Dose: oxycodone (oxyCODONE 5 mg Tab) 1 Tablets By Mouth every 6 hours as needed Pain 8-10 for 3 Days. Refills: 0. Last Dose: Next Dose: senna (senna 8.6 mg Tab) 1 Tablets By Mouth once a day (at bedtime) as needed as needed for constipation for 10 Days. Refills: 0. Last Dose: Next Dose: Other Medications acetaminophen (acetaminophen 325 mg Tab) 3 Tablets By Mouth every 6 hours. Last Dose: Next Dose: Medications to Continue with No Changes Other Medications aspirin (aspirin 81 mg Oral EC Tab) 1 Tablets By Mouth every day. Last Dose: Next Dose: atorvastatin (atorvastatin 40 mg Tab) 1 Tablets By Mouth every day. Last Dose: Next Dose: cholecalciferol (Vitamin D3 1000 intl units (25 mcg) Tab) 1 Tablets By Mouth every day. Last Dose: Next Dose: garlic (Garlic) Last Dose: Next Dose: lisinopril (lisinopril 40 mg Tab) 1 Tablets By Mouth every day. Last Dose: Next Dose: metformin (metformin 1000 mg Tab) 1 Tablets By Mouth 2 times a day. Last Dose: Next Dose: Comment: MEDICATION LIST PROVIDED FOR YOU IS A LIST OF YOUR CURRENT MEDICATIONS. PLEASE CARRY THIS WITH YOU AT ALL TIMES. acetaminophen (acetaminophen 325 mg Tab) 3 Tablets By Mouth every 6 hours. amoxicillin-clavulanate (Augmentin 875 mg oral tablet) 1 Tablets [...] INFORMATION Instructions: Carbohydrate Counting (more content not included)...[facility] HospitalInterdisciplinary Note - Case Manageron [id number] Note - Case ManagerInterdisciplinary Note - Can Tender CRM to room 309 Patient is awake, alert and oriented. Patient is from home with her spouse. Him or family [place] be her ride [place]. Patient verified PCP, DME and insurance. Patient is an observation. She came in from [facility] for Acute Sandra. Patient declined DC needs [...] hospital that she is a possible DC todayNoSt. Charles HospitalComment on above:Result Comment: Electronically Signed By: Neha Keyes\.br\Date and Time Signed: 11/10/24 12:57 EST Interdisciplinary Note - Case ManagerInterdisciplinary Note - Can Tender CRM to room 309 Patient is awake, alert and oriented. Patient is from home with her spouse. Him or family will be her ride at [place]. Patient verified PCP, DME and insurance. Patient is an observation. She came in from [facility] for Acute Sanrda. Patient declined DC needs for DME, HH or Paramed . She declined any concerns to return home. Patient is assigned to Trauma, CRM is awaiting updates. CRM provided contact info, white board updated. CRM following DC date TBDNMercy Health Kings Mills HospitalComment on above:Result Comment: Electronically Signed By: Neha Keyes\.br\Date and Time Signed: 11/10/24 09:41 ESTOperative Reporton [id number] ReportOperative Report [facility] Acute Care Surgery Operative Report Date of Service: 11/09/24 Preop Diagnosis: Acute cholecystitis Postop Diagnosis: Acute gangrenous cholecystitis Procedure: laparoscopic cholecystectomy Surgeon:Domenico Loo MD Distribution Operation Supervisor: Bryant Stone PA-C Anesthesia: General endotracheal EBL: [...] visualization. The patient was placed in reverse Trendelenburgposition with the right side up. The right [...] was then dissected off the liver with elec trocautery the posterior wall of the gallbladder was adherently fused to the liver bed. During the retraction and dissection of the gallbladder multiple holes were made in the gallbladder due to its friable nature and there was bile spillage. The gallbladder fossa was then inspected for hemostasis and achieved through electrocautery the gallbladder was placed in an Endo Catch bag. The gallbladderfossa and right upper quadrant were copiously irrigated with normal saline until the aspirate was clear the clips on the cystic artery and duct were again visualized and found to be in good position there was raw surface oozing coming from the liver edge which was controlled with Brianne powder. A 15 Honduran round CALI drain was inserted through the [...] all parts of the procedure. Domenico Loo MDThe Jewish HospitalComment on above:Result Comment: Electronically Signed By: Santana KING, Domenico X\.br\Date and Time Signed: 11/10/24 17:45 ESTeGFRon [id number] mL/min/1.73 m2Low>=59Grant HospitalComment on above:Performed By: #### [id number] #### [facility] [address], [place] [address]TCN/Rhon 68-26-2132GFW/RhPositiveInvalid Interpretation Code Grant HospitalComment on above:Performed By: #### [id number] #### [facility] [address], [place] [address]YSXPcq 28-40-2532IXVQ Gel InterpNegativeNoOhio State Harding HospitalComment on above:Performed By: #### [id number] #### [facility] [address], [place] [address]SOHPW BANKOrdered By: Vy Chan on 73-35-9513MBC/Rh InterpPositiveInvalid Interpretation CodeSAINT FRANC[facility] BB SubsectionABSC Gel Interp Negative (11/09/24 7:44 AM)NormalSAINT FRANCIS [facility]ITAL [facility] BB SubsectionBMPon [id number] gap [Moles/Vol]12 mmol/LNormal6-16Grant HospitalComment on above:Performed By: #### [id number] #### [facility] [address], [place] [address]Lbjvbdu [Mass/Vol]9.1 mg/dLNormal8.9-11.1FUniversity Hospitals Portage Medical CenterComment on above:Performed By: #### [id number] #### [facility] [address], [place] [address]Ezvjwdpa [Moles/Vol]97 mmol/IEws129-082ByijloGrant HospitalComment on above:Performed By: #### [id number] #### [facility] [address], [place] [address]ZN7 [Moles/Vol]27 mmol/RXewzrt45-21PgcnemGrant Hospital Comment on above:Performed By: #### [id number] #### [facility] [address], [place] [address]Dvdxkuhjva [Mass/Vol]0.8 mg/dLNormal0.5-1.3FUniversity Hospitals Portage Medical CenterComment on above:Performed By: #### [id number] #### [facility] [address], [place] [address]Zvoaoiu [Mass/Vol]222 mg/rJSetc94-965CrqafpGrant HospitalComment on above:Performed By: #### [id number] #### [facility] [address], [place] [address]Tzvcbafro [Moles/Vol]3.8 mmol/LNormal3.5-5.3FUniversity Hospitals Portage Medical CenterComment on above:Performed By: #### [id number] #### [facility] [address], [place] [address]Qjczyg [Moles/Vol]132 mmol/TIlh296-370OfzjblGrant HospitalComment on above:Performed By: #### [id number] #### [facility] [address], [place] [address]Zanf nitrogen [Mass/Vol]21 mg/dLNormal5-21Grant HospitalComment on above:Performed By: #### [id number] #### [facility] [address], [place] [address]Glmt nitrogen/Creatinine [Mass ratio]26 No QcbbxBktr19-79YtyiehGrant HospitalComment on above:Performed By: #### [id number] #### [facility] [address], [place] [address]Dyhoi Bank ID#on [id number]#[id number] Interpretation CodeGrant HospitalComment on above:Performed By: #### [id number] #### [facility] [address] [place] [address]LWD w/ Auto Diffon 23-67-7930Tabd form neutrophils/100 WBC (Bld)1.0 %Normal0.0-6.0Grant HospitalComment on above:Performed By: #### [id number] #### [facility] [address], [place] [address]Ggjixrmiz (Bld) [#/Vol]0.0 E9/LNormal0.0-0.2FUniversity Hospitals Portage Medical CenterComment on above:Performed By: #### [id number] #### [facility] [address] [place] [address]Dauxwnhshxi (Bld) [#/Vol]0.0 E9/LNormal0.0-0.5FUniversity Hospitals Portage Medical CenterComment on above:Performed By: #### [id number] #### [facility] [address], [place] [address]Czmdlyszain/100 WBC (Bld)0.0 %Normal0.0-8.0Grant HospitalComment on above:Performed By: #### [id number] #### [facility] [address] [place] [address]Crgxfxbyfqv (Bld) [#/Vol]1.4 E9/LNormal1.0-4.0Grant HospitalComment on above:Performed By: #### [id number] #### [facility] [address] [place] [address]Gwtekjzspqw/100 WBC (Bld)7.0 %Low14.0-50.0Grant HospitalComment on above:Performed By: #### [id number] #### [facility] [address] [place] [address]Mfizekgvs (Bld) [#/Vol]0.6 E9/LNormal0.2-1.0Grant HospitalComment on above:Performed By: #### [id number] #### [facility] [address] [place] [address]Spkxxcnivya (Bld) [#/Vol]18.1 E9/LInvalid Interpretation Code Grant HospitalComment on above:Performed By: #### [id number] #### [facility] [address] [place] [address]Jgcomimzo neutrophils/100 WBC (Bld)89.0 %High36.0-75.0Grant HospitalComment on above:Performed By: #### [id number] #### [facility] [address] [place] [address]Osujfbgztcl distribution width (RBC) [Ratio]13.6 %Normal 10.9-14.2FUniversity Hospitals Portage Medical CenterComment on above:Performed By: #### [id number] #### [facility] [address] [place] [address]Xrmbgxifco (Bld) [Volume fraction]36.0 %Iolicu59.0-46.0Grant HospitalComment on above:Performed By: #### [id number] #### [facility] [address] [place] [address]Cilmbryrsg (Bld) [Mass/Vol]12.4 g/sABiiggs58.0-16.0Grant HospitalComment on above:Performed By: #### [id number] #### [facility] [address], [place] [address]YWT (RBC) [Entitic mass]30.4 ujFmnxmm81.0-34.0Grant HospitalComment on above:Performed By: #### [id number] #### [facility] [address] [place] [address]BAVY (RBC) [Mass/Vol]34.6 g/vVFgxolb71.4-36.0Grant HospitalComment on above:Performed By: #### [id number] #### [facility] [address] [place] [address]ZFQ (RBC) [Entitic vol]87.9 bCWuyvqr85.0-100.0Grant HospitalComment on above:Performed By: #### [id number] #### [facility] [address] [place] [address]Tcjbrwep789.0 E9/ZJfojoi988.0-500.0[facility] Comment on above:Performed By: #### [id number] #### [facility] [address] [place] [address]Esvrmmcq mean volume (Bld) [Entitic vol]8.8 fLNormal6.4-10.8 Grant HospitalComment on above:Performed By: #### [id number] #### [facility] [address] [place] [address]VHM (Bld) [#/Vol]4.1 E12/LLow4.3-5.9[facility] Comment on above:Performed By: #### [id number] #### [facility] [address] [place] [address]PWE corrected for nucl RBC Auto (Bld) [#/Vol]20.1 E9/LHigh 4.0-11.0Grant HospitalComment on above:Performed By: #### [id number] #### [facility] [address] [place] [address]SOWPDVPISJesvids By: Lab ROPUser on 77-22-9390Vueovih [Mass/Vol]266 mg/eOJujd97 - 99 mg/dLSAINT FRANCIS [facility] POC SubsectionComment on above:Result Comment: Notified RN/RICHARD UsernameRONCAL, AUGUSTOInvalid Interpretation Code [facility] POC SubsectionSodium [Moles/Vol]593581020841 mmol/LInvalid Interpretation CodeSAINT FRANCIS [facility]OS[facility]ITAL [facility] POC SubsectionSodium [Moles/Vol]853000520 mmol/LInvalid Interpretation CodeSAINT FRANCIS [facility]OS[facility]ITAL [facility] POC SubsectionCHEMISTRYOrdered By: SYSTEM SYSTEM on 17-43-0556Qcfpjjk [Mass/Vol]3.7 g/dLNormal3.3 - 5.0 gm/dLRemisol ChemAlbumin/Globulin [Mass ratio] 1.2 {ratio}Normal1.1 - 2.2Remisol ChemALP [Catalytic activity/Vol]63 [iU]/d Birknd35 - 98 Int._Unit/LRemisol ChemALT No additional P-5'-P [Catalytic activity/Vol]44 [iU]/dNormal6 - 46 Int._Unit/LRemisol ChemAnion gap [Moles/Vol] 12 mmol/LNormal6 - 16 mEq/LRemisol ChemAST [Catalytic activity/Vol]45 [iU]/dHigh 5 - 43 Int._Unit/LRemisol ChemBilirubin [Mass/Vol]2.0 mg/dLHigh0.0 - 1.1 mg/dL Remisol ChemBilirubin.direct [Mass/Vol]0.7 mg/dLHigh0.0 - 0.4 mg/dLRemisol Chem Bilirubin.indirect [Mass or moles/Vol]1.3 mg/dLHigh0.1 - 0.9 mg/dLRemisol Chem Calcium [Mass/Vol]9.1 mg/dLNormal8.9 - 11.1 mg/dLRemisol ChemChloride [Moles/Vol]97 mmol/FHzk922 - 111 mmol/LRemisol ChemCO2 [Moles/Vol]27 mmol/L Rbguvh55 - 31 mmol/LRemisol ChemCreatinine [Mass/Vol]0.8 mg/dLNormal0.5 - 1.3 mg/dLRemisol UdjmnMHI84 mL/min/1.73 w4Komjrs>=59mL/min/1.73 u4Tszuhpz Chem Globulin (S) [Mass/Vol]3.0 g/dLNormal1.4 - 4.0 gm/dLRemisol ChemGlucose [Mass/Vol]222 mg/eYNjbg55 - 199 mg/dLRemisol ChemPotassium [Moles/Vol]3.8 mmol/L Normal3.5 - 5.3 mmol/LRemisol ChemProtein [Mass/Vol]6.7 g/dLNormal6.0 - 7.8 gm/dLRemisol ChemSodium [Moles/Vol]132 mmol/OQnn420 - 145 mmol/LRemisol ChemUrea nitrogen [Mass/Vol]21 mg/dLNormal5 - 21 mg/dLRemisol ChemUrea nitrogen/Creatinine [Mass ratio]26 mg/xjJgyt90 - 20Remisol ChemCapillary Glucose POCon 93-42-5685Sewmztz [Mass/Vol]266 mg/wRVqsr75-58CdvcrsGrant Hospital Comment on above:Result Comment: Notified RN/MDPerformed By: #### [id number] #### [facility] [address] [place], [place] [address]Htroxho [Mass/Vol]272 mg/dIRjnq93-28VnjxnbGrant Hospital Comment on above:Result Comment: Notified RN/MDPerformed By: #### [id number] #### [facility] [address], [place] [address]Eszwwcz [Mass/Vol]215 mg/ySOvgs76-36LadtpbGrant Hospital Comment on above:Result Comment: Notified RN/MDPerformed By: #### [id number] #### [facility] [address], [place] [address]Amggvin [Mass/Vol]216 mg/sCCbpn82-53FcmkuoGrant Hospital Comment on above:Result Comment: Notified RN/MDPerformed By: #### [id number] #### [facility] [address] [place], [place] [address]Argul Blueon 30-26-1662Asss Collected PlasmaYesInvalid Interpretation CodeFisher University Of Maryland Medical CenterComment on above:Performed By: #### [id number] #### [facility] [address] [place], [place] [address]ATXGCKUCEDFlzwntn By: SYSTEM SYSTEM on 24-10-7497Ghtw form neutrophils/100 WBC (Bld)1.0 %Normal0.0 - 6.0 %Remisol HemeBasophils (Bld) [#/Vol]0.0 E9/LNormal0.0 - 0.2 E9/LRemisol HemeBasophils/100 WBC (Bld)0.0 % Normal0.0 - 2.0 %Remisol HemeEosinophils (Bld) [#/Vol]0.0 E9/LNormal0.0 - 0.5 E9/LRemisol HemeEosinophils/100 WBC (Bld)0.0 %Normal0.0 - 8.0 %Remisol Heme Erythrocyte distribution width (RBC) [Ratio]13.6 %Kkzzfs05.9 - 14.2 %Remisol HemeHematocrit (Bld) [Volume fraction]36.0 %Yyqhhh80.0 - 46.0 %Remisol Heme Hemoglobin (Bld) [Mass/Vol]12.4 g/oNKyejlu24.0 - 16.0 gm/dLRemisol Heme Lymphocytes (Bld) [#/Vol]1.4 E9/LNormal1.0 - 4.0 E9/LRemisol HemeLymphocytes/100 WBC (Bld)7.0 %Low14.0 - 50.0 %Remisol HemeMCH (RBC) [Entitic mass]30.4 pgNormal 27.0 - 34.0 pgRemisol HemeMCHC (RBC) [Mass/Vol]34.6 g/uVTjfnvx44.4 - 36.0 gm/dL Remisol HemeMCV (RBC) [Entitic vol]87.9 nHVnyibj31.0 - 100.0 fLRemisol Heme Monocytes (Bld) [#/Vol]0.6 E9/LNormal0.2 - 1.0 E9/LRemisol HemeMonocytes/100 WBC (Bld)3.0 %Low4.0 - 14.0 %Remisol HemeNeutrophils (Bld) [#/Vol]18.1 E9/LInvalid Interpretation CodeRemisol QaonWglbaxbu563.0 E9/WQmpbif583.0 - 500.0 E9/LRemisol HemePlatelet mean volume (Bld) [Entitic vol]8.8 fLNormal6.4 - 10.8 fLRemisol HemeRBC (Bld) [#/Vol]4.1 E12/LLow4.3 - 5.9 E12/LRemisol HemeSegmented neutrophils/100 WBC (Bld)89.0 %High36.0 - 75.0 %Remisol HemeWBC corrected for nucl RBC Auto (Bld) [#/Vol]20.1 E9/LHigh4.0 - 11.0 E9/LRemisol HemeHep Func Panelon [id number] [Mass/Vol]3.7 g/dLNormal3.3-5.0Grant HospitalComment on above:Performed By: #### [id number] #### [facility] [address], [place] [address]Hlmanqr/Globulin (S) [Mass conc ratio]1.1Toiesp9.1-2.2FUniversity Hospitals Portage Medical CenterComment on above:Performed By: #### [id number] #### [facility] [address], [place] [address]SBL [Catalytic activity/Vol]63 Int._Unit/BDtrumm96-51ReofuiGrant HospitalComment on above:Performed By: #### [id number] #### [facility] [address], [place] [address]WPX No additional P-5'-P [Catalytic activity/Vol]44 Int._Unit/L Normal6-46Grant HospitalComment on above:Performed By: #### [id number] #### [facility] [address], [place] [address]IPA [Catalytic activity/Vol]45 Int._Unit/LHigh5-43Grant HospitalComment on above:Performed By: #### [id number] #### [facility] [address], [place] [address]Txvtkawyd [Mass/Vol]2.0 mg/dLHigh0.0-1.1FUniversity Hospitals Portage Medical CenterComment on above:Performed By: #### [id number] #### [facility] [address], [place] [address]Buzocyzop.direct [Mass/Vol]0.7 mg/dLHigh0.0-0.4FUniversity Hospitals Portage Medical CenterComment on above:Performed By: #### [id number] #### [facility] [address], [place] [address]Leropfaok.indirect [Mass or moles/Vol]1.3 mg/dLHigh0.1-0.9 Grant HospitalComment on above:Performed By: #### [id number] #### [facility] [address] [place] [address]Gsoypeyx (S) [Mass/Vol]3.0 g/dLNormal1.4-4.0Grant HospitalComment on above:Performed By: #### [id number] #### [facility] [address] [place] [address]Mwbeaov [Mass/Vol]6.7 g/dLNormal6.0-7.8Grant HospitalComment on above:Performed By: #### [id number] #### [facility] [address] [place] [address]Grvrvwiuiarflivom Note - Case Manageron 11-09-2024 Interdisciplinary Note - Case ManagerInterdisciplinary Note - Can Tender CRM to room 309 Patient is getting ready to be taken to the OR CRM will come back later this date if able or on 11/10 Patient was a direct admit from [facility]. Patient is going to OR today with Dr Loo Patient DC dates and plans TBD. CRM contact info to white nathan. CRM following Patient is still not back from OR CRM will have to see on 11/10NoOhio State Harding HospitalComment on above: Result Comment: Electronically Signed By: Neha Keyes\.br\Date and Time Signed: 11/09/24 15:27 ESTInterdisciplinary Note - Case ManagerInterdisciplinary Note - Can Tender CRM to room 309 Patient is getting ready to be taken to the OR CRM will come back later this date if able or on 11/10 Patient was a direct admit from [facility]. Patient is going to OR today with Dr Loo Patient DC dates and plans TBD. CRM contact info to michael evans. CRM [facility] CenterComment on above:Result Comment: Electronically Signed By: Neha Keyes\.br\Date and Time Signed: 11/09/24 11:47 ESTMain OR Intraoperative Recordon [id number] OR Intraoperative Record Main OR Intraoperative Record IntraOp Document Type FT Summary Primary Physician: Domenico Loo MD Finalized Date/Time: 11/09/24 16:18:01 Pt. Name: CIERA HAYES./Sex: 1955 Female Med Rec #: [id number] Physician: Domenico Loo MD Financial #: [id number] Pt. Type: O Room/Bed: [place] [address] Admit/Disch: 11/09/24 03:12:02 - Institution: Case Times FT Entry 1 Patient Times In Room 11/09/24 13:03:00 Out Room 11/09/24 16:17:00 Procedure Times Start 11/09/24 13:24:00 Stop 11/09/24 16:06:00 Anesthesia Times Start 11/09/24 13:03:00 Stop 11/09/24 16:17:00 Last Modified By: Manuel SALCIDO, Arianna Gutiérrez 11/09/24 16:16:57 Case Attendance FT Entry 1 Entry 2 Entry 3 Case Attendee Domenico Loo MD [facility], Jose Jackson RN, Arianna Gutiérrez Role Performed Surgeon - Primary Anesthesiologist Wreath Machine Tender - Primary Distribution Operation Supervisor Time In 11/09/24 13:14:00 11/09/24 13:03:00 11/09/24 13:03:00 Time Out 11/09/24 16:17:00 11/09/24 16:17:00 11/09/24 16:17:00 Procedure CHOLECYSTECTOMY CHOLECYSTECTOMY CHOLECYSTECTOMY LAPAROSCOPIC W/ LAPAROSCOPIC W/ LAPAROSCOPIC W/ CHOLANGI(.) CHOLANGI(.) CHOLANGI(.) Comments dr. kumar supervising out for break at [phone] Last Modified By: Manuel RN, Arianna Jackson RN, Arianna Jackson RN, Arianna Chaudhry P 11/09/24 Richa P 11/09/24 Richa P 11/09/24 16:16:58 16:16:58 16:16:58 Entry 4 Entry 5 Entry 6 Case Attendee Ruby Lynne DINKEY OPERATOR, Christine Demarco RN, Victorina Boogie Role Performed Scrub - Primary DINKEY OPERATOR/SA Staff - Other Time In 11/09/24 13:03:00 [...] Chase PENN, Jean Carlos Rojas Role Performed PA/HOMICIDE SQU[employer] COMMANDING OFFICER Wreath Machine Tender - Relief Time In 11/09/24 13:14:00 11/09/24 [...] Antibiotic Yes Time Out Domenico Loo MD, Joy Given Participants Jose FERRIS, Manuel SALCIDO, Maged [...] Skin Assessment (Pre Procedure (more content not included)...[facility] Recordon [id number] OR PACU I RecordMain OR PACU I Record PACU Phase I Document Type FT Summary Primary Physician: Domenico Loo MD Finalized Date/Time: 11/09/24 17:40:25 Pt. Name: CIERA HAYES /Sex: 1955 Female Med Rec #: [id number] Physician: Domenico Loo MD Financial #: [id number] Pt. Type: O Room/Bed: [place] [address] Admit/Disch: 11/09/24 03:12:02 - Institution: Case Times [...] individualized perioperative plan of care The patient's rightto privacy is maintained The patient's value system, [...] with or improved from baseline levels established preoperativelyThe patient's cardiovascular status is consistent with or improved from baseline levels established preoperatively The patient's cardiovascular status is consistent with or improved from baseline levels established preoperatively The patient demonstrates and/or reports adequate pain control throughout the perioperative period The patient received appropriate medication(s), safely administered during the perioperativeperiod Acuity Level PACU I FT Entry 1 Start Time 11/09/24 16:19:00 Stop Time 11/09/24 16:49:00 Acuity Level Acuity Level I Last Modified By: Sun Michael RN 11/09/24 17:40:21 Finalized By: Sun Michael RN Document Signatures Signed By: Sun Michael RN 11/09/24 17:40NoOhio State Harding HospitalMain OR Preoperative Recordon [id number] OR Preoperative RecordMain OR Preoperative Record PreOp Document Type FT Summary Primary Physician: Domenico Loo MD Finalized Date/Time: 11/09/24 14:07:41 Pt. Name: CIERA HAYES Perfecto Rincon/Sex: 1955 Female Med Rec #: [id number] Physician: Domenico Loo MD Financial #: [id number] Pt. Type: O Room/Bed: [place] [address] Admit/Disch: 11/09/24 03:12:02 - Institution: Case Times [...] Signatures Signed By: Arianna Jackson RN 11/09/24 14:07NoOhio State Harding HospitalUS Gallbladderon [id number] GallbladderExam Date/Time: 11/09/2024 09:43 EST Reason for Exam: [...] Guillermo Adkins MD Transcribed by: TRINITY Technologist: [facility] SystemeGFRon [id number] mL/min/1.73 g9Zwtrod>=59Grant HospitalComment on above:Performed By: #### [id number] #### [facility] [address], [place] [address]HM MAMM SCREEN 3D AMNA CADon [id number] MAMM SCREEN 3D AMNA CAD Patient: CIERA HAYES Exam Date: 12/30/2022 : 1955 Gender:F Ordering : [facility] Admission #: [id number] Family : Order #: [id number] CLICK HERE TO VIEW EXAM RADIOLOGY REPORT [...] cervical cancer at age 61. LOCATION: [facility] BREAST COMPOSITION: Scattered areas fibroglandular density. FINDINGS: [...] LUMP SHOULD BE BIOPSIED. Dictated by: Trace Aguirre MD on 12/31/2022 at 06:51 Approved by: Trace Aguirre MD on 12/31/2022 at 06:55NoUniversity Hospitals Beachwood Medical Center AUTO DIFFon [id number] #0.1 103/ulNormal0.0-0.1The [facility] HospitalComment on above:Performed By: #### CBC #### [facility] [address] [place] [address] Dr. Melania RodriguezBasophils/100 WBC (Bld)0.6 %Normal0.2-2.0[facility] Comment on above:Performed By: #### CBC #### [facility] [address] [place] [address] Dr. Melania Alvarez #0.3 103/ulNormal0.0-0.7The [facility] HospitalComment on above: Performed By: #### CBC #### [facility] [address] [place] [address] Dr. Melania Beckmanosinophils/100 WBC (Bld)3.9 %Normal0.9-7.0[facility] Comment on above:Performed By: #### CBC #### [facility] [address] [place] [address] Dr. Melania Beckmanrythrocyte distribution width (RBC) [Ratio]13.4 %Fvxqft16.0-15.0 The [facility] HospitalComment on above:Performed By: #### CBC #### [facility] [address] [place] [address] Dr. Melania RodriguezHematocrit (Bld) [Volume fraction]42.5 %Yjdios69.0-48.0The [facility] HospitalComment on above:Performed By: #### CBC #### [facility] [address] [place] [address] [address] Melania RodriguezHemoglobin (Bld) [Mass/Vol]13.8 g/pRMmvplp29.0-16.0The [facility] HospitalComment on above:Performed By: #### CBC #### [facility] [address] [place] [address] Dr. Melania Daly #0.03 10e3/ulNormal0.00-0.03The [facility] HospitalComment on above:Performed By: #### CBC #### [facility] [address] [place] [address] Dr. Melania Daly %0.4 %Normal0.0-0.5The [facility] HospitalComment on above: Performed By: #### CBC #### [facility] [address] [place] [address] Dr. Melania Weeks #3.0 103/ulNormal1.2-3.8The [facility] HospitalComment on above:Performed By: #### CBC #### [facility] [address] [place] [address] Dr. Melania Beehocytes/100 WBC (Bld)35.1 %Tdmyuc99.5-60.0The [facility] HospitalComment on above:Performed By: #### CBC #### [facility] [address] [place] [address] Dr. Melania DwyerUAL DIFF REQNONormalThe [facility] HospitalComment on above: Performed By: #### CBC #### [facility] [address] [place] [address] Dr. Melania Singh (RBC) [Entitic mass]29.5 uoVwicch26.7-34.0The [facility] HospitalComment on above:Performed By: #### CBC #### [facility] [address] [place] [address] Dr. Melania Singh (RBC) [Mass/Vol]32.5 g/aEOciuul60.9-35.2The [facility] HospitalComment on above:Performed By: #### CBC #### [facility] [address] [address] [address] Melania SinghV (RBC) [Entitic vol]90.8 yLCzksey15.0-99.0The [facility] HospitalComment on above:Performed By: #### CBC #### [facility] [address] [address] [address] Melania Abdalla #0.4 103/ulNormal0.3-0.8The [facility] HospitalComment on above:Performed By: #### CBC #### [facility] [address] [place] [address] Dr. Melania Cartyocytes/100 WBC (Bld)5.1 %Normal1.7-12.0The [facility] on above:Performed By: #### CBC #### [facility] [address] [place] [address] Dr. Melania Puente #4.7 103/ulNormal1.4-6.5The [facility] Beachwood Medical Centerment on above:Performed By: #### CBC #### [facility] [address] [place] [address] Dr. Melania Tonyutrophils/100 WBC (Bld)54.9 %Hgbtme88.0-75.0The [facility] on above:Performed By: #### CBC #### [facility] [address] [place] [address] Dr. Melania Tomaslet mean volume (Bld) [Entitic vol]10.9 fLNormal9.5-13.5The [facility] Beachwood Medical Centerment on above:Performed By: #### CBC #### [facility] [address] [place] [address] Dr. Melania RodriguezPLT196 103/bcGxhamk379-230Xlb [facility]wood Medical Centerment on above: Performed By: #### CBC #### [facility] [address] [place] [address] Dr. Melania RodriguezRBC4.68 106/ulNormal4.20-5.40The [facility] HospitalComment on above:Performed By: #### CBC #### [facility] [address] [address] [address] Melania RodriguezWBC8.6 103/ulNormal4.0-11.0The [facility] HospitalComment on above: Performed By: #### CBC #### [facility] [address] [address] [address] Melania Mario THYROXINE INDEX T7on 60-03-3914HKH9.41Mjrrbv8.30-4.50The [facility] HospitalComharper university hospital on above:Performed By: #### CMP, T7, TSH, LIPID #### [facility] [address] [place] [address] Dr. Melania RodriguezT3U34.0 %Ecsaar69.0-39.0The [facility] Beachwood Medical Centerment on above: Performed By: #### CMP, T7, TSH, LIPID #### [facility] [address] [place] [address] Dr. Melania RodriguezT4 [Mass/Vol]7.60 ug/dLNormal4.80-13.90The [facility] Comment on above:Performed By: #### CMP, T7, TSH, LIPID #### [facility] [address] [place] [address] Dr. Melania RodriguezGLYCOHEMOGLOBIN A1Con [id number] RECOMMENDATIONSEE BELOWNormal The [facility] HospitalComharper university hospital on above:Result Comment: ADA RECOMMENDED LIMIT 4.0 - 6.0 ADA THERAPEUTIC TARGET < 7.0 ACTION SUGGESTED > 7.0Performed By: #### A1C #### [facility] [address] [place] [address] Dr. Melania RodriguezGlucose [Mass/Vol]146 mg/dLNormalThe [facility] HospitalComment on above:Performed By: #### A1C #### [facility] [address] [place] [address] Dr. Melania RodriguezHbA1c (Bld) [Mass fraction]6.7 %Critically high4.5-6.2The [facility] HospitalComment on above:Performed By: #### A1C #### [facility] [address] [address] [address] Melania MariaID PROFILEon 82-66-1801IEDP-HDL RATIO NORMSCleveland Clinic Union HospitalComharper university hospital on above:Result Comment: 3.3 - 4.4 LOW RISK 4.4 - 7.1 AVERAGE RISK 7.1 - 11.0 MODERATE RISK >11.0 HIGH RISKPerformed By: #### CMP, T7, TSH, LIPID #### [facility] [address] [address] [address] Melania RodriguezCholesterol [Mass/Vol]140 mg/dLNormal<=200[facility] Comment on above:Performed By: #### CMP, T7, TSH, LIPID #### [facility] [address] [address] [address] Melania Meadesterol in HDL [Mass/Vol]40 mg/wAJwzqqg17-96QmjSt. Mary'S Medical CenterComment on above:Performed By: #### CMP, T7, TSH, LIPID #### [facility] [address] [place] [address] Dr. Melania RodriguezCholesterol in LDL [Mass/Vol]57.2 mg/dLMary Rutan HospitalComharper university hospital on above:Performed By: #### CMP, T7, TSH, LIPID #### [facility] [address] [address] [address] Melania Meadestershar.total/Cholesterol in HDL [Mass ratio]3.5 {ratio} NormalSt. Mary'S Medical CenterComment on above:Performed By: #### CMP, T7, TSH, LIPID #### [facility] [address] [place] [address] Dr. Melania RodriguezHDRobyn NORMAL> or = 60 mg/dl - LOW CARDIOVASCULAR RISK <40 mg/dl - HIGH CARDIOVASCULAR RISKMary Rutan HospitalComharper university hospital on above:Performed By: #### CMP, T7, TSH, LIPID #### [facility] [address] [place] [address] Dr. Melania RodriguezLDL CALC NORMALSEE [facility]Medica Memorial HospitalComment on above:Result Comment: <100 mg/dl OPTIMAL 100 - 129 mg/dl NEAR OR ABOVE OPTIMAL 130 - 159 mg/dl BORDERLINE HIGH 160 - 189 mg/dl HIGH >190 mg/dl VERY HIGH Performed By: #### CMP, T7, TSH, LIPID #### [facility] [address] [place] [address] Dr. Melania RodriguezTriglyceride [Mass/Vol]214 mg/dLCritically high<=150The [facility] on above:Performed By: #### CMP, T7, TSH, LIPID #### [facility] [address] [place] [address] Dr. Melania RodriguezVLDL CALC42.8 mg/dLNormalThe [facility] HospitalComment on above: Performed By: #### CMP, T7, TSH, LIPID #### [facility] [address] [place] [address] Dr. Melania De La Rosa 14(COMP METB)on 70-48-5246Xvatnai [Mass/Vol]3.8 g/dLNormal 3.4-5.0The [facility] on above:Performed By: #### CMP, T7, TSH, LIPID #### [facility] [address] [place] [address] Dr. Melania RodriguezAlbumin/Globulin [Mass ratio]1.2 {ratio}NormalThe [facility] on above:Performed By: #### CMP, T7, TSH, LIPID #### [facility] [address] [place] [address] Dr. Melania Coyle [Catalytic activity/Vol]73 U/QMbszjo59-032Tqx [facility] on above:Performed By: #### CMP, T7, TSH, LIPID #### [facility] [address] [address] [address] Melania Niño [Catalytic activity/Vol]37 U/SUkeegs94-12Int [facility] on above:Performed By: #### CMP, T7, TSH, LIPID #### [facility] [address] [place] [address] Dr. Melania Sadny gap [Moles/Vol]12.8 mmol/LNormalThe [facility] Comment on above:Performed By: #### CMP, T7, TSH, LIPID #### [facility] [address] [address] [address] Melania RodriguezAST [Catalytic activity/Vol]25 U/GCferyb09-92Kcf [facility] HospitalComment on above:Performed By: #### CMP, T7, TSH, LIPID #### [facility] [address] [address] [address] Melania RodriguezBilirubin [Mass/Vol]0.7 mg/dLNormal0.2-1.0The [facility] Comment on above:Performed By: #### CMP, T7, TSH, LIPID #### [facility] [address] [place] [address] Dr. Melania RodriguezCalcium [Mass/Vol]9.6 mg/dLNormal8.5-10.1[facility] Comment on above:Performed By: #### CMP, T7, TSH, LIPID #### [facility] [address] [address] [address] Melania RodriguezChloride [Moles/Vol]103 mmol/GHuytzh17-183YwwSt. Mary'S Medical Center Comment on above:Performed By: #### CMP, T7, TSH, LIPID #### [facility] [address] [place] [address] Dr. Melania RodriguezCO2 [Moles/Vol]29.4 mmol/SBpciig82.0-32.0[facility] Comment on above:Performed By: #### CMP, T7, TSH, LIPID #### [facility] [address] [place] [address] Dr. Melania RodriguezCreatinine [Mass/Vol]0.59 mg/dLNormal0.55-1.02St. [facility]S Medical CenterComment on above:Performed By: #### CMP, T7, TSH, LIPID #### [facility] [address] [place] [address] Dr. Velázquez ChangEGFR-AF EAST TIMORESE>60Normal>=60The [facility] HospitalComment on above:Performed By: #### CMP, T7, TSH, LIPID #### [facility] [address] [address] [address] Melania BeckmanGFR-NON AF EAST TIMORESE>60Normal>=60The [facility] HospitalComment on above:Performed By: #### CMP, T7, TSH, LIPID #### [facility] [address] [address] [address] Melania RodriguezGlobulin (S) [Mass/Vol]3.1 g/dLNormalThe [facility] HospitalComment on above:Performed By: #### CMP, T7, TSH, LIPID #### [facility] [address] [address] [address] Melania RodriguezGlucose [Mass/Vol]106 mg/aPPvfnfd98-634Rad [facility] Comment on above:Performed By: #### CMP, T7, TSH, LIPID #### [facility] [address] [address] [address] Melania RodriguezPotassium [Moles/Vol]4.2 mmol/LNormal3.5-5.1The [facility] Comment on above:Performed By: #### CMP, T7, TSH, LIPID #### [facility] [address] [address] [address] Melania RodriguezProtein [Mass/Vol]6.9 g/dLNormal6.4-8.2[facility] Comment on above:Performed By: #### CMP, T7, TSH, LIPID #### [facility] [address] [address] [address] Melania RodriguezSodium [Moles/Vol]141 mmol/GYayyzc038-944Vzk [facility] Comment on above:Performed By: #### CMP, T7, TSH, LIPID #### [facility] [address] [address] [address] Melania RodriguezUrea nitrogen [Mass/Vol]17.0 mg/dLNormal7.0-18.0The [facility] HospitalComment on above:Performed By: #### CMP, T7, TSH, LIPID #### [facility] [address] [address] [address] Melania RodriguezUrea nitrogen/Creatinine [Mass ratio]28.8 mg/mgNormalThOhioHealth Grady Memorial HospitalComment on above:Performed By: #### CMP, T7, TSH, LIPID #### [facility] [address] [place], [place] [address] Dr. Melania Flowers 79-06-8008YEG4.301 uIU/mLNormal0.358-3.740St. [facility]S Medical CenterComment on above:Performed By: #### CMP, T7, TSH, LIPID #### [facility] [address] [place], [place] [address] Dr. Melania Rodriguez Vital Signs Date TimeVital SignValuePerforming CfszvwwqaXzfjtcut35-48-3370 09:53-0500 Diastolic blood xoorteyy12 mm[Hg]Tulio London [address]01-29-2025 09:53-0500Heart rate61 /minTulio London [address]01-29-2025 09:53-0500 Systolic blood wuoobowy421 mm[Hg]Tulio London [address] [place], [place] 4073701-23-2025 15:00-0500 Hourly RoundingGary Loo [address] [place], [place] 4073701-23-2025 15:00-0500 Promise to ReturnGary Loo [address] [place], [place] 4073701-23-2025 14:00-0500 Hourly RoundingGary Loo [address] [place], [place] 4073701-23-2025 14:00-0500 Promise to ReturnGary Loo [address] [place], [place] 4073701-23-2025 13:00-0500 Hourly RoundingGary Loo [address]01-23-2025 13:00-0500 Promise to ReturnGary Loo [address] [place], [place] 4073701-23-2025 11:07-0500Heart rate76 /minJuliusy Loo [address] [place], [place] 6788201-23-2025 11:07-2782VoJ4% (BldA) [Mass fraction]98 %Domenico Mccurdyin [address] [place], [place] 6788201-23-2025 11:03-0500Body mifiqgwnexd38.88 [degF]Domenico Loo [address] [place], [place] 6788201-23-2025 11:03-0500 Diastolic blood xcshemdz99 mm[Hg]Domenico Loo [address] [place], [place] 6788201-23-2025 11:03-0500Mean blood elppuflg15 mm[Hg]Domenico Loo [address] [place], [place] 6788201-23-2025 11:03-0500 Systolic blood nwyphgbj272 mm[Hg]Domenico Loo [address] [place], [place] 6788201-23-2025 08:05-0500 Diastolic blood prxycbhc56 mm[Hg]Domenico Loo [address] [place], [place] 6788201-23-2025 08:05-0500 Systolic blood rrxuwjvu19 mm[Hg]Domenico Loo [address] [place], [place] 6788201-23-2025 07:53-0500Heart rate70 /minDomenico Loo [address] [place], [place] 6788201-23-2025 07:53-3795LsP0% (BldA) [Mass fraction]99 %Domenico Loo [address] [place], [place] 6788201-23-2025 07:52-0500Body nbxcfrixnxi46.7 [degF]Domenico Loo [address] [place], [place] 6788201-23-2025 07:52-0500 Diastolic blood wlrrpvzy56 mm[Hg]Domenico Loo [address] [place], [place] 6788201-23-2025 07:52-0500Mean blood kokpzrsb16 mm[Hg]Domenico Loo [address] [place], [place] 6788201-23-2025 07:52-0500 Systolic blood fiezmzfd69 mm[Hg]Domenico Loo [address] [place], [place] 6788201-23-2025 04:07-0500Body epgrngdkbrz24.52 [degF]Domenico Mccurdyin [address] [place], [place] 6788201-23-2025 04:07-0500Heart rate68 /minDomenico Loo [address] [place], [place] 6788201-23-2025 04:07-0500Mean blood mm[Hg]Domenico Mccurdyin [address] [place], [place] 6788201-23-2025 04:07-0500 Respiratory rate18 /minJuliusy Loo [address] [place], [place] 6788201-23-2025 04:07-3585RrR9% (BldA) [Mass fraction]99 %Domenico Mccurdyin [address] [place], [place] 6788201-23-2025 01:07-0500Body oxkprjpuwkt00.16 [degF]Domenico Mccurdyin [address] [place], [place] 6788201-23-2025 01:07-0500Mean blood dvoeijjh02 mm[Hg]Domenico Mccurdyin [address] [place] [id number] 01:07-0500 Respiratory rate18 /minGary Loo [address] [place], [place] [id number] 20:22-0500 Respiratory rate16 /minGary Loo [address] [place], [place] [id number] 20:22-0500Body woidmhrqbqr76.06 [degF]Domenico Mccurdyin [address] [place], [place] 6788201-22-2025 20:21-0500Mean blood tetrmdlz38 mm[Hg]Domenico Loo [address] [place], [place] 6788201-22-2025 17:00-0500Body qidyddaaxub15.7 [degF]Domenico Loo [address] [place], [place] 6788201-22-2025 17:00-0500Mean blood waffvvqc23 mm[Hg]Domenico Loo [address] [place], [place] 6788201-22-2025 16:55-0500Blood Pressure LocationGary Loo [address] [place], [place] 6788201-22-2025 16:55-0500Body oerovrsympl73.52 [degF]Domenico Mccurdyin [address] [place], [place] 6788201-22-2025 16:55-0500 Respiratory rate19 /minDomenico Loo [address] [place], [place] 6788201-22-2025 16:45-0500 Respiratory rate19 /minJuliusy Loo [address] [place], [place] 6788201-22-2025 16:40-0500 Respiratory rate21 /minDomenico Loo [address] [place], [place] 6788201-22-2025 16:19-0500Body npqlswtjeer10.8 [degF]Domenico Mccurdyin [address] [place], [place] 6788201-22-2025 16:15-9321GIS4 100 1Gary Loo [address] [place], [place] 6788201-22-2025 16:10-7482SFJ5 100 1Gary Loo [address] [place], [place] 6788201-22-2025 16:05-3058RYK3 60 1Gary Loo [address] [place], [place] 6788201-22-2025 03:00-0500Heart rate93 /minDomenico Mccurdyin [address] [place] [address] Encounters Encounter DateEncounter TypeCare ProviderFacilityStart: 11-16-2024 End: 92-33-0546ggddudpqywZtfxhy M. SzynkowskiFacility:FTMCStart: 11-16-2024 End: 75-06-3177Rrpvfcj encounter procedureTulio London [facility] Start: 11-11-2024 End: 47-83-4808Resfwamvc department patient visitJohn ParenteFacility:FTMCStart: 11-09-2024 End: 84-48-6170wedbzrtgzvXumt X JainFacility:FTMCStart: 11-09-2024 End: 51-55-1290RpewgklxiczIgwp X Loo [facility] Start: 12-30-2022 End: 59-98-4654qktyviucsySXKNOK CRAMERFacility:Z2Zwqae: 12-29-2022 End: 99-00-5691bimanhcbdnMYUQPH CRAMERFacility:H1 Procedures DateProcedureProcedure DetailPerforming ClinicianStart: 11-09-2024 CholecystectomyBear [place] Immunizations Immunization DateImmunizationNotesCare WvrqxajuVnzuuebh16-71-6817nytfgeqsw virus vaccine, unspecified formulationTulio London [facility]09-29-2023zoster vaccine recombinantTulio London [facility]06-29-2023zoster vaccine recombinantTulio London [facility]11-03-2022SARS-CoV-2 (COVID-19) mRNAMUL.ORD!l15923WhxnrhTulio London [facility] SystemComment on above:Result Comment: 2024-11-16: [id number]-IlY-2 (COVID-19) mRNA-1273 vaccine Tulio Heardluis enrique [facility] SystemComment on above:Result Comment: 2024-11-16: [id number]-EzV-5 (COVID-19) mRNA-1273 vaccine Tulio Lita [facility] SystemComment on above:Result Comment: 2024-11-16: [id number]-TxQ-1 (COVID-19) mRNA-1273 vaccine Tulio Linfidel [facility] SystemComment on above:Result Comment: 2024-11-16: [id number] virus vaccine, unspecified formulationGaudencioortega Lita [facility]06-01-2010pneumococcal polysaccharide vaccine, 23 valentGaudencioortega Lita [facility] Payers DatePayer CategoryPayerPolicy [id number] Health [id number] 2..1.935600.3.5[id number] 2.0.1.619874.3.57[id number] 2.0.1.137807.3.57[id number] 2.840.1.880900.3.57[id number] 2.840.1.340948.3.579.[id number] 2.16.840.1.532988.3.57[id number] 2.16.840.1.952918.3.57[id number] 2.16.840.1.559849.3.57[id number] 2.16.840.1.413199.3.579.[id number] 2.16.840.1.441131.3.57[id number] 2.16.840.1.213982.3.579.2.727 Social History DateTypeDetailFaclarinda regional health centerTobacco smoking statusNo Smoking Status EnteredThe [facility] System sex Assigned At BirthFeSheltering Arms Hospitaltart: 72-85-4884Mijvqok smoking statusNever smoked tobacco (finding) [facility]health SystemTobacc smoking statusNeSamaritan Hospital Functional Status NgbbUphvoishqbPnviypCynzzjvc62-91-2171Xuglayeroc StatusN/[facility] History and physical note 11-11-2024 Note Date & NvebBkuxQgvnimud29-08-8250 NoteHistory and Physical ACUTE CARE SURGERY CONSULT / H&P Patient Name: CIERA HAYES Admission Date: 11/09/2024 [...] on the right side of the abdomen. doesnot radiate. Has not eaten much in those 4 days due to pain. Denies fevers or chills. CT abd/pelvisat OSH consistent with acute cholecystitis. Past surgical [...] no? food allergies, no? recurrent infections, no? impairedimmunity PHYSICAL EXAM Constitutional: Sitting up in bed, no acute distress. Not ill appearing HEENT: Atraumatic, normocephalic Cardiovascular: RRR Pulmonary/Chest: Breathing comfortably on RA Abdominal: Soft. Non-distended. Pain with palpation in the RUQ and RLQ Musculoskeletal: Moves all extremities spontaneously. Neurological: A&O x 3 Skin: Warm, dry Psychiatric: Pt has a normal mood and affect. BASIC LABS Last 24 Hours Basic Metabolic Panel: Hematology: [...] (11/09/24) MCHC: 34.6 (11/09/24) MCV: 87.9 (11/09/24) Char[place] Abs Man: 0.6 (11/09/24) Monocyte Man: 3.0 (11/09/24) MPV: 8.8 (11/09/24) Platelet: 168.0 (11/09/24) POC Device SN: [id number] (11/09/24) POC User ID: [id number] (11/09/24) POC Username: MAG SRIVASTAVA (11/09/24) Potassium Lvl: 3.8 (11/09/24) RBC: 4.1 (11/09/24) RDW: 13.6 (11/09/24) Segs Abs Man: 18.1 (11/09/24) Segs Man: 89.0 (11/09/24) Sodium Lvl: 132 (11/09/24) Total Protein: 6.7 (11/09/24) WBC: 20.1 (11/09/24) RADIOLOGY -- RUQ US: FINDINGS CONSISTENT WITH ACUTE CHOLECYSTITIS. MILDLY ENLARGED FATTY LIVER. MEDICAL DECISION MAKING ASSESSMENT/IMPRESSION: CIERA HAYES is a 69 Years-old Female with a PMHx of HTN, T2DM, HLD. Patient was a direct admit (more content not included)...[facility] Comment on above:Result Comment: Electronically Signed By: Bryant Stone PA-C\.br\Date and Time Signed: 11/09/24 16:47 EST\.br\Electronically Co- Signed By: Domenico Loo MD\.br\Date and Time Co-Signed: 11/11/2516:28 EST Discharge summary note 11-11-2024 Note Date & FrmfKofmKckaiquh07-06-2852 NoteDischarge Summary [place] [address] CIERA HAYES Date of : 1955 69 [...] on the right side of the abdomen. doesnot radiate. Has not eaten much in those 4 days due to pain. Denies fevers or chills. CT abd/pelvisat OSH consistent with acute cholecystitis. Past surgical [...] FOLLOW UP: With: Address: When: trauma clinic [address] [place] [address] 3, second floor, [address] [place] [phone] 11/16/2024 9:45 AM Comments: Call to schedule/confirm followup appointment With: Address: When: MARIETTA WASHINGTON CNP [address] [facility] [place] [place] [address] [phone] Within 7 to 10 days Comments: Call [...] and referral forms, and clear identification of reasonsto return to clinic or to emergency room.[facility]: Result Comment: Electronically Signed By: Dannielle Kim PA-C\.br\Date and Time Signed: 11/10/24 13:31 EST\.br\Electronically Co-Signed By: Domenico Loo MD\.br\Date and Time Co-Signed: 11/11/24 17:28 EST Hospital Discharge instructions 11-10-2024 Note Date & HnjzJvqsRnmpqadk33-98-0457 Hospital Discharge instructions Patient Education 11/10/2024 13:18:08 Carbohydrate Counting [...] It is important to know how many carbohydrates(in grams or by serving size) you can [...] sizes of common carbohydrate-rich foods. Each of theseservings has about 15 g of carbohydrates: 1 [...] 1.Identify the foods that contain carbohydrates: Rice. [place]. Milk. Strawberries. 2.Calculate how many servings you [...] and snacks. Where to find more information [place] [employer]: diabetes.org Centers for Disease Control [...] well you manage your blood glucose. This helpsyou manage your diabetes. A dietitian can help you make a meal plan and calculate how many carbohydrates you should have at each meal and snack. This information is not intended to replace advice given to you by your health care provider. Make sure you discuss any questions you have with your health care provider. Document Revised: 05/08/2021 Document Reviewed: 05/08/2021 [employer] Patient Education 2023 [employer] 11/10/2024 13:17:43 Hyperglycemia, Qkug-vb-Umkn Hyperglycemia Hyperglycemia is when the sugar (glucose) [...] these instructions at home: General instructions Take zvdf-avb-woxmgwc and prescription medicines only as told by [...] have diabetes. Where to find more information [place] [employer]: www.diabetes.org Contact a doctor if: [...] help right away. Call your local emergency services(911 in the [place] Do not wait to [...] provider. Document Revised: 07/18/2021 Document Reviewed: 07/19/2021 [employer] Patient Education 2023 [employer] 11/10/2024 13:17:36 Pratibha Valade[facility]) [place], [place] Yao Mckinnon MD, FACS DISCHARGE INSTRUCTIONS CARING FOR YOUR ÁNGEL-VILLARREAL DRAINAGE TUBE You have been discharged with a Ángel-Villarreal drainage tube. This tube will help healing and reducethe risk of infection by removing fluid through [...] of drainage lessens, usually 5-7 days after surgery.The leon will be removed in 10-14 days [...] IN CC'S #1 AMAFTERNOONPM #2 AMAFTERNOONPM Written: 06-2711/10/2024 13:17:25 Minimally Invasive Cholecystectomy, Care After, Tsvz-tc-Wbel Minimally Invasive Cholecystectomy, Care After What can [...] Follow these instructions at home: Medicines Take ogkv-een-ccebdjt and prescription medicines only as told by [...] cannot use soap and water, use hand vault attendant. ?Change your bandage. ?Leave stitches (sutures) or [...] provider. Document Revised: 04/08/2022 Document Reviewed: 04/08/2022 [employer] Patient Education 2023 [employer] 11/10/2024 13:17:22 Cholecystitis Cholecystitis Cholecystitis is inflammation of the gallbladder. Cholecystitis is often called a gallbladder attack. The gallbladder is a pear-shaped organ that lies beneath the liver on the right side of the body.The gallbladder stores a fluid that helps the [...] placed into the gallbladder to drain fluid. Thismay be done for people with moderate to severe cholecystitis who cannot have surgery. Follow these instructions at home: Medicines Take idzs-ugc-akexhip and prescription medicines only as told by your health care provider. If you were prescribed an antibiotic medicine, take it as told by your health care provider. Do notstop taking the antibiotic even if you start to feel better. General instructions Follow instructions from your health care provider about what to eat or drink. When you are allowedto eat, avoid eating or drinking anything that triggers your symptoms. Do not use any products that contain nicotine or tobacco. These products include cigarettes, chewing tobacco, and vaping devices, such as e-cigarettes. If you need help quitting, ask your health careprovider. Keep all follow-up visits. This is important. [...] for eating and drinking. Avoid eating anything thattriggers your symptoms. This information is not intended to replace advice given to you by your health care provider. Make sure you discuss any questions you have with your health care provider. Document Revised: 04/08/2022 Document Reviewed: 04/08/2022 [employer] Patient Education 2023 [employer]. Follow Up Care 11/08/2024 20:07:12 With:MARIETTA WASHINGTON CNP Address: [address] [facility] [place] [address]- [phone] When:11/15/2024 10:30:00 With:trauma clinic Address: [address] [facility] 3, second floor, [address] [place] [address]- [phone] When:11/16/2024 09:45:00 Comments:Call to schedule/confirm followup appointment [facility] Clinical Note 11-09-2024 Note Date & DpmtUgrzArwqmegn41-30-0653 NoteProgress Note-Physician Patient: CIERA HAYES Age: 69 years Sex: Female : 1955 Associated Diagnoses: None Author: Braeden Kumar Jr., DO Postoperative Information Postoperative disposition: Postoperative disposition: Home. Optimetrix number: Optimetrix number [id number]. Anesthetic utilized: General. Physical Examination Vital Signs [...] to Ambulatory Surgery Unit, and To home ).[facility]:Result Comment: Electronically Signed By: Braeden Kumar Jr., DO\.br\Date and Time Signed: 11/09/24 17:15 EST Evaluation + Plan note 11-09-2024 Note Date & SxyaOcevTgodbjzj93-23-7598 Evaluation + Plan noteExtracted from: Title:ANES Post-operative Note - GeneralAuthor:Braeden Kumar Jr., DO GDate: 11/09/24 Plan Transfer/Discharge: Transfer/Discharge Discharge when meets criteria ( From PACU to Ambulatory Surgery Unit, and To home ). Extracted from:Title:ANES Pre-operative Note - AdultAuthor:Braeden Kumar Jr., DO GDate:11/09/24 Patient: CIERA HAYES Age: 69 years Sex: [...] EST, 11/09/24 12:37:00 EST Lactated Ringers IV Guanaco 1000 mL 1,000 mL: 1,000 mL, IV, 100 mL/hr, Routine, Start date 11/09/24 12:37:00 EST, 10 hour(s), Total volume (mL): 1,000, 106.9 kg, 2.14, m2 Lactated Ringers IV Guanaco 1000 mL 1,000 mL: 1,000 mL, IV, 100, Routine, Start date 11/09/24 3:43:00 EST, Total volume (mL): 1,000, 106.9 kg, 2.14, m2 Sodium Chloride 0.9% IV Guanaco 1000 mL 1,000 mL: 1,000 mL, IV, 150 mL/hr, Routine, Start date 11/09/2509:14:00 EST, 6.7 hour(s), Total volume (mL): 1,000, [...] 7:27:00 EST enoxaparin 40 mg/0.4 mL SC Guanaco: 40 mg = 0.4 mL, Injection, SubCutaneous, Daily, Routine, Start date11/09/24 9:00:00 EST, 11/09/24 7:30:00 EST lisinopril 20 mg Tab: 40 mg = 2 tab(s), Tab, Oral, Daily, Routine, Start date 11/09/24 9:00:00 EST,11/09/24 7:27:00 EST oxyCODONE 5 mg Tab: 10 [...] date 11/09/24 6:00:00 EST, 200 mL/hr, Infuse over30 minute(s) senna 8.6 mg Tab: 8.6 mg [...] Oral, Daily enoxaparin 40 mg/0.4 mL SC Guanaco [F] 40 mg 0.4 mL, SubCutaneous, Daily [...] mL/hr PRN: (4) HYDROmorphone 0.5 mg/0.5 mL GUANACO [F] 0.5 mg 0.5 mL, IV Push, [...] Cap 215 mg/dL HI POC Device SN [id number] POC User ID [id number] POC Username SRIVASTAVAMAG 11/09/2024 11:39 EST Glucose Cap 216 mg/dL HI POC Device SN [id number] POC User ID [id number] POC Username KRISTIN ALICEA 11/09/2024 7:44 EST [...] E9/L NA Lymph Abs Man 1.4 E9/L Chariton Abs Man 0.6 E9/L Eos Abs Man [...] WAVE IN V1/V2], OF INDETERMINATE AGE. Plan [place] [employer]hesiologists (ASA) physical status classification: Class III, E. Anesthetic Preoperative Plan: Anesthesia General.Addendum by Braeden Kumar Jr., DO on November 09, 2024 12:[address] Clinical Note 11-09-2024 Note Date & XzewBvpmPifqmjmx73-99-3490 NoteProgress Note-Physician Patient: CIERA HAYES Age: 69 years Sex: [...] EST, 11/09/24 12:37:00 EST Lactated Ringers IV Guanaco 1000 mL 1,000 mL: 1,000 mL, IV, 100 mL/hr, Routine, Start date 11/09/24 12:37:00 EST, 10 hour(s), Total volume (mL): 1,000, 106.9 kg, 2.14, m2 Lactated Ringers IV Guanaco 1000 mL 1,000 mL: 1,000 mL, IV, 100, Routine, Start date 11/09/24 3:43:00 EST, Total volume (mL): 1,000, 106.9 kg, 2.14, m2 Sodium Chloride 0.9% IV Guanaco 1000 mL 1,000 mL: 1,000 mL, IV, 150 mL/hr, Routine, Start date 11/09/2509:14:00 EST, 6.7 hour(s), Total volume (mL): 1,000, [...] 7:27:00 EST enoxaparin 40 mg/0.4 mL SC Guanaco: 40 mg = 0.4 mL, Injection, SubCutaneous, Daily, Routine, Start date11/09/24 9:00:00 EST, 11/09/24 7:30:00 EST lisinopril 20 mg Tab: 40 mg = 2 tab(s), Tab, Oral, Daily, Routine, Start date 11/09/24 9:00:00 EST,11/09/24 7:27:00 EST oxyCODONE 5 mg Tab: 10 [...] date 11/09/24 6:00:00 EST, 200 mL/hr, Infuse over30 minute(s) senna 8.6 mg Tab: 8.6 mg [...] Oral, Daily enoxaparin 40 mg/0.4 mL SC Guanaco [F] 40 mg 0.4 mL, SubCutaneous, Daily [...] mL/hr PRN: (4) HYDROmorphone 0.5 mg/0.5 mL GUANACO [F] 0.5 mg 0.5 mL, IV Push, [...] selected or recorded. Proc (more content not included)...[facility]: Result Comment: Electronically Signed By: Braeden Kumar Jr., DO\.zuly\Date and Time Signed: 11/09/24 12:39 EST Hospital course Narrative Note Date & TypeNoteFacilityHospital course Narrative No data available for this section [facility] Hospital Discharge instructions Note Date & TypeNoteFacilityHospital Discharge instructions No data available for this section [facility] Progress note Note Date & TypeNoteFacilityProgress note No data available for this section [facility] Summary Purpose Family History No Family History [...] section and content) DATE CREATED AUTHOR 01/05/2023 [facility] DATE CREATED AUTHOR AUTHOR'S ORGANIZ ATION 11/10/2024 [facility] DATE CREATED AUTHOR AUTHOR'S ORGANIZ ATION 11/11/2024 [facility] DATE CREATED AUTHOR AUTHOR'S ORGANIZ ATION 11/12/2024 [facility] DATE CREATED AUTHOR AUTHOR'S ORGANIZ ATION 11/15/2024 [facility] DATE CREATED AUTHOR AUTHOR'S ORGANIZ ATION 01/31/2025 [facility] Patient Care team informatio n (unrecognized section and content) Personnel Name: MARIETTA WASHINGTON CNP Address: Address: [address] [place] [address] Personnel Name: MARIETTA WASHINGTON CNP Address: Address: [address] [place] [address] FOR RECORDS PERTAINING TO PATIENTS WHO ARE [...] BE BASED ON THE PRIMARY CLINICAL RECORDS. [facility] [employer] [facility]. provides no warranty or guarantee of the accuracy or completeness of information in this document.
== END 2025-08-23 09:03 | disposition home or self-care (01) ==
LOC: LAB 09:03
PROVIDERS: PCP Nurse Practitioner Family; Visit Provider Nurse Practitioner Family
DX: E11.9 Type 2 diabetes mellitus without complications (principal)
CPT/HCPCS: 36415; 83036